=== PATIENT | male | born 1985 | race African-American/Black ===

== ENCOUNTER 2017-01-18 18:05 | Emergency (ER) | payer OTHER ==
[2017-01-18] MEDS ORDERED: RX INFO: IV CONTRAST WAS GIVEN 1 EACH MISC MISCELLANE PRN (18:32)
[2017-01-18 18:58] LABS: Basophils # (A) 0.1 k/uL (0-0.2); Basophils % (A) 1 %; CHCM 33.4; Eosinophils # (A) 0.4 k/uL (0-0.7); Eosinophils % (A) 4 %; HCT 45.1 % (39.0-53.0); HDW 2.87; HGB 14.6 gm/dL (13.0-17.5); Luc % (Auto) 2; Lymphocytes # (A) 2.5 k/uL (1.0-4.8); Lymphocytes % (A) 22 %; MCH 26.4 pg (25.0-35.0); MCHC 32.4 g/dL (31.0-37.0); MCV 81.5 fL (80.0-100.0); Monocytes # (A) 0.5 k/uL (0-1.0); Monocytes % (A) 5 %; Neutrophils # (A) 7.5 k/uL (1.3-7.7); Neutrophils % (A) 67 %; RBC 5.53 m/uL (4.30-5.90); RDW 15.3 % (11.5-15.5); WBC 11.3 k/uL (3.8-10.6); WBC (Perox) 10.36
[2017-01-18 19:05] LABS: ALT 52 U/L (21-72); AST 36 U/L (17-59); Alkaline Phosphatase 111 U/L (38-126); Anion Gap 13 mmol/L; Blood Urea Nitrogen 19 mg/dL (9-20); Calcium 9.7 mg/dL (8.4-10.2); Carbon Dioxide 24 mmol/L (22-30); Chloride 104 mmol/L (98-107); Glucose 112 mg/dL (74-99); Non-African American GFR(MDRD) >60 (>60 ml/min/1.73 sqM); Potassium 3.7 mmol/L (3.5-5.1); Sodium 141 mmol/L (137-145); Total Bilirubin 0.5 mg/dL (0.2-1.3); Total Protein 7.6 g/dL (6.3-8.2)
--- NOTE | 2017-01-18 19:19 | ED ---
SOB HPI - General Chief Complaint: Shortness of Breath Stated Complaint: STEVE, LEG SWELLING HEART RACING Source: patient Mode of arrival: ambulatory Limitations: no limitations - History of Present Illness Initial Comments: Patient is a 31-year-old male who presents for evaluation for bilateral lower extremity swelling and exertional shortness of breath with chest tightness that started today. Past medical history as below. Patient states that he has a history of a fast heart rate in the 100s to 110s. However, he stated that he was having some chest tightness today. He also noticed that his lower extremities were both swollen and felt tight. He also states that he was more short of breath than usual. Denies any coughing. No long-distance travel. No history of DVTs or pulmonary embolisms. No history of clotting disorders in the family. States that at times he just can't catch his breath and feels like his heart is racing more than usual. He currently denies fever, chills, headache, changes in vision, URI symptoms, cough, nausea, vomiting, diarrhea, pain or burning with urination. - Related Data Home Medications Medication Instructions Recorded Confirmed ALPRAZolam [Xanax] 2 mg PO TID 02/04/16 01/18/17 Hydrocodone/Acetaminophen [[place] 1 tab PO Q6HR PRN 02/04/16 01/18/17 7.5-325] amLODIPine [Norvasc] 10 mg PO DAILY 02/04/16 01/18/17 Losartan/Hydrochlorothiazide 1 tab PO DAILY 01/18/17 01/18/17 [Losartan-Hctz 100-25 mg Tab] Allergies Allergy/AdvReac Type Severity Reaction Status Date / Time No Known Allergies Allergy Verified 01/18/17 18:31 Review of Systems ROS Statement: Those systems with pertinent positive or pertinent negative responses have been documented in the HPI. ROS Other: All systems not noted in ROS Statement are negative. Past Medical History Past Medical History: Hypertension History of Any Multi-Drug Resistant Organisms: None Reported Past Surgical History: No Surgical Hx Reported Past Psychological History: Anxiety Smoking Status: Never smoker Past Alcohol Use History: None Reported Past Drug Use History: None Reported General Exam Limitations: no limitations General appearance: alert, in no apparent distress, other (Nontoxic appearing) Head exam: Present: atraumatic, normocephalic, normal inspection Eye exam: Present: normal appearance, PERRL, EOMI. Absent: scleral icterus, conjunctival injection, periorbital swelling ENT exam: Present: normal exam, mucous membranes moist Neck exam: Present: normal inspection. Absent: tenderness, meningismus, lymphadenopathy Respiratory exam: Present: normal lung sounds bilaterally, other (Clear bilaterally without wheezes rales or rhonchi). Absent: respiratory distress, wheezes, rales, rhonchi, stridor Cardiovascular Exam: Present: regular rate, normal rhythm, normal heart sounds, other (Normal S1 and S2. No murmurs.). Absent: systolic murmur, diastolic murmur, rubs, gallop, clicks GI/Abdominal exam: Present: soft, normal bowel sounds, other (Abdomen is soft and nontender.). Absent: distended, tenderness, guarding, rebound, rigid Extremities exam: Present: normal inspection, full ROM, normal capillary refill , pedal edema, other (Nonpitting edema to the lower chimneys bilaterally. No tenderness with palpation of the back of his calf bilaterally.). Absent: tenderness, joint swelling, calf tenderness Back exam: Present: normal inspection Neurological exam: Present: alert, oriented X3, CN II-XII intact Psychiatric exam: Present: normal affect, normal mood Skin exam: Present: warm, dry, intact, normal color. Absent: rash Course Vital Signs 01/18/17 01/18/17 01/18/17 18:07 18:44 19:57 Temperature 98.7 F Pulse Rate 112 H 101 H 84 Respiratory 20 20 16 Rate Blood Pressure 142/81 161/86 162/70 O2 Sat by Pulse 97 95 99 Oximetry 01/18/17 21:29 Temperature 98.4 F Pulse Rate 88 Respiratory 18 Rate Blood Pressure 154/70 O2 Sat by Pulse 99 Oximetry Medical Decision Making - Medical Decision Making Patient is a 31-year-old male presents for evaluation for bilateral lower extremity swelling and exertional dyspnea was some chest tightness. We'll order a venous duplex of the lower chimneys bilaterally, CTA of the chest to rule out pulmonary embolism, ASIC labs with a troponin and BNP. 1835: Sinus tachycardia at 103. First-degree AV block. OR interval 218. QRS 106. QTc 440. Questionable S1 Q3 T3. Otherwise no ST changes. 1919: CBC and CMP within normal limits. Awaiting troponin and imaging. 2120: Venous duplex negative. CTA of his chest did not reveal a pulmonary embolism. Had a discussion with the patient at bedside with his mother. Believe his symptoms at this time related to dehydration. Encouraged elevating legs at night. Plenty of fluids. His heart rate is on the low 100s which again is at his baseline. Shortness of breath is resolved. Has a primary care physician in which she can follow-up with. Comfortable with discharge home. Discussed specific signs and symptoms on when to return to the emergency department for further evaluation. Voiced understanding and will follow-up. Also discussed that the patient needs to repeat his blood pressure is slightly elevated today. - Lab Data Result diagrams: 01/18/17 18:41 01/18/17 18:41 Lab Results 01/18/17 01/18/17 01/18/17 Range/Units 18:41 18:41 18:41 WBC 11.3 H (3.8-10.6) k/uL RBC 5.53 (4.30-5.90) m/uL Hgb 14.6 (13.0-17.5) gm/dL Hct 45.1 (39.0-53.0) % MCV 81.5 (80.0-100.0) fL MCH 26.4 (25.0-35.0) pg MCHC 32.4 (31.0-37.0) g/dL RDW 15.3 (11.5-15.5) % Plt Count 339 (150-450) k/uL Neutrophils % 67 % Lymphocytes % 22 % Monocytes % 5 % Eosinophils % 4 % Basophils % 1 % Neutrophils # 7.5 (1.3-7.7) k/uL Lymphocytes # 2.5 (1.0-4.8) k/uL Monocytes # 0.5 (0-1.0) k/uL Eosinophils # 0.4 (0-0.7) k/uL Basophils # 0.1 (0-0.2) k/uL Sodium 141 (137-145) mmol/L Potassium 3.7 (3.5-5.1) mmol/L Chloride 104 (98-107) mmol/L Carbon Dioxide 24 (22-30) mmol/L Anion Gap 13 mmol/L BUN 19 (9-20) mg/dL Creatinine 1.00 (0.66-1.25) mg/dL Est GFR (MDRD) Af Amer >60 (>60 ml/min/1.73 sqM) Est GFR (MDRD) Non-Af >60 (>60 ml/min/1.73 sqM) Glucose 112 H (74-99) mg/dL Calcium 9.7 (8.4-10.2) mg/dL Total Bilirubin 0.5 (0.2-1.3) mg/dL AST 36 (17-59) U/L ALT 52 (21-72) U/L Alkaline Phosphatase 111 (38-126) U/L Troponin I (0.000-0.034) ng/mL NT-Pro-B Natriuret Pep <11 pg/mL Total Protein 7.6 (6.3-8.2) g/dL Albumin 4.3 (3.5-5.0) g/dL 01/18/17 Range/Units 18:41 WBC (3.8-10.6) k/uL RBC (4.30-5.90) m/uL Hgb (13.0-17.5) gm/dL Hct (39.0-53.0) % MCV (80.0-100.0) fL MCH (25.0-35.0) pg MCHC (31.0-37.0) g/dL RDW (11.5-15.5) % Plt Count (150-450) k/uL Neutrophils % % Lymphocytes % % Monocytes % % Eosinophils % % Basophils % % Neutrophils # (1.3-7.7) k/uL Lymphocytes # (1.0-4.8) k/uL Monocytes # (0-1.0) k/uL Eosinophils # (0-0.7) k/uL Basophils # (0-0.2) k/uL Sodium (137-145) mmol/L Potassium (3.5-5.1) mmol/L Chloride (98-107) mmol/L Carbon Dioxide (22-30) mmol/L Anion Gap mmol/L BUN (9-20) mg/dL Creatinine (0.66-1.25) mg/dL Est GFR (MDRD) Af Amer (>60 ml/min/1.73 sqM) Est GFR (MDRD) Non-Af (>60 ml/min/1.73 sqM) Glucose (74-99) mg/dL Calcium (8.4-10.2) mg/dL Total Bilirubin (0.2-1.3) mg/dL AST (17-59) U/L ALT (21-72) U/L Alkaline Phosphatase (38-126) U/L Troponin I <0.012 (0.000-0.034) ng/mL NT-Pro-B Natriuret Pep pg/mL Total Protein (6.3-8.2) g/dL Albumin (3.5-5.0) g/dL Disposition Clinical Impression: Leg swelling, Shortness of breath, Hypertension Disposition: HOME SELF-CARE Condition: Good Instructions: Leg Edema (ED) Referrals: Rafiq Mendoza MD [Primary Care Provider] - 1-2 days
--- NOTE | 2017-01-18 20:09 | CT ---
EXAMINATION TYPE: CT angio chest DATE OF EXAM: 01/18/2017 COMPARISON: NONE HISTORY: CHEST PAIN/BILATERAL LEG SWELLING. CT DLP: 946.8 mGycm CONTRAST: CT chest with contrast and 3D reconstruction with MIP imaging is performed with IV Contrast, patient injected with 80 mL of Omnipaque 350. Contrast-enhanced CT of the chest was performed through the course of the pulmonary arteries with emily g and mediastinal window settings submitted. 3D reconstruction with MIP imaging was also performed. PULMONARY ARTERIES: The pulmonary arteries and their major tributaries are patent. I do not see anthony dence for sizable filling defect to suggest pulmonary embolic process. LUNGS: The lungs are clear and free of infiltrate. No evidence for atelectasis. No pulmonary nodule or mass is detected. No pleural effusion. MEDIASTINUM: Thoracic aorta is of normal caliber . The heart is not enlarged. No evidence for media stinal mass. No mediastinal lymph nodes greater than 1cm. HILAR STRUCTURES: No evidence for mass. No hilar lymph nodes greater than 1 cm. UPPER ABDOMEN: No significant abnormality is seen. IMPRESSION: 1. No evidence for Pulmonary embolism at this time.
--- NOTE | 2017-01-18 21:13 | US ---
EXAMINATION TYPE: US venous doppler duplex LE DATE OF EXAM: 01/18/2017 9:06 PM COMPARISON: NONE CLINICAL HISTORY: Pain. BILATERAL EDEMA SIDE PERFORMED: Bilateral TECHNIQUE: The lower extremity deep venous system is examined utilizing real time linear array sonog ana with graded compression, doppler sonography and color-flow sonography. VESSELS IMAGED: External Iliac Vein (EIV) Common Femoral Vein Deep Femoral Vein Greater Saphenous Vein * Femoral Vein Popliteal Vein Small Saphenous Vein * Proximal Calf Veins (* superficial vessels) Grayscale, color doppler, spectral doppler imaging performed of the deep veins of the lower extremiti es. There is normal flow, compressibility, vascular waveforms. Right Leg: Negative for DVT Left Leg: Negative for DVT IMPRESSION: No evidence for DVT bilateral legs
[2017-01-18 21:30] VITALS: BP 154/70; PULSE 88; RESP 18; TEMP 98.4
== END 2017-01-18 21:29 | disposition home or self-care (01) ==
LOC: EC 18:05
DX: R06.02 Shortness of breath (principal); M79.89 Other specified soft tissue disorders; I10 Essential (primary) hypertension; F41.9 Anxiety disorder, unspecified; Z79.899 Other long term (current) drug therapy
CPT/HCPCS: 36415; 93005; 83880; 80053; 84484; 85025; 93970; 71275; 99285; Q9967

== ENCOUNTER 2017-04-13 15:03 | Emergency (ER) | payer OTHER ==
[2017-04-13] MEDS ORDERED: IPRATROPIUM-ALBUTEROL 3 ML NEB INHALATION STA (16:01)
--- NOTE | 2017-04-13 16:01 | ED ---
General Adult HPI - General Chief complaint: Shortness of Breath Stated complaint: SOB-sent by Time Seen by Provider: 04/13/17 15:54 Source: patient Mode of arrival: wheelchair Limitations: no limitations - History of Present Illness Initial comments: Rachael is a morbidly obese 31-year-old -Portuguese male who presents to the emergency department from his PCP office for evaluation of shortness of breath. 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 Patient reports in the past couple of weeks he has noticed worsening shortness of breath. Patient reports he feels short of breath with any exertion, and that he wakes the night gasping for air. Patient reports he feels the best when he was sitting in a reclined position relaxing. Patient was seen by his primary care physician, had chest x-rays done and was sent to the emergency department for cardiac evaluation. Patient denies any episodes of chest pain or palpitations. He does report a strong family history of cardiac disease as well as a personal history of poorly controlled hypertension. Patient does report to weight gain, however he denies any lower extremity edema. Patient reports that as a child he was never diagnosed with asthma but did occasionally use an inhaler. He has not used in a number of years. Feel like he is wheezing. - Related Data Home Medications Medication Instructions Recorded Confirmed ALPRAZolam [Xanax] 2 mg PO TID 02/04/16 04/13/17 Hydrocodone/Acetaminophen [[place] 1 tab PO Q6HR PRN 02/04/16 04/13/17 7.5-325] amLODIPine [Norvasc] 10 mg PO DAILY 02/04/16 04/13/17 Losartan/Hydrochlorothiazide 1 tab PO DAILY 01/18/17 04/13/17 [Losartan-Hctz 100-25 mg Tab] diphenhydrAMINE HCL [Benadryl] 25 mg PO HS PRN 04/13/17 04/13/17 Allergies Allergy/AdvReac Type Severity Reaction Status Date / Time erythromycin base Allergy Unknown Verified 04/13/17 16:06 Review of Systems ROS Statement: Those systems with pertinent positive or pertinent negative responses have been documented in the HPI. ROS Other: All systems not noted in ROS Statement are negative. Constitutional: Denies: fever, chills ENT: Denies: throat pain Respiratory: Reports: dyspnea, other (orthopnea, paroxysmal nocturnal dyspnea). Denies: cough Cardiovascular: Reports: dyspnea on exertion, orthopnea, paroxysmal nocturnal dyspnea. Denies: chest pain, palpitations, edema, syncope Endocrine: Reports: fatigue Gastrointestinal: Denies: abdominal pain, nausea, vomiting Genitourinary: Denies: urgency, dysuria Musculoskeletal: Denies: back pain Skin: Denies: rash, lesions Neurological: Denies: headache, weakness Psychiatric: Denies: anxiety, depression Hematological/Lymphatic: Denies: easy bleeding, easy bruising Past Medical History Past Medical History: Hypertension History of Any Multi-Drug Resistant Organisms: None Reported Past Surgical History: No Surgical Hx Reported Past Psychological History: Anxiety Smoking Status: Never smoker Past Alcohol Use History: None Reported Past Drug Use History: None Reported General Exam Limitations: no limitations General appearance: alert, in no apparent distress Head exam: Present: atraumatic Eye exam: Present: normal appearance, PERRL ENT exam: Present: normal exam, normal oropharynx Neck exam: Present: other (skin changes consistent with diabetes) Respiratory exam: Present: wheezes Cardiovascular Exam: Present: regular rate GI/Abdominal exam: Present: soft. Absent: distended Rectal exam: Present: deferred Extremities exam: Present: normal capillary refill. Absent: pedal edema, calf tenderness Neurological exam: Present: alert, oriented X3 Psychiatric exam: Present: normal affect, normal mood Skin exam: Present: warm, dry Course Vital Signs 04/13/17 04/13/17 04/13/17 15:07 16:18 16:27 Temperature 99.1 F Pulse Rate 100 101 H 101 H Respiratory 18 Rate Blood Pressure 143/81 O2 Sat by Pulse 96 Oximetry 04/13/17 18:48 Temperature 98.1 F Pulse Rate 88 Respiratory 17 Rate Blood Pressure 160/89 O2 Sat by Pulse 97 Oximetry Medical Decision Making - Medical Decision Making Patient was seen and evaluated, history obtained from patient, medical record Patient with progressively worsening SOB x2 weeks, is exposed to multiple chemicals at work Patient body habitus and history of waking from sleep gasping for air are concerning for EZEQUIEL or obesity hypoventilation syndrome Labs ordered to evaluate for possible PE vs coronary syndrome resulting in heart failure Patient chest x-ray was reviewed, no acute findings Labs were reviewed, d-dimer, troponin, BNP were all negative I offered the patient observation for reevaluation of his shortness of breath, patient states that he doesn't feel he needs to be in the hospital this time and much prefer discharge home. Patient does have a good relationship with his primary care physician and will follow closely. I do have a high concern that the patient has obstructive sleep apnea as well as obesity hypoventilation syndrome I discussed this with the patient who states that he has been referred to sleep studies in the past however he has not followed up. I advised the patient that he needs to follow up with his primary care physician, referral to cardiology as well as pursue sleep study. I advised the patient that he would likely benefit from weight loss, patient is aware of this. All questions pertaining to care were answered to the best of my ability the patient was discharged home in stable condition with instructions to return for any worsening of his condition or development of new or concerning symptoms. - Lab Data Result diagrams: 04/13/17 16:28 04/13/17 16:28 Lab Results 04/13/17 04/13/17 04/13/17 Range/Units 16:28 16:28 16:28 WBC 13.0 H (3.8-10.6) k/uL RBC 6.04 H (4.30-5.90) m/uL Hgb 15.5 (13.0-17.5) gm/dL Hct 49.5 (39.0-53.0) % MCV 81.9 (80.0-100.0) fL MCH 25.6 (25.0-35.0) pg MCHC 31.2 (31.0-37.0) g/dL RDW 16.5 H (11.5-15.5) % Plt Count 374 (150-450) k/uL Neutrophils % 68 % Lymphocytes % 21 % Monocytes % 4 % Eosinophils % 4 % Basophils % 1 % Neutrophils # 8.8 H (1.3-7.7) k/uL Lymphocytes # 2.8 (1.0-4.8) k/uL Monocytes # 0.6 (0-1.0) k/uL Eosinophils # 0.5 (0-0.7) k/uL Basophils # 0.1 (0-0.2) k/uL Anisocytosis Slight PT (9.0-12.0) sec INR (<1.2) APTT (22.0-30.0) sec Sodium 140 (137-145) mmol/L Potassium 5.4 H (3.5-5.1) mmol/L Chloride 107 (98-107) mmol/L Carbon Dioxide 23 (22-30) mmol/L Anion Gap 10 mmol/L BUN 17 (9-20) mg/dL Creatinine 0.79 (0.66-1.25) mg/dL Est GFR (MDRD) Af Amer >60 (>60 ml/min/1.73 sqM) Est GFR (MDRD) Non-Af >60 (>60 ml/min/1.73 sqM) Glucose 144 H (74-99) mg/dL Calcium 9.7 (8.4-10.2) mg/dL Total Bilirubin 0.6 (0.2-1.3) mg/dL AST 41 (17-59) U/L ALT 42 (21-72) U/L Alkaline Phosphatase 81 (38-126) U/L Troponin I (0.000-0.034) ng/mL NT-Pro-B Natriuret Pep 32 pg/mL Total Protein 8.2 (6.3-8.2) g/dL Albumin 4.3 (3.5-5.0) g/dL Urine Color Urine Appearance (Clear) Urine pH (5.0-8.0) Ur Specific [place] (1.001-1.035) Urine Protein (Negative) Urine Glucose (UA) (Negative) Urine Ketones (Negative) Urine Blood (Negative) Urine Nitrite (Negative) Urine Bilirubin (Negative) Urine Urobilinogen (<2.0) mg/dL Ur Leukocyte Esterase (Negative) 04/13/17 04/13/17 04/13/17 Range/Units 16:28 16:28 16:33 WBC (3.8-10.6) k/uL RBC (4.30-5.90) m/uL Hgb (13.0-17.5) gm/dL Hct (39.0-53.0) % MCV (80.0-100.0) fL MCH (25.0-35.0) pg MCHC (31.0-37.0) g/dL RDW (11.5-15.5) % Plt Count (150-450) k/uL Neutrophils % % Lymphocytes % % Monocytes % % Eosinophils % % Basophils % % Neutrophils # (1.3-7.7) k/uL Lymphocytes # (1.0-4.8) k/uL Monocytes # (0-1.0) k/uL Eosinophils # (0-0.7) k/uL Basophils # (0-0.2) k/uL Anisocytosis PT 10.9 (9.0-12.0) sec INR 1.1 (<1.2) APTT 20.9 L (22.0-30.0) sec Sodium (137-145) mmol/L Potassium (3.5-5.1) mmol/L Chloride (98-107) mmol/L Carbon Dioxide (22-30) mmol/L Anion Gap mmol/L BUN (9-20) mg/dL Creatinine (0.66-1.25) mg/dL Est GFR (MDRD) Af Amer (>60 ml/min/1.73 sqM) Est GFR (MDRD) Non-Af (>60 ml/min/1.73 sqM) Glucose (74-99) mg/dL Calcium (8.4-10.2) mg/dL Total Bilirubin (0.2-1.3) mg/dL AST (17-59) U/L ALT (21-72) U/L Alkaline Phosphatase (38-126) U/L Troponin I <0.012 (0.000-0.034) ng/mL NT-Pro-B Natriuret Pep pg/mL Total Protein (6.3-8.2) g/dL Albumin (3.5-5.0) g/dL Urine Color Yellow Urine Appearance Clear (Clear) Urine pH 5.5 (5.0-8.0) Ur Specific [place] 1.019 (1.001-1.035) Urine Protein Negative (Negative) Urine Glucose (UA) Negative (Negative) Urine Ketones Negative (Negative) Urine Blood Negative (Negative) Urine Nitrite Negative (Negative) Urine Bilirubin Negative (Negative) Urine Urobilinogen <2.0 (<2.0) mg/dL Ur Leukocyte Esterase Negative (Negative) Disposition Clinical Impression: Shortness of breath, Obesity hypoventilation syndrome, EZEQUIEL (obstructive sleep apnea) Disposition: HOME SELF-CARE Condition: Good Instructions: Snoring (ED), Dyspnea (ED) Referrals: Rafiq Mendoza MD [Primary Care Provider] - 1-2 days
[2017-04-13 16:41] LABS: Appearance,Urine Clear (Clear); Bilirubin,Urine Negative (Negative); Glucose,Urine (UA) Negative (Negative); Ketones,Urine Negative (Negative); Leukocyte Esterase,Urine Negative (Negative); Nitrite,Urine Negative (Negative); PH, Urine 5.5 (5.0-8.0); Protein,Urine Negative (Negative); Specific Gravity,Urine 1.019 (1.001-1.035); UA Billing (MACRO vs. MICRO) CHEM; Urobilinogen,Urine <2.0 mg/dL (<2.0)
[2017-04-13 16:51] LABS: Anisocytosis Slight; Basophils # (A) 0.1 k/uL (0-0.2); Basophils % (A) 1 %; CH 26.2; CHCM 32.2; Eosinophils # (A) 0.5 k/uL (0-0.7); Eosinophils % (A) 4 %; HCT 49.5 % (39.0-53.0); HDW 2.82; HGB 15.5 gm/dL (13.0-17.5); Luc # (Auto) 0.14; Luc % (Auto) 1; Lymphocytes # (A) 2.8 k/uL (1.0-4.8); Lymphocytes % (A) 21 %; MCH 25.6 pg (25.0-35.0); MCHC 31.2 g/dL (31.0-37.0); MCV 81.9 fL (80.0-100.0); Mean Platelet Volume 8.3; Monocytes # (A) 0.6 k/uL (0-1.0); Monocytes % (A) 4 %; Neutrophils # (A) 8.8 k/uL (1.3-7.7); Neutrophils % (A) 68 %; RBC 6.04 m/uL (4.30-5.90); RDW 16.5 % (11.5-15.5); WBC (Perox) 12.67
[2017-04-13 16:55] LABS: ALT 42 U/L (21-72); AST 41 U/L (17-59); Alkaline Phosphatase 81 U/L (38-126); Anion Gap 10 mmol/L; Blood Urea Nitrogen 17 mg/dL (9-20); Calcium 9.7 mg/dL (8.4-10.2); Carbon Dioxide 23 mmol/L (22-30); Chloride 107 mmol/L (98-107); Glucose 144 mg/dL (74-99); Non-African American GFR(MDRD) >60 (>60 ml/min/1.73 sqM); Sodium 140 mmol/L (137-145); Total Bilirubin 0.6 mg/dL (0.2-1.3); Total Protein 8.2 g/dL (6.3-8.2)
[2017-04-13 16:57] LABS: Partial Thromboplastin Time 20.9 sec (22.0-30.0); Prothrombin Time 10.9 sec (9.0-12.0)
[2017-04-13 16:58] LABS: INR 1.1 (<1.2)
[2017-04-13 17:00] LABS: Potassium 5.4 mmol/L (3.5-5.1)
[2017-04-13 18:50] VITALS: BP 160/89; PULSE 88; RESP 17; TEMP 98.1
== END 2017-04-13 18:47 | disposition home or self-care (01) ==
LOC: EC 15:03
DX: E66.2 Morbid (severe) obesity with alveolar hypoventilation (principal); R06.02 Shortness of breath; R06.2 Wheezing; I10 Essential (primary) hypertension; F41.9 Anxiety disorder, unspecified; Z79.899 Other long term (current) drug therapy; Z88.1 Allergy status to other antibiotic agents; Z68.43 Body mass index [BMI] 50.0-59.9, adult; Z82.49 Family history of ischemic heart disease and other diseases of the circulatory system
CPT/HCPCS: 36415; 71020; 80053; 81003; 83880; 84484; 85025; 85610; 85730; 93005; 94640; 99285

== ENCOUNTER → 2017-04-13 | Outpatient (CLI) | payer OTHER ==
--- NOTE | 2017-04-13 13:01 | XR ---
EXAMINATION TYPE: XR chest 2V DATE OF EXAM: 04/13/2017 COMPARISON: 02/07/2012 TECHNIQUE: PA and lateral views submitted. HISTORY: Shortness of breath FINDINGS: The lungs are clear and there is no pneumothorax, pleural effusion, or focal pneumonia. Biapical pl eural thickening noted. IMPRESSION: 1. No acute process.
== END | disposition home or self-care (01) ==
LOC: RADXRMAIN 12:36
PROVIDERS: ATTEND Physician Assistant
DX: R06.00 Dyspnea, unspecified (principal)
CPT/HCPCS: 71020

== ENCOUNTER 2017-04-16 08:34 | Emergency (ER) | payer OTHER ==
--- NOTE | 2017-04-16 09:26 | ED ---
General Adult HPI - General Chief complaint: Recheck/Abnormal Lab/Rx Stated complaint: STEVE, CHEST PAIN Time Seen by Provider: 04/16/17 09:00 Source: patient, RN notes reviewed, old records reviewed Mode of arrival: wheelchair Limitations: no limitations - History of Present Illness Initial comments: Patient is a 31-year-old male who presents emergency room today with a chief complaint of shortness breath over the last few weeks. Patient does admit that he was sent in by the family doctor a few days ago. States he had EKG which showed a bundle branch block here. He states that he's been feeling short of breath with exertion over the last week. States still having same symptoms. Not feeling any better. Patient denies any symptoms. States at times chest pain. Currently not having chest pain at this time. Denies any other complaints or symptoms. Patient denies any recent fever, chills, back pain, abdominal pain, nausea or vomiting, numbness or tingling, dysuria or hematuria, constipation or diarrhea, headaches or visual changes, or any other complaints. - Related Data Home Medications Medication Instructions Recorded Confirmed ALPRAZolam [Xanax] 2 mg PO TID 02/04/16 04/16/17 Hydrocodone/Acetaminophen [[place] 1 tab PO Q6HR PRN 02/04/16 04/16/17 7.5-325] amLODIPine [Norvasc] 10 mg PO DAILY 02/04/16 04/16/17 Losartan/Hydrochlorothiazide 1 tab PO DAILY 01/18/17 04/16/17 [Losartan-Hctz 100-25 mg Tab] diphenhydrAMINE HCL [Benadryl] 25 mg PO HS PRN 04/13/17 04/16/17 Amoxicillin 500 mg PO TID 04/16/17 04/16/17 Previous Rx's Medication Instructions Recorded Albuterol Inhaler [Ventolin Hfa 1 - 2 puff INHALATION Q4-6H PRN #1 04/16/17 Inhaler] inhaler Allergies Allergy/AdvReac Type Severity Reaction Status Date / Time erythromycin base Allergy Unknown Verified 04/16/17 09:12 Review of Systems ROS Statement: Those systems with pertinent positive or pertinent negative responses have been documented in the HPI. ROS Other: All systems not noted in ROS Statement are negative. Past Medical History Past Medical History: Hypertension History of Any Multi-Drug Resistant Organisms: None Reported Past Surgical History: No Surgical Hx Reported Past Psychological History: Anxiety Smoking Status: Never smoker Past Alcohol Use History: None Reported Past Drug Use History: None Reported General Exam - General Exam Comments Initial Comments: General: The patient is awake and alert, in no distress, and does not appear acutely ill. Eye: Pupils are equal, round and reactive to light, extra-ocular movements are intact. No nystagmus. There is normal conjunctiva bilaterally. No signs of icterus. Ears, nose, mouth and throat: There are moist mucous membranes and no oral lesions. Neck: The neck is supple, there is no tenderness or JVD. Cardiovascular: There is a regular rate and rhythm. No murmur, rub or gallop is appreciated. Respiratory: Lungs are clear to auscultation, respirations are non-labored, breath sounds are equal. No wheezes, stridor, rales, or rhonchi. Gastrointestinal: Soft, non-distended, non-tender abdomen without masses or organomegaly noted. There is no rebound or guarding present. No CVA tenderness. Bowel sounds are unremarkable. Musculoskeletal: Normal ROM, no tenderness. Strength 5/5. Sensation intact. Pulses equal bilaterally 2+. Neurological: A&O x 3. CN II-XII intact, There are no obvious motor or sensory deficits. Coordination appears grossly intact. Speech is normal. Skin: Skin is warm and dry and no rashes or lesions are noted. Psychiatric: Cooperative, appropriate mood & affect, normal judgment. Limitations: no limitations Course Vital Signs 04/16/17 04/16/17 08:44 11:08 Temperature 96.4 F L Pulse Rate 108 H 104 H Respiratory 20 16 Rate Blood Pressure 141/83 143/70 O2 Sat by Pulse 100 96 Oximetry EKG Findings - EKG Comments: EKG Findings:: EKG performed at 0939: A 12-lead EKG was performed and interpreted by me as showing the following: Rate is 98, and rhythm is normal sinus. There are normal QRS complexes and normal R-wave progression. ST segments have no elevation or depression, and OH segments appear normal. Medical Decision Making - Medical Decision Making Patient's labs been reviewed are negative for any acute abnormalities. Negative cardiac enzymes. Patient's recent visits here in the emergency room just 3 days ago was reviewed and had similar findings. Was discussed with patient about following up the sleep study with possible obstructive sleep apnea. Patient states she still try to follow-up. He states she's tried follow -up with shift superintendent caustic cresylate as well. At this time due to patient's symptoms. We discussed about the possibility of doing a CT of his chest. [place] that the symptoms were getting worse. He states that this time he is feeling relatively comfortable does not want CAT scan performed. Patient did have a negative d- dimer just days ago. Patient's pulse ox still here in the emergency room. Patient states HIS family doctor at this time. Has declined any CT or further evaluation. Patient will be discharged home advised follow-up. Advised return if any symptoms increase or worsen. - Lab Data Result diagrams: 04/16/17 09:58 04/16/17 09:58 Lab Results 04/16/17 04/16/17 04/16/17 Range/Units 09:58 09:58 09:58 WBC 10.7 H (3.8-10.6) k/uL RBC 5.83 (4.30-5.90) m/uL Hgb 15.4 (13.0-17.5) gm/dL Hct 47.6 (39.0-53.0) % MCV 81.6 (80.0-100.0) fL MCH 26.4 (25.0-35.0) pg MCHC 32.4 (31.0-37.0) g/dL RDW 15.9 H (11.5-15.5) % Plt Count 358 (150-450) k/uL Neutrophils % 71 % Lymphocytes % 19 % Monocytes % 4 % Eosinophils % 4 % Basophils % 1 % Neutrophils # 7.6 (1.3-7.7) k/uL Lymphocytes # 2.0 (1.0-4.8) k/uL Monocytes # 0.4 (0-1.0) k/uL Eosinophils # 0.4 (0-0.7) k/uL Basophils # 0.1 (0-0.2) k/uL PT (9.0-12.0) sec INR (<1.2) APTT (22.0-30.0) sec Sodium 140 (137-145) mmol/L Potassium 4.2 (3.5-5.1) mmol/L Chloride 106 (98-107) mmol/L Carbon Dioxide 22 (22-30) mmol/L Anion Gap 12 mmol/L BUN 20 (9-20) mg/dL Creatinine 0.87 (0.66-1.25) mg/dL Est GFR (MDRD) Af Amer >60 (>60 ml/min/1.73 sqM) Est GFR (MDRD) Non-Af >60 (>60 ml/min/1.73 sqM) Glucose 142 H (74-99) mg/dL Calcium 10.1 (8.4-10.2) mg/dL Magnesium 1.8 (1.6-2.3) mg/dL Total Bilirubin 0.4 (0.2-1.3) mg/dL AST 25 (17-59) U/L ALT 47 (21-72) U/L Alkaline Phosphatase 90 (38-126) U/L Total Creatine Kinase 189 H (55-170) U/L CK-MB (CK-2) 2.2 (0.0-2.4) ng/mL CK-MB (CK-2) Rel Index 1.2 Troponin I <0.012 (0.000-0.034) ng/mL NT-Pro-B Natriuret Pep pg/mL Total Protein 7.6 (6.3-8.2) g/dL Albumin 4.0 (3.5-5.0) g/dL 04/16/17 04/16/17 Range/Units 09:58 09:58 WBC (3.8-10.6) k/uL RBC (4.30-5.90) m/uL Hgb (13.0-17.5) gm/dL Hct (39.0-53.0) % MCV (80.0-100.0) fL MCH (25.0-35.0) pg MCHC (31.0-37.0) g/dL RDW (11.5-15.5) % Plt Count (150-450) k/uL Neutrophils % % Lymphocytes % % Monocytes % % Eosinophils % % Basophils % % Neutrophils # (1.3-7.7) k/uL Lymphocytes # (1.0-4.8) k/uL Monocytes # (0-1.0) k/uL Eosinophils # (0-0.7) k/uL Basophils # (0-0.2) k/uL PT 10.5 (9.0-12.0) sec INR 1.0 (<1.2) APTT 25.6 (22.0-30.0) sec Sodium (137-145) mmol/L Potassium (3.5-5.1) mmol/L Chloride (98-107) mmol/L Carbon Dioxide (22-30) mmol/L Anion Gap mmol/L BUN (9-20) mg/dL Creatinine (0.66-1.25) mg/dL Est GFR (MDRD) Af Amer (>60 ml/min/1.73 sqM) Est GFR (MDRD) Non-Af (>60 ml/min/1.73 sqM) Glucose (74-99) mg/dL Calcium (8.4-10.2) mg/dL Magnesium (1.6-2.3) mg/dL Total Bilirubin (0.2-1.3) mg/dL AST (17-59) U/L ALT (21-72) U/L Alkaline Phosphatase (38-126) U/L Total Creatine Kinase (55-170) U/L CK-MB (CK-2) (0.0-2.4) ng/mL CK-MB (CK-2) Rel Index Troponin I (0.000-0.034) ng/mL NT-Pro-B Natriuret Pep <11 pg/mL Total Protein (6.3-8.2) g/dL Albumin (3.5-5.0) g/dL Disposition Clinical Impression: Shortness of breath, EZEQUIEL (obstructive sleep apnea) Disposition: HOME SELF-CARE Condition: Good Instructions: Dyspnea (ED) Additional Instructions: Please follow-up the shift superintendent caustic cresylate/family doctor in the next 1-2 days. Please return to emergency room if any symptoms increase worsen or for new concerns. Prescriptions: Albuterol Inhaler [Ventolin Hfa Inhaler] 1 - 2 puff INHALATION Q4-6H PRN #1 inhaler PRN Reason: Cough Referrals: Rafiq Mendoza MD [Primary Care Provider] - 1-2 days Time of Disposition: 11:30
[2017-04-16 10:20] LABS: Basophils # (A) 0.1 k/uL (0-0.2); Basophils % (A) 1 %; CH 26.2; CHCM 32.3; Eosinophils # (A) 0.4 k/uL (0-0.7); Eosinophils % (A) 4 %; HCT 47.6 % (39.0-53.0); HDW 2.79; HGB 15.4 gm/dL (13.0-17.5); Luc % (Auto) 1; Lymphocytes % (A) 19 %; MCH 26.4 pg (25.0-35.0); MCHC 32.4 g/dL (31.0-37.0); MCV 81.6 fL (80.0-100.0); Mean Platelet Volume 8.1; Monocytes # (A) 0.4 k/uL (0-1.0); Monocytes % (A) 4 %; Neutrophils # (A) 7.6 k/uL (1.3-7.7); Neutrophils % (A) 71 %; RBC 5.83 m/uL (4.30-5.90); RDW 15.9 % (11.5-15.5); WBC 10.7 k/uL (3.8-10.6); WBC (Perox) 10.63
[2017-04-16 10:28] LABS: Partial Thromboplastin Time 25.6 sec (22.0-30.0); Prothrombin Time 10.5 sec (9.0-12.0)
[2017-04-16 10:39] LABS: ALT 47 U/L (21-72); AST 25 U/L (17-59); Alkaline Phosphatase 90 U/L (38-126); Anion Gap 12 mmol/L; Blood Urea Nitrogen 20 mg/dL (9-20); Calcium 10.1 mg/dL (8.4-10.2); Carbon Dioxide 22 mmol/L (22-30); Chloride 106 mmol/L (98-107); Glucose 142 mg/dL (74-99); Magnesium 1.8 mg/dL (1.6-2.3); Non-African American GFR(MDRD) >60 (>60 ml/min/1.73 sqM); Potassium 4.2 mmol/L (3.5-5.1); Sodium 140 mmol/L (137-145); Total Bilirubin 0.4 mg/dL (0.2-1.3); Total Protein 7.6 g/dL (6.3-8.2)
[2017-04-16 10:45] LABS: Creatine Kinase 189 U/L (55-170)
[2017-04-16 10:59] LABS: Creatine Kinase MB 2.2 ng/mL (0.0-2.4); Troponin I <0.012 ng/mL (0.000-0.034)
--- NOTE | 2017-04-16 11:08 | XR ---
EXAMINATION TYPE: XR chest 2V DATE OF EXAM: 04/16/2017 COMPARISON: 04/13/2017 HISTORY: 31-year-old male with chest pain, difficulty breathing TECHNIQUE: PA and lateral views FINDINGS: Heart is normal size. Aorta and pulmonary vasculature within normal limits. No consolidation or pleur al effusion. IMPRESSION: No acute cardiopulmonary process.
[2017-04-16 11:43] VITALS: BP 139/81; PULSE 101; RESP 20; TEMP 97.9
== END 2017-04-16 11:43 | disposition home or self-care (01) ==
LOC: EC 08:34
DX: G47.33 Obstructive sleep apnea (adult) (pediatric) (principal); R06.02 Shortness of breath; I10 Essential (primary) hypertension; F41.9 Anxiety disorder, unspecified; Z88.1 Allergy status to other antibiotic agents; Z79.899 Other long term (current) drug therapy
CPT/HCPCS: 36415; 71020; 80053; 82550; 82553; 83735; 83880; 84484; 85025; 85610; 85730; 93005; 99285

== ENCOUNTER → 2017-04-17 | Outpatient (CLI) | payer OTHER ==
[~2017-04-17] MED LIST: REGADENOSON 0.4 MG/5 ML SYRINGE IV ONE
--- NOTE | 2017-04-17 10:00 | CT ---
EXAMINATION TYPE: CT angio chest DATE OF EXAM: 04/17/2017 COMPARISON: CT [employer]otech chest dated 01/18/2017 HISTORY: Chest pain, SOB CT DLP: 873.40 mGycm. Automated Exposure Control for Dose Reduction was Utilized. CONTRAST: CTA scan of the thorax is performed with IV Contrast, patient injected with 100 ml mL of Omnipaque 35 0, pulmonary embolism protocol. MIP Images are created on CT scanner and reviewed. FINDINGS: LUNGS: The lungs are grossly clear, there is no concerning parenchymal mass or nodule identified. 3 mm pulmonary nodule is seen in a subpleural location on series 6 image 88 within the left lower lobe , retrospectively unchanged from the prior. There is no pleural effusion or pneumothorax seen. The t racheobronchial tree is patent. MEDIASTINUM: There is suboptimal enhancement of the pulmonary artery and its branches, limiting evalu ation for emboli within the segmental and subsegmental branches. No central pulmonary embolus is iden tified. No pulmonary arterial enlargement with the main pulmonary artery measuring 2.9 cm. Ascending aorta is also not enlarged. There are no greater than 1 cm hilar or mediastinal lymph nodes. No ca rdiomegaly or pericardial effusion is seen. Small amount of residual triangular thymic tissue is seen within the superior mediastinum retrosternally. OTHER: Minimal multilevel degenerative changes of thoracic spine are noted. IMPRESSION: 1. Somewhat suboptimal examination given post patient body habitus. No central pulmonary embolus. 2. Retrospectively stable 3 mm left basilar pulmonary nodule, most certainly benign. Per the most rec ent Fleischner Society consensus criteria optional CT in one year could be performed to determine sta bility. 3. No focal consolidation, pleural effusion or pneumothorax within the lungs.
--- NOTE | 2017-04-17 11:49 | ECHOF ---
Referral Reason:I10 HTN,R06.02 sob,R07.9 chest pain MEASUREMENTS -------- HEIGHT: 182.9 cm WEIGHT: 183.3 kg BP: RVIDd: 3.0 cm (< 3.3) IVSd: 1.5 cm (0.6 - 1.1) LVIDd: 4.2 cm (3.9 - 5.3) LVPWd: 1.4 cm (0.6 - 1.1) IVSs: 1.8 cm LVIDs: 3.0 cm LVPWs: 1.4 cm LA Diam: 3.9 cm (2.7 - 3.8) LAESV Index (A-L): 18.69 ml/m Ao Diam: 3.5 cm (2.0 - 3.7) AV Cusp: 2.2 cm (1.5 - 2.6) LA Diam: 3.4 cm (2.7 - 3.8) EPSS: 0.1 cm MV E Boom: 0.71 m/s MV A Boom: 0.97 m/s MV E/A Ratio: 0.74 RAP: 5.00 mmHg RVSP: 15.86 mmHg MV EF SLOPE: 110.95 mm/s (70 - 150) MV EXCURSION: 2.02 cm (> 18.000) FINDINGS -------- Sinus rhythm. Morbid Obesity This was a techncally difficult study with suboptimal views, , Definity utilized for enhancement of images. The left ventricular size is normal. There is moderate concentric left ventricular hypertrophy. O verall left ventricular systolic function is normal with, an EF between 55 - 60 %. The right ventricle is normal in size. Normal LA size by volume 22+/-6 ml/m2. The right atrial size is normal. 1.5MG OF DEFINITY UTLIZED: 2 OR MORE WALL SEGMENTS NOT VISUALIZED. The aortic valve is trileaflet, and appears structurally normal. No aortic stenosis or regurgitation. No mitral regurgitation. Mild tricuspid regurgitation present. There is no evidence of pulmonary hypertension. The right v entricular systolic pressure, as measured by Doppler, is 15.86mmHg. The pulmonic valve was not well visualized. The aortic root size is normal. There is no pericardial effusion. CONCLUSIONS -------- 1. Morbid Obesity 2. This was a techncally difficult study with suboptimal views, , Definity utilized for enhancement o f images. 3. The left ventricular size is normal. 4. There is moderate concentric left ventricular hypertrophy. 5. Overall left ventricular systolic function is normal with, an EF between 55 - 60 %. 6. The right ventricle is normal in size. 7. Normal LA size by volume 22+/-6 ml/m2. 8. 1.5MG OF DEFINITY UTLIZED: 2 OR MORE WALL SEGMENTS NOT VISUALIZED. 9. No mitral regurgitation. 10. Mild tricuspid regurgitation present. 11. There is no evidence of pulmonary hypertension. 12. The right ventricular systolic pressure, as measured by Doppler, is 15.86mmHg. 13. The pulmonic valve was not well visualized. 14. The aortic root size is normal. 15. There is no pericardial effusion. FARM OPERATOR: Thuy Baptiste RDCS
--- NOTE | 2017-04-17 12:16 | NM ---
EXAMINATION TYPE: NM stress lexiscan cardiolite DATE OF EXAM: 04/17/2017 COMPARISON: NONE HISTORY: 31-year-old male hypertension, chest pain, shortness of breath TECHNIQUE: After the intravenous administration of 12.0 mCi Tc 99m Sestamibi - Cardiolite resting SP ECT images acquired 45 minutes post injection. The patient received 0.4mg Lexiscan, 28.6 mCi Tc 99m Sestamibi - Stress images obtained [address] injection FINDINGS: The technologist indicates that the patient weighs 400 pounds. Review of stress and rest SPECT images demonstrates extensive perfusion abnormalities throughout the heart, greater on the rest images. This is in keeping with extensive attenuation artifacts. The degre e of artifact makes this a very limited exam. Additionally, gated images seem to show relatively norm al contractility. However, a diminished LVEF of 44% was consistently calculated by the software. TID is calculated at 0.86, within normal limits. IMPRESSION: Very limited, probably nondiagnostic exam due to extensive attenuation artifacts. Even the estimated LVEF (44%) may be inaccurate as visually, the cardiac contractility appears to be relatively normal. On gated stress images, all oakes appear to augment and thicken appropriately on the stress images. F josether clinical correlation will be required.
--- NOTE | 2017-04-18 11:35 | EST ---
EXERCISE STRESS DATE OF SERVICE: 04/17/2017 AGE: 31 SEX: Male HT: 6'0" WT: 404 pounds PROTOCOL: Lexiscan Cardiolite STAGE: DURATION OF EXERCISE: HEART RATE REST: 98 BLOOD PRESSURE REST: 120/78 MAXIMUM HEART RATE ACHIEVED: 112 MAXIMUM BLOOD PRESSURE: 173/80 85% MPHR: 100% MPHR: METS: INDICATIONS: Chest pain, hypertension. CLINICAL INFORMATION: Patient was given Lexiscan injection over a period of 15 seconds. Peak heart rate of 112 was achieved. Maximum blood pressure of 173/80 mmHg was noted. The resting EKG shows normal sinus rhythm with normal NH interval and QRS duration and normal ST-T waves. No ST-segment depression suggestive of ischemia is noted. The results of the nuclear study will follow. JAILYN / EUSEBIA: [id number] /
== END | disposition home or self-care (01) ==
LOC: RADNMMAIN 08:47
PROVIDERS: ATTEND Family Medicine
DX: R91.1 Solitary pulmonary nodule (principal); R07.9 Chest pain, unspecified; R06.02 Shortness of breath; I10 Essential (primary) hypertension
CPT/HCPCS: 93017; 71275; 78452; C8929; A9500; Q9967; Q9957; J2785; 93306

== ENCOUNTER → 2017-08-28 | Outpatient (CLI) | payer OTHER ==
--- NOTE | 2017-08-29 10:15 | XR ---
EXAMINATION TYPE: XR knee complete LT DATE OF EXAM: 08/28/2017 COMPARISON: NONE HISTORY: Internal derangement of the left knee, fall, feels like dislocated TECHNIQUE: Three-view left knee FINDINGS: No acute fractures are evident. Patella appears to align normally within the patellofemoral joint space. Joint spaces are preserved. No joint effusions are evident. Follow-up exams can be performed 7-10 days from acute trauma for continued pain. If evaluation of sof t tissues would be of benefit, MRI could be performed. IMPRESSION: 1. No acute osseous abnormality left knee
== END | disposition home or self-care (01) ==
LOC: RAD 18:26
PROVIDERS: ATTEND Family Medicine
DX: M23.92 Unspecified internal derangement of left knee (principal)

== ENCOUNTER → 2017-09-17 | Outpatient (CLI) | payer OTHER ==
--- NOTE | 2017-09-17 23:20 | MR ---
EXAMINATION TYPE: MR knee LT wo con DATE OF EXAM: 09/17/2017 COMPARISON: NONE HISTORY: Lt knee pain x 2 mos TECHNIQUE: Multiplanar, multisequence imaging of the left knee is performed without IV contrast. FINDINGS: The anterior and posterior cruciate ligaments appear intact. The collateral ligaments appear intact. There is a mild knee joint effusion. The medial and lateral menisci appear intact. There is no eviden ce of meniscal tear. I see no bony destructive process. There is no evidence of a fracture. There is mild subcutaneous edema anterior to the knee. IMPRESSION: Subcutaneous edema is seen anteriorly. Knee joint effusion. No fracture. No evidence of meniscal or l igamentous tear.
== END | disposition home or self-care (01) ==
LOC: RADMRIMAIN 17:43
PROVIDERS: ATTEND Family Medicine
DX: M25.462 Effusion, left knee (principal)

== ENCOUNTER 2018-06-29 03:21 | Emergency (ER) | payer OTHER ==
[2018-06-29] MEDS: SODIUM CHLORIDE 0.9% 500 ML 500 ML IV STA (03:51)
[2018-06-29 03:52] LABS: Basophils # (A) 0.1 k/uL (0-0.2); Basophils % (A) 1 %; Eosinophils # (A) 0.4 k/uL (0-0.7); Eosinophils % (A) 2 %; HCT 47.6 % (39.0-53.0); HGB 15.6 gm/dL (13.0-17.5); Lymphocytes # (A) 3.1 k/uL (1.0-4.8); Lymphocytes % (A) 21 %; MCHC 32.7 g/dL (31.0-37.0); MCV 79.4 fL (80.0-100.0); Mean Platelet Volume 7.4; Monocytes # (A) 0.6 k/uL (0-1.0); Monocytes % (A) 4 %; Neutrophils # (A) 10.2 k/uL (1.3-7.7); Neutrophils % (A) 70 %; Platelet Count 404 k/uL (150-450); RDW 14.5 % (11.5-15.5); WBC 14.6 k/uL (3.8-10.6)
[2018-06-29] MEDS: ASPIRIN 81 MG PO STA (03:52)
[2018-06-29] MEDS: LORazepam 2 MG/ML INJ IV STA (03:53)
[2018-06-29 04:03] LABS: ALT 36 U/L (21-72); AST 25 U/L (17-59); Albumin 4.4 g/dL (3.5-5.0); Alkaline Phosphatase 101 U/L (38-126); Amylase 55 U/L (30-110); Anion Gap 12 mmol/L; Blood Urea Nitrogen 20 mg/dL (9-20); Calcium 9.7 mg/dL (8.4-10.2); Carbon Dioxide 24 mmol/L (22-30); Chloride 105 mmol/L (98-107); Glucose 120 mg/dL (74-99); Lipase 109 U/L (23-300); Magnesium 1.9 mg/dL (1.6-2.3); Potassium 4.2 mmol/L (3.5-5.1); Sodium 141 mmol/L (137-145); Total Bilirubin 0.7 mg/dL (0.2-1.3); Total Protein 8.1 g/dL (6.3-8.2)
[2018-06-29 04:09] LABS: Creatine Kinase 141 U/L (55-170)
--- NOTE | 2018-06-29 04:15 | XR ---
EXAMINATION TYPE: XR chest 2V DATE OF EXAM: 06/29/2018 COMPARISON: 04/16/2017 HISTORY: Chest pain TECHNIQUE: Frontal and lateral views of the chest are obtained. FINDINGS: Heart and mediastinum are normal. Lungs are clear. Diaphragm is normal. There are chest le ads. Bony thorax appears normal. IMPRESSION: Normal chest. No change.
[2018-06-29 04:17] LABS: D-Dimer <0.17 mg/L FEU (<0.60); Partial Thromboplastin Time 25.5 sec (22.0-30.0); Prothrombin Time 10.5 sec (9.0-12.0)
[2018-06-29 04:22] LABS: Creatine Kinase MB 0.5 ng/mL (0.0-2.4); Troponin I <0.012 ng/mL (0.000-0.034)
[2018-06-29 06:12] LABS: Appearance,Urine Clear (Clear); Bilirubin,Urine Negative (Negative); Blood,Urine Negative (Negative); Color,Urine Yellow; Glucose,Urine (UA) Negative (Negative); Ketones,Urine Negative (Negative); Leukocyte Esterase,Urine Small (Negative); Mucus,Urine Moderate /hpf; Nitrite,Urine Negative (Negative); Protein,Urine 1+ (Negative); RBC,Urine 2 /hpf (0-5); Specific Gravity,Urine 1.031 (1.001-1.035); Squamous Epithelial Cell,Urine 3 /hpf (0-4); WBC,Urine 9 /hpf (0-5)
[2018-06-29] MEDS: SODIUM CHLORIDE 0.9% 1,000 ML IV ONE (06:20)
--- NOTE | 2018-06-29 08:17 | ED ---
Chest Pain HPI - General Chief Complaint: Chest Pain Stated Complaint: chest pain Time Seen by Provider: 06/29/18 03:32 Source: patient Mode of arrival: ambulatory Limitations: no limitations - History of Present Illness MD Complaint: chest pain -: hour(s) Onset: during rest Pain Location: substernal Pain Radiation: LUE Severity: moderate Quality: tightness Consistency: constant Improves With: nothing Worsens With: nothing Other Symptoms: cough Treatments Prior to Arrival: none - Related Data Home Medications Medication Instructions Recorded Confirmed amLODIPine [Norvasc] 10 mg PO DAILY 02/04/16 06/29/18 Losartan/Hydrochlorothiazide 1 tab PO DAILY 01/18/17 06/29/18 [Losartan-Hctz 100-25 mg Tab] Cyclobenzaprine [Flexeril] 10 mg PO DAILY 06/29/18 06/29/18 metFORMIN HCL [Glucophage] 500 mg PO BID 06/29/18 06/29/18 Previous Rx's Medication Instructions Recorded predniSONE 20 mg PO BID #8 tab 06/29/18 Allergies Allergy/AdvReac Type Severity Reaction Status Date / Time erythromycin base Allergy Unknown Verified 06/29/18 08:02 Review of Systems ROS Statement: Those systems with pertinent positive or pertinent negative responses have been documented in the HPI. ROS Other: All systems not noted in ROS Statement are negative. Constitutional: Denies: fever, chills Respiratory: Reports: cough. Denies: dyspnea, wheezes, hemoptysis Cardiovascular: Reports: chest pain. Denies: palpitations, dyspnea on exertion , orthopnea, edema, syncope Gastrointestinal: Denies: abdominal pain, nausea, vomiting Genitourinary: Denies: dysuria, hematuria Musculoskeletal: Denies: back pain Skin: Denies: rash Neurological: Denies: headache, weakness, numbness Psychiatric: Reports: anxiety EKG Findings - EKG Results: EKG: interpreted by ERMD, sinus rhythm, normal axis, normal QRS, normal ST/T EKG shows: tachycardia Past Medical History Past Medical History: Diabetes Mellitus, Hyperlipidemia, Hypertension Additional Past Medical History / Comment(s): bilateral carpal tunnel, increased BMI, chronic low back pain History of Any Multi-Drug Resistant Organisms: None Reported Past Surgical History: No Surgical Hx Reported Past Psychological History: Anxiety, Depression Smoking Status: Never smoker General Exam Limitations: no limitations General appearance: alert, in no apparent distress Head exam: Present: atraumatic, normocephalic Eye exam: Present: normal appearance. Absent: scleral icterus, conjunctival injection Neck exam: Present: normal inspection Respiratory exam: Present: normal lung sounds bilaterally. Absent: respiratory distress, wheezes, rales, rhonchi, stridor, accessory muscle use, decreased breath sounds, prolonged expiratory Cardiovascular Exam: Present: normal rhythm, tachycardia, normal heart sounds. Absent: systolic murmur, diastolic murmur, rubs, gallop GI/Abdominal exam: Present: soft. Absent: distended, tenderness, guarding, rebound, rigid Extremities exam: Present: normal inspection, normal capillary refill. Absent: pedal edema, calf tenderness Back exam: Present: normal inspection. Absent: CVA tenderness (R), CVA tenderness (L) Neurological exam: Present: alert Skin exam: Present: warm, dry, intact, normal color. Absent: rash Course Vital Signs 06/29/18 06/29/18 06/29/18 03:32 04:20 05:58 Temperature 98.4 F Pulse Rate 110 H 114 H 120 H Respiratory 18 16 16 Rate Blood Pressure 151/134 128/84 135/100 O2 Sat by Pulse 92 L 97 95 Oximetry 06/29/18 06/29/18 06:49 08:34 Temperature 98.9 F Pulse Rate 112 H 114 H Respiratory 16 18 Rate Blood Pressure 137/100 129/99 O2 Sat by Pulse 95 97 Oximetry Chest Pain MDM - [facility] Patient's 33-year-old man with chest pain. He did have a little bit of cough as well. The patient's initial ECG showing some sinus tachycardia. He did have subsequent ECG with no interval change other than the rate is starting to normalize. His workup negative, including d-dimer and troponin. The patient's symptoms had resolved. He is feeling well and would like to go home. I did discuss given his underlying risk factors would like to see him follow for stress test. Discussed that should any symptoms recur or any new symptoms develop he must return immediately to the emergency department. Disposition Clinical Impression: Bronchitis Disposition: HOME SELF-CARE Condition: Good Instructions (If sedation given, give patient instructions): Acute Bronchitis ( ED) Prescriptions: predniSONE 20 mg PO BID #8 tab Is patient prescribed a controlled substance at d/c from ED?: No Referrals: None,Stated [Primary Care Provider] - 1-2 days
[2018-06-29] MEDS: predniSONE 20 MG TAB PO STA (08:31)
[2018-06-29 08:36] VITALS: BP 129/99; PULSE 114; RESP 18; TEMP 98.9
== END 2018-06-29 08:36 | disposition home or self-care (01) ==
LOC: EC 03:21
DX: J40 Bronchitis, not specified as acute or chronic (principal); R00.0 Tachycardia, unspecified; E11.9 Type 2 diabetes mellitus without complications; I10 Essential (primary) hypertension; Z79.84 Long term (current) use of oral hypoglycemic drugs; Z79.899 Other long term (current) drug therapy; Z88.1 Allergy status to other antibiotic agents
CPT/HCPCS: 36415; 93005; 85379; 80053; 82150; 82550; 82553; 83690; 83735; 84484; 85025; 85610; 85730; 81001; 87502; 71046; 99285; 96374; 96361; J2060; J7512

== ENCOUNTER → 2018-09-03 | Outpatient (CLI) | payer OTHER ==
--- NOTE | 2018-09-03 22:17 | CONS ---
CONSULTATION This is a 33-year-old, male patient who is presenting with excessive hypersomnia and sleepiness. The who sleeps next time is very much concerned about sleep apnea as the patient has loud snoring. He quits breathing on multiple occasions throughout the night. The patient has an unusual home living situation. Currently he and his and his 1-year-old child have been living in the basement out of his grandparents house. They do not have a bed and they have been sleeping on a couch. The patient himself has a very irregular sleep schedule. He goes to bed at various times. Wakes up at various times. Takes naps during the day. As such, his sleep schedule is very much irregular. He cannot get himself comfortable on the couch. He tosses and turns and sometimes he sleeps on the couch. Other times sleeps on the floor. This has obviously affected his sleep quality in general. In addition, he snores and stops breathing. He wakes up choking and gasping for air and wakes up with dry mouth and he has difficulty with memory, concentration and tiredness and sleepiness during the day. For that reason, he is coming in for further advice. PAST MEDICAL HISTORY: 1. Hypertension. 2. Diabetes mellitus. 3. Anxiety. 4. History of sinus tachycardia. 5. Degenerative arthritis. 6. Obesity. PAST SURGICAL HISTORY: Not known. DRUG ALLERGIES: Not known. OUTPATIENT MEDICATION LIST: Includes Naprosyn 500 mg p.o. twice a day, amlodipine 10 mg p.o. daily, Metformin 500 mg p.o. twice a day, losartan 100/25, 1 tablet a day, Xanax 2 mg 3 times a day. Metoprolol 25 mg twice a day and benazepril 10 mg p.o. twice a day. SOCIAL HISTORY: The patient is a nonsmoker. No history of alcohol. No history of IV drugs. FAMILY HISTORY: Aunt has diabetes mellitus. Grandfather of complications of lung cancer. Grandmother had diabetes mellitus. Mother is fine and father's history is not known. REVIEW OF SYSTEMS: Fourteen-point review of system was done. The patient prefers to sleep on his side. He snores loudly. Quits breathing. No restlessness in lower extremities. No grinding of the teeth. He has had previous history of anxiety and palpitations tachycardia. No heartburn at nighttime no chest pain. No angina. No sleep paralysis. No hallucinations. No reported history of cataplexy. He has got significant amount of weight. Over the past 10 years, the patient has gained at least 220 pounds and currently is up to 400 pounds. He wakes up constantly in the middle of the night. He takes naps during the day if he has the chance to do so. He does not fall asleep while driving his car. No history of depression. No history of claustrophobia. PHYSICAL EXAMINATION: BP is 136/81, pulse 106, respirations 16, temperature 98.3. Saturation 96% on room air. Height is 5 feet 11 inches, weight is 423. BMI is 58.9. Neck size is 19 inches. General appearance: Obese, calm, comfortable in no acute distress. Head is atraumatic, normocephalic. Neck is short, supple. Mallampati class 3. There is no goiter or neck masses. LUNGS: Clear to auscultation. HEART: Sounds regular rate and rhythm. Normal S1, S2. No S3, S4. No murmurs. ABDOMEN: Soft, nontender. Obese. Organs cannot be completely palpated. Extremities: Trace edema. There is no cyanosis or clubbing. NEUROLOGIC: Alert and oriented x3. No focal neurological deficits. PSYCHIATRIC: Positive for anxiety. No depression. Skin is negative for any wounds or ulceration. IMPRESSION: 1. Obstructive sleep apnea with high clinical suspicion, currently under investigation. 2. Poor sleep hygiene measures. 3. Obesity with a BMI 58.9. 4. Loud snoring. 5. Witnessed apneas. 6. Chronic anxiety. 7. History of sinus tachycardia. 8. Diabetes. 9. Hypertension. 10.Degenerative arthritis. PLAN: 1. Encourage weight loss. 2. Recommend regulating sleep schedule. 3. I would like to invest in a bed that would improve the sleep quality in general. 4. Sleep in a sidewise body position. 5. Continue antihypertensive medication. 6. Continue Xanax for anxiety. 7. Proceed with a screening polysomnogram and treat any significant obstructive sleep apnea if identified. MMODL / IJN: [id number] /
== END | disposition home or self-care (01) ==
LOC: SLEEP 14:04
PROVIDERS: ATTEND Internal Medicine Critical Care Medicine
DX: R06.83 Snoring (principal); E66.9 Obesity, unspecified; F41.9 Anxiety disorder, unspecified; E11.9 Type 2 diabetes mellitus without complications; I10 Essential (primary) hypertension; M19.90 Unspecified osteoarthritis, unspecified site; R00.0 Tachycardia, unspecified; Z79.84 Long term (current) use of oral hypoglycemic drugs; Z79.899 Other long term (current) drug therapy; Z72.821 Inadequate sleep hygiene; Z68.43 Body mass index [BMI] 50.0-59.9, adult
CPT/HCPCS: 99211

== ENCOUNTER → 2018-10-14 | Outpatient (CLI) | payer OTHER ==
[2018-10-14 19:13] LABS: T4, Free (Free Thyroxine) 1.3 ng/dL (0.80-1.80)
== END | disposition home or self-care (01) ==
LOC: LABWHC1 12:26
PROVIDERS: ATTEND Internal Medicine Interventional Cardiology
DX: E03.9 Hypothyroidism, unspecified (principal)
CPT/HCPCS: 36415; 84439; 84443; 84481

== ENCOUNTER → 2019-05-14 | Outpatient (CLI) | payer OTHER ==
--- NOTE | 2019-05-14 14:21 | XR ---
EXAMINATION TYPE: XR chest 2V DATE OF EXAM: 05/14/2019 COMPARISON: Chest x-ray June 29, 2018 HISTORY: Cough congestion and shortness of breath. TECHNIQUE: Frontal and lateral views of the chest are obtained. FINDINGS: There is no focal air space opacity, pleural effusion, or pneumothorax seen. The cardiac silhouette size remains enlarged. The osseous structures are intact. IMPRESSION: Cardiomegaly without acute pulmonary process. No significant change from prior.
[2019-05-14 14:24] LABS: Basophils # (A) 0.1 k/uL (0-0.2); Basophils % (A) 1 %; Eosinophils # (A) 0.4 k/uL (0-0.7); Eosinophils % (A) 4 %; HCT 48.7 % (39.0-53.0); HGB 15.4 gm/dL (13.0-17.5); Hypochromasia Slight; Lymphocytes % (A) 17 %; MCHC 31.6 g/dL (31.0-37.0); MCV 79.1 fL (80.0-100.0); Mean Platelet Volume 8.7; Monocytes # (A) 0.6 k/uL (0-1.0); Monocytes % (A) 5 %; Neutrophils # (A) 8.8 k/uL (1.3-7.7); Neutrophils % (A) 73 %; Platelet Count 388 k/uL (150-450); RBC 6.15 m/uL (4.30-5.90); RDW 15.9 % (11.5-15.5); WBC 12.2 k/uL (3.8-10.6)
[2019-05-14 19:14] LABS: African American GFR (CKD) 100.3 (60.0-200.0); Albumin 4.5 g/dL (3.80-4.90); Albumin/Globulin Ratio 1.88 (1.60-3.17); Anion Gap 11.2 mmol/L (4.00-12.00); BUN/Creat Ratio 17.27 Ratio (12.00-20.00); Calcium 9.5 mg/dL (8.7-10.3); Carbon Dioxide 22.8 mmol/L (21.6-31.8); Chol/HDL Ratio 6.9; Globulin 2.4 g/dL (1.6-3.3); LDL Cholesterol,Calculated 157.8 mg/dL (0.0-131.0); Non-African American GFR(CKD) 86.5 (60.0-200.0); Potassium 4.1 mmol/L (3.5-5.5); Total Bilirubin 0.5 mg/dL (0.3-1.2); Total Protein 6.9 g/dL (6.2-8.2); VLDL Calculation 25.2 mg/dL (5.00-40.00)
[2019-05-14 20:30] LABS: Hemoglobin A1C 7.4 % (4.0-6.0)
== END | disposition home or self-care (01) ==
LOC: LABWHC1 13:47
PROVIDERS: ATTEND Family Medicine
DX: I51.7 Cardiomegaly (principal); E11.9 Type 2 diabetes mellitus without complications
CPT/HCPCS: 36415; 71046; 80053; 80061; 82043; 82570; 83036; 85025

== ENCOUNTER → 2019-05-22 | Outpatient (CLI) | payer OTHER | END | disposition home or self-care (01) | LOC: LABWHC1 16:13 | PROVIDERS: ATTEND Nurse Practitioner Adult Health | DX: R06.02 Shortness of breath (principal); R60.1 Generalized edema | CPT/HCPCS: 36415; 83880 ==

== ENCOUNTER 2019-08-06 | Observation (INO) | payer OTHER | END 2019-08-06 15:44 | disposition left against medical advice (07) | PROVIDERS: ADMIT Family Medicine | CPT/HCPCS: 99285; 36415; 93005; 85379; 83880; 80053; 83735; 84484; 85025; 85610; 85730; 71046; G0378 ==

== ENCOUNTER 2019-08-17 12:08 | Emergency (ER) | payer OTHER ==
[2019-08-17 12:14] VITALS: BP 135/91; PULSE 117; RESP 18; TEMP 98.3
--- NOTE | 2019-08-17 12:54 | ED ---
General Adult HPI - General Chief complaint: Shortness of Breath Stated complaint: cough, SOB Time Seen by Provider: 08/17/19 12:23 Source: patient, RN notes reviewed, old records reviewed Mode of arrival: ambulatory - History of Present Illness Initial comments: 34-year-old male presents for evaluation of cough and dyspnea. Patient was seen by his primary care physician on telemedicine screening and prescribed an antibiotic yesterday. He has history of asthma. His symptoms have worsened over the past several days. He was evaluated in the emergency department approximately 11 days ago with similar symptoms. He denies 7 onset of his symptoms. Denies chest pain. He had had some chest pain 11 days ago but has not had this since that time. No fever. No URI symptoms. Cough is nonproductive. He believes this may be related to sleep apnea he does currently wear CPAP machine. - Related Data Home Medications Medication Instructions Recorded Confirmed amLODIPine [Norvasc] 10 mg PO DAILY 02/04/16 08/06/19 Cyclobenzaprine [Flexeril] 10 mg PO BID 06/29/18 08/06/19 metFORMIN HCL [Glucophage] 500 mg PO BID 06/29/18 08/06/19 ALPRAZolam [Xanax] 2 mg PO TID PRN 08/06/19 08/06/19 ARIPiprazole [Abilify] 10 mg PO HS 08/06/19 08/06/19 Albuterol Inhaler [Ventolin Hfa 1 - 2 puff INHALATION RT-Q6H PRN 08/06/19 08/06/19 Inhaler] Atorvastatin [Lipitor] 40 mg PO HS 08/06/19 08/06/19 Furosemide [Lasix] 20 mg PO DAILY 08/06/19 08/06/19 Losartan Potassium 100 mg PO DAILY 08/06/19 08/06/19 Metoprolol Tartrate [Lopressor] 25 mg PO BID 08/06/19 08/06/19 Testosterone Cypionate 300 mg IM Q14D 08/06/19 08/06/19 [Depo-Testosterone] traZODone HCL [Desyrel] 100 mg PO HS 08/06/19 08/06/19 Previous Rx's Medication Instructions Recorded Albuterol Inhaler [Ventolin Hfa 1 - 2 puff INHALATION Q4HR PRN #1 08/17/19 Inhaler] inhaler predniSONE 50 mg PO DAILY #5 tab 08/17/19 Allergies Allergy/AdvReac Type Severity Reaction Status Date / Time erythromycin base Allergy Unknown Verified 08/17/19 12:14 Review of Systems ROS Statement: Those systems with pertinent positive or pertinent negative responses have been documented in the HPI. ROS Other: All systems not noted in ROS Statement are negative. Past Medical History Past Medical History: Asthma, Diabetes Mellitus, Hyperlipidemia, Hypertension, Osteoarthritis (OA), Pneumonia Additional Past Medical History / Comment(s): NIDDM type II, EZEQUIEL with Cpap use- pt has difficulty tolerating, L carpal tunnel syndrome, chronic low back pain, athrtitis bilateral hands, asthma as a child, bronchitis, LBBB, hiatal hernia at , antral polyp, hemorrhoids. History of Any Multi-Drug Resistant Organisms: None Reported Past Surgical History: No Surgical Hx Reported Additional Past Surgical History / Comment(s): EGD, colonoscopy Past Anesthesia/Blood Transfusion Reactions: No Reported Reaction Past Psychological History: Anxiety, Depression Smoking Status: Former smoker - Past Family History Father History Unknown: Yes Additional Family Medical History / Comment(s): Pt has never met his father. Mother Additional Family Medical History / Comment(s): Mother is a 2 ppd smoker. Pt does not know her medical hx. General Exam General appearance: alert, in no apparent distress, obese Head exam: Present: atraumatic, normocephalic Eye exam: Present: normal appearance, PERRL ENT exam: Present: normal exam, normal oropharynx Neck exam: Present: normal inspection. Absent: tenderness, meningismus Respiratory exam: Present: decreased breath sounds. Absent: respiratory distress Cardiovascular Exam: Present: regular rate, normal rhythm, other (Distant heart sounds) GI/Abdominal exam: Present: soft. Absent: distended, tenderness Extremities exam: Present: pedal edema (Bilateral trace edema) Neurological exam: Present: alert, oriented X3, CN II-XII intact. Absent: motor sensory deficit Psychiatric exam: Present: normal affect, normal mood Skin exam: Present: warm, dry, intact. Absent: cyanosis, diaphoretic Course Vital Signs 08/17/19 12:11 Temperature 98.3 F Pulse Rate 117 H Respiratory 18 Rate Blood Pressure 135/91 O2 Sat by Pulse 98 Oximetry Medical Decision Making - Medical Decision Making 34-year-old male presents for evaluation of cough and dyspnea. I had seen this patient proximally 11 days ago, admitted for further evaluation of dyspnea. At this time laboratory tests were performed patient had a negative d-dimer negative troponin. Chest x-ray which was showing cardiomegaly with no acute findings. Symptoms have persisted. Did discuss the possibility of workup today including EKG, chest x-ray, laboratory testings, d-dimer, troponin, and admission for echo as previously planned. The patient wishes to try medication for his cough and dyspnea. I did discuss the risks multiple pathologies in this patient with comorbidities, he wishes to be treated with oral medication and outpatient follow-up. I discussed weight loss at length with this patient. I gave strict return parameters. He does not want admission or further evaluation at this time. Disposition Clinical Impression: Dyspnea, Bronchitis Disposition: HOME SELF-CARE Condition: Fair Instructions (If sedation given, give patient instructions): Acute Bronchitis (ED) Prescriptions: predniSONE 50 mg PO DAILY #5 tab Albuterol Inhaler [Ventolin Hfa Inhaler] 1 - 2 puff INHALATION Q4HR PRN #1 inhaler PRN Reason: Shortness Of Breath Is patient prescribed a controlled substance at d/c from ED?: No Referrals: Rafiq Mendoza MD [Primary Care Provider] - 1-2 days Eugene Keene MD [STAFF PHYSICIAN] - 1-2 days Time of Disposition: 12:53
== END 2019-08-17 13:05 | disposition home or self-care (01) ==
LOC: EC 12:08
DX: J40 Bronchitis, not specified as acute or chronic (principal); E66.9 Obesity, unspecified; R00.9 Unspecified abnormalities of heart beat; R60.0 Localized edema; I11.9 Hypertensive heart disease without heart failure; E11.9 Type 2 diabetes mellitus without complications; E78.5 Hyperlipidemia, unspecified; G47.33 Obstructive sleep apnea (adult) (pediatric); F32.9 Major depressive disorder, single episode, unspecified; F41.9 Anxiety disorder, unspecified; Z87.891 Personal history of nicotine dependence; Z88.1 Allergy status to other antibiotic agents; Z79.84 Long term (current) use of oral hypoglycemic drugs; Z79.890 Hormone replacement therapy; Z79.899 Other long term (current) drug therapy; Z68.44 Body mass index [BMI] 60.0-69.9, adult; Z99.89 Dependence on other enabling machines and devices
CPT/HCPCS: 99285

== ENCOUNTER 2019-09-13 17:07 | Emergency (ER) | payer OTHER ==
[2019-09-13 17:14] VITALS: TEMP 98.8
[2019-09-13] MEDS ORDERED: DEXAMETHASONE 4 MG TAB PO STA (17:29)
--- NOTE | 2019-09-13 17:34 | ED ---
ENT HPI - General Source: patient Mode of arrival: wheelchair Limitations: no limitations <Philly Raymond - Last Filed: 09/13/19 19:54> <MeghnaSheela Saúl - Last Filed: 09/15/19 23:49> - General Chief complaint: ENT Stated complaint: trouble swallowing Time Seen by Provider: 09/13/19 17:15 - History of Present Illness Initial comments: 34yo male presenting for inflammation of the uvula, he states that his uvula has been swollen for the past 1.5 months. Patient states that sometimes he feels like he chokes on the uvula. Patient denies any significant increase acutely denies fevers or other associated symptoms. Patient states that he did at one time note white lesions on the uvula that have gone away. Patient is a DMII non insulin dependent. Denies history of thrust. Patient denies noting any plaques on the oral cavity/tongue. Patient was concerned when the symptoms persisted and presented to the ER today for further evaluation as he cannot get in with Dr. Mendoza his PCP due to Covid 19. On arrival patient is laughing and joking with significant other--there is no signs of respiratory distress. He appears nontoxic and swell. (Philly Raymond) - Related Data Home Medications Medication Instructions Recorded Confirmed amLODIPine [Norvasc] 10 mg PO DAILY 02/04/16 08/06/19 Cyclobenzaprine [Flexeril] 10 mg PO BID 06/29/18 08/06/19 metFORMIN HCL [Glucophage] 500 mg PO BID 06/29/18 08/06/19 ALPRAZolam [Xanax] 2 mg PO TID PRN 08/06/19 08/06/19 ARIPiprazole [Abilify] 10 mg PO HS 08/06/19 08/06/19 Albuterol Inhaler (Bulk) [Ventolin 1 - 2 puff INHALATION RT-Q6H PRN 08/06/19 08/06/19 Hfa Inhaler] Atorvastatin [Lipitor] 40 mg PO HS 08/06/19 08/06/19 Furosemide [Lasix] 20 mg PO DAILY 08/06/19 08/06/19 Losartan Potassium 100 mg PO DAILY 08/06/19 08/06/19 Metoprolol Tartrate [Lopressor] 25 mg PO BID 08/06/19 08/06/19 Testosterone Cypionate 300 mg IM Q14D 08/06/19 08/06/19 [Depo-Testosterone] traZODone HCL [Desyrel] 100 mg PO HS 08/06/19 08/06/19 Previous Rx's Medication Instructions Recorded Albuterol Inhaler (Bulk) [Ventolin 1 - 2 puff INHALATION Q4HR PRN #1 08/17/19 Hfa Inhaler (Bulk)] inhaler predniSONE 50 mg PO DAILY #5 tab 08/17/19 Allergies Allergy/AdvReac Type Severity Reaction Status Date / Time erythromycin base Allergy Unknown Verified 09/13/19 17:14 Review of Systems ROS Other: All systems not noted in ROS Statement are negative. <Philly Raymond - Last Filed: 09/13/19 19:54> ROS Other: All systems not noted in ROS Statement are negative. <Sheela Coffman - Last Filed: 09/15/19 23:49> ROS Statement: Those systems with pertinent positive or pertinent negative responses have been documented in the HPI. Past Medical History Past Medical History: Asthma, Diabetes Mellitus, Hyperlipidemia, Hypertension, Osteoarthritis (OA), Pneumonia Additional Past Medical History / Comment(s): NIDDM type II, EZEQUIEL with Cpap use- pt has difficulty tolerating, L carpal tunnel syndrome, chronic low back pain, athrtitis bilateral hands, asthma as a child, bronchitis, LBBB, hiatal hernia at , antral polyp, hemorrhoids, obesity History of Any Multi-Drug Resistant Organisms: None Reported Past Surgical History: No Surgical Hx Reported Additional Past Surgical History / Comment(s): EGD, colonoscopy Past Anesthesia/Blood Transfusion Reactions: No Reported Reaction Past Psychological History: Anxiety, Depression Smoking Status: Former smoker Past Alcohol Use History: None Reported Past Drug Use History: None Reported - Past Family History Father History Unknown: Yes Additional Family Medical History / Comment(s): Pt has never met his father. Mother Additional Family Medical History / Comment(s): Mother is a 2 ppd smoker. Pt does not know her medical hx. <Philly Raymond - Last Filed: 09/13/19 19:54> General Exam Limitations: no limitations <Philly Raymond - Last Filed: 09/13/19 19:54> - General Exam Comments Initial Comments: General: The patient is awake and alert, in no distress, and does not appear acutely ill. Eye: +3 mm pupils are equal, round and reactive to light, extra-ocular movements are intact. No nystagmus. There is normal conjunctiva bilaterally. No signs of icterus. Ears, nose, mouth and throat: There are moist mucous membranes and no oral lesions. Uvula midline with mild erythema and swelling. There is no evidence of peritonsillar abscess no exudates or plaques noted in the oropharynx or on the uvula. No evidence of airway extraction of tripoding no drooling patient tolerated secretions without difficulty no stridor. Neck: The neck is supple, there is no tenderness or JVD. Cardiovascular: There is a regular rate and rhythm. No murmur, rub or gallop is appreciated. Respiratory: Lungs are clear to auscultation, respirations are non-labored, breath sounds are equal. No wheezes, stridor, rales, or rhonchi. Musculoskeletal: Normal ROM, no tenderness. Strength 5/5. Sensation intact. Pulses equal bilaterally 2+. Neurological: A&O x 3. CN II-XII intact, There are no obvious motor or sensory deficits. Coordination appears grossly intact. Speech is normal. Skin: Skin is warm and dry and no rashes or lesions are noted. Psychiatric: Cooperative, appropriate mood & affect, normal judgment. (Philly Raymond) Course Vital Signs 09/13/19 09/13/19 17:12 18:26 Temperature 98.8 F Pulse Rate 118 H 98 Respiratory 20 16 Rate Blood Pressure 146/79 148/73 O2 Sat by Pulse 95 97 Oximetry Medical Decision Making <Philly Raymond - Last Filed: 09/13/19 19:54> <Sheela Coffman - Last Filed: 09/15/19 23:49> - Medical Decision Making 34-year-old male presenting for swelling of his uvula for over one month. Patient states that he notices the swelling mostly at night when lying flat fall using his CPAP. Patient denies any acute changes. Patient is very mild swelling of the uvula with some redness noted on physical examination. Mild uvulitis. No evidence of thrush tonsillar exudates heterophile and this rapid strep testing negative. Patient does not appear toxic nor and respiratory distress. Patient will be discharged with primary and ENT follow-up I did recommend patient return if symptoms are worsening to the emergency department and contact PCP tomorrow to schedule appointment for glucose as well as uvulitis. Patient given 1 dose decadron in the ER. Discharged appearing well agreeable to this care plan as well as discharge. (Philly Raymond) I was available for consultation in the emergency department. The history and physical exam were done by the midlevel provider. I was consulted for this patients care. I reviewed the case with the midlevel provider and based on their presentation of the patient, I agree with the assessment, medical decision making and plan of care as documented. Chart was dictated using [employer] dictation software. Attempts were made to correct any dictation errors however some typographical errors may persist. Patient was seen during a national state of emergency due to the Covid-19 pandemic. (Sheela Coffman) - Lab Data Lab Results 09/13/19 09/13/19 09/13/19 Range/Units 17:35 17:35 17:45 POC Glucose (mg/dL) 315 H (75-99) mg/dL POC Glu Junior Brand Manager ID Cindy Prieto Heterophile Antibody Negative (Negative) Group A Strep Rapid Negative (Negative) Disposition Is patient prescribed a controlled substance at d/c from ED?: No Time of Disposition: 18:03 <Philly Raymond - Last Filed: 09/13/19 19:54> <Sheela Coffman - Last Filed: 09/15/19 23:49> Clinical Impression: Uvulitis, Pharyngitis, Pain on swallowing Disposition: HOME SELF-CARE Condition: Good Instructions (If sedation given, give patient instructions): Uvulitis (ED) Additional Instructions: Please use medication as discussed. Please follow-up with family doctor in the next 2 days, f/u with ENT in the next week. Please return to emergency room if the symptoms increase or worsen or for any other concerns. Referrals: Rafiq Mendoza MD [Primary Care Provider] - 1-2 days Fidencio Gibbs DO [Doctor of Osteopathic Medicine] - 1-2 days
[2019-09-13 17:46] LABS: Glucose,Whole Blood 315 mg/dL (75-99)
[2019-09-13] MEDS ORDERED: INSULIN REGULAR 100 UNIT/ML VIAL SQ ONE (18:10)
[2019-09-13 18:27] VITALS: BP 148/73; PULSE 98; RESP 16
== END 2019-09-13 18:27 | disposition home or self-care (01) ==
LOC: EC 17:07
DX: K12.2 Cellulitis and abscess of mouth (principal); J02.9 Acute pharyngitis, unspecified; J45.909 Unspecified asthma, uncomplicated; E11.9 Type 2 diabetes mellitus without complications; E78.5 Hyperlipidemia, unspecified; I10 Essential (primary) hypertension; F41.9 Anxiety disorder, unspecified; F32.9 Major depressive disorder, single episode, unspecified; G47.33 Obstructive sleep apnea (adult) (pediatric); Z99.89 Dependence on other enabling machines and devices; E66.9 Obesity, unspecified; Z68.44 Body mass index [BMI] 60.0-69.9, adult; Z87.891 Personal history of nicotine dependence; Z79.84 Long term (current) use of oral hypoglycemic drugs; Z79.890 Hormone replacement therapy; Z79.899 Other long term (current) drug therapy; Z88.1 Allergy status to other antibiotic agents
CPT/HCPCS: 36415; 86308; 87081; 87430; 99284; J8540

== ENCOUNTER 2019-11-21 19:38 | Emergency (ER) | payer OTHER ==
--- NOTE | 2019-11-21 20:02 | ED ---
General Adult HPI - General Chief complaint: Shortness of Breath Stated complaint: STEVE WALSH Time Seen by Provider: 11/21/19 19:52 Source: patient Mode of arrival: ambulatory Limitations: no limitations - History of Present Illness Initial comments: Dictation was produced using [employer] dictation software. please excuse any grammatical, word or spelling errors. This patient was cared for during a federal and state declared state of emergency secondary to Covid 19 Chief Complaint: 34-year-old male past medical history of sleep apnea, diabetes, dyslipidemia hypertension presents with dyspnea History of Present Illness: 34-year-old male used morbidly obese. Over the last several days she's been having worsening shortness of breath. Patient has a history of sleep apnea. He states that he's been using his CPAP as prescribed. 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 He states that his PCP has been increasing his Lasix to remove some of the water from his legs. Patient denies any known history of heart failure. Denies any pain complaints at this time. Denies any calf tenderness popliteal tenderness or proximal medial thigh tenderness. Patient denies any history of pulmonary embolus. No recent travel. Patient has had no known exposure to anyone with coronavirus or cold 19-type symptoms The ROS documented in this emergency department record has been reviewed and confirmed by me. Those systems with pertinent positive or negative responses have been documented in the HPI. All other systems are other negative and/or noncontributory. PHYSICAL EXAM: General Impression: Alert and oriented x3, tachypneic, obese HEENT: Normocephalic atraumatic, extra-ocular movements intact, pupils equal and reactive to light bilaterally, mucous membranes moist. Cardiovascular: Heart regular rate and rhythm Chest: Able to complete full sentences, no retractions, no tachypnea Abdomen: abdomen soft, non-tender, non-distended, no organomegaly Musculoskeletal: Pulses present and equal in all extremities, no peripheral e raad Motor: no focal deficits noted Neurological: CN II-XII grossly intact, no focal motor or sensory deficits noted Skin: Intact with no visualized rashes Psych: Anxious ED course: 34-year-old male presents with worsening dyspnea signs upon arrival shows heart rate of 116, respiratory of 40 cumbersome vital signs within acceptable limits. Drug use performed. It appears that patient had a sleep study performed in September of last year. According to environmental epidemiologist no patient has a history of sinus tachycardia, anxiety. He had an echocardiogram performed 04/17/2017 showing no obvious findings however was a suboptimal study. Chest x-ray obtained shows no acute processes except for some slight increased markings. 2 on exam. Laboratory evaluation obtained. Mild leukocytosis of 13.9. Patient has baseline elevated leukocytosis. There is also. Be some macrocytosis. Coag panel unremarkable. D-dimer is negative. Venous blood gas. Patient did have a mild lactic acidosis. It's unclear of this lab significance however patient does appear well. Patient appeared slightly anxious upon ar rival. Upon reevaluation isn't appears anxious. Feels well. Patient observed in the emergency department for couple hours. He is reevaluated after a short ER observation and feels want to go home. Patient advised to follow-up with his environmental epidemiologist and to use his sleep apnea devices as prescribed. Patient agreeable with disposition. Pending coronavirus testing. EKG interpretation: Ventricular rate 170, sinus tachycardia,. 194, QRS 106, QTC 426. No MO prolongation, no QTC prolongation, no ST or T-wave changes noted. EKG compared to 08/06/2019 showing no changes. Overall, this EKG is unremarkable - Related Data Home Medications Medication Instructions Recorded Confirmed amLODIPine [Norvasc] 10 mg PO DAILY 02/04/16 08/06/19 Cyclobenzaprine [Flexeril] 10 mg PO BID 06/29/18 08/06/19 metFORMIN HCL [Glucophage] 500 mg PO BID 06/29/18 08/06/19 ALPRAZolam [Xanax] 2 mg PO TID PRN 08/06/19 08/06/19 ARIPiprazole [Abilify] 10 mg PO HS 08/06/19 08/06/19 Albuterol Inhaler (Mhu) [Ventolin 1 - 2 puff INHALATION RT-Q6H PRN 08/06/19 08/06/19 Hfa Inhaler] Atorvastatin [Lipitor] 40 mg PO HS 08/06/19 08/06/19 Furosemide [Lasix] 20 mg PO DAILY 08/06/19 08/06/19 Losartan Potassium 100 mg PO DAILY 08/06/19 08/06/19 Metoprolol Tartrate [Lopressor] 25 mg PO BID 08/06/19 08/06/19 Testosterone Cypionate 300 mg IM Q14D 08/06/19 08/06/19 [Depo-Testosterone] traZODone HCL [Desyrel] 100 mg PO HS 08/06/19 08/06/19 Previous Rx's Medication Instructions Recorded Albuterol Inhaler (Mhu) [Ventolin 1 - 2 puff INHALATION Q4HR PRN #1 08/17/19 Hfa Inhaler (Mhu)] inhaler predniSONE 50 mg PO DAILY #5 tab 08/17/19 Allergies Allergy/AdvReac Type Severity Reaction Status Date / Time erythromycin base Allergy Unknown Verified 11/21/19 19:48 Review of Systems ROS Statement: Those systems with pertinent positive or pertinent negative responses have been documented in the HPI. ROS Other: All systems not noted in ROS Statement are negative. Past Medical History Past Medical History: Asthma, Diabetes Mellitus, Hyperlipidemia, Hypertension, O steoarthritis (OA), Pneumonia Additional Past Medical History / Comment(s): NIDDM type II, EZEQUIEL with Cpap use- pt has difficulty tolerating, L carpal tunnel syndrome, chronic low back pain, athrtitis bilateral hands, asthma as a child, bronchitis, LBBB, hiatal hernia at , antral polyp, hemorrhoids, obesity History of Any Multi-Drug Resistant Organisms: None Reported Past Surgical History: No Surgical Hx Reported Additional Past Surgical History / Comment(s): EGD, colonoscopy Past Anesthesia/Blood Transfusion Reactions: No Reported Reaction Past Psychological History: Anxiety, Depression Smoking Status: Former smoker Past Alcohol Use History: None Reported Past Drug Use History: None Reported - Past Family History Father History Unknown: Yes Additional Family Medical History / Comment(s): Pt has never met his father. Mother Additional Family Medical History / Comment(s): Mother is a 2 ppd smoker. Pt does not know her medical hx. General Exam Limitations: no limitations Course Vital Signs 11/21/19 19:44 Temperature 98.9 F Pulse Rate 116 H Respiratory 40 H Rate Blood Pressure 119/81 O2 Sat by Pulse 96 Oximetry Medical Decision Making - Lab Data Result diagrams: 11/21/19 20:39 11/21/19 20:39 Lab Results 11/21/19 11/21/19 11/21/19 Range/Units 20:39 20:39 20:39 WBC 13.9 H (3.8-10.6) k/uL RBC 6.36 H (4.30-5.90) m/uL Hgb 14.5 (13.0-17.5) gm/dL Hct 47.5 (39.0-53.0) % MCV 74.6 L (80.0-100.0) fL MCH 22.7 L (25.0-35.0) pg MCHC 30.5 L (31.0-37.0) g/dL RDW 16.8 H (11.5-15.5) % Plt Count 344 (150-450) k/uL Neutrophils % 73 % Lymphocytes % 17 % Monocytes % 3 % Eosinophils % 3 % Basophils % 1 % Neutrophils # 10.1 H (1.3-7.7) k/uL Lymphocytes # 2.4 (1.0-4.8) k/uL Monocytes # 0.4 (0-1.0) k/uL Eosinophils # 0.4 (0-0.7) k/uL Basophils # 0.2 (0-0.2) k/uL Hypochromasia Moderate Anisocytosis Slight Microcytosis Slight PT 9.9 (9.0-12.0) sec INR 0.9 (<1.2) APTT 22.1 (22.0-30.0) sec D-Dimer <0.17 (<0.60) mg/L FEU VBG pH (7.31-7.41) VBG pCO2 (37-51) mmHg VBG HCO3 (24-28) mmol/L Sodium 140 (137-145) mmol/L Potassium 4.2 (3.5-5.1) mmol/L Chloride 104 (98-107) mmol/L Carbon Dioxide 24 (22-30) mmol/L Anion Gap 12 mmol/L BUN 11 (9-20) mg/dL Creatinine 0.87 (0.66-1.25) mg/dL Est GFR (CKD-EPI)AfAm >90 (>60 ml/min/1.73 sqM) Est GFR (CKD-EPI)NonAf >90 (>60 ml/min/1.73 sqM) Glucose 328 H (74-99) mg/dL Plasma Lactic Acid Estevan (0.7-2.0) mmol/L Calcium 9.4 (8.4-10.2) mg/dL Magnesium 1.8 (1.6-2.3) mg/dL Total Bilirubin 0.6 (0.2-1.3) mg/dL AST 33 (17-59) U/L ALT 39 (4-49) U/L Alkaline Phosphatase 159 H (38-126) U/L Troponin I (0.000-0.034) ng/mL NT-Pro-B Natriuret Pep pg/mL Total Protein 7.3 (6.3-8.2) g/dL Albumin 3.9 (3.5-5.0) g/dL 11/21/19 11/21/19 11/21/19 Range/Units 20:39 20:39 20:39 WBC (3.8-10.6) k/uL RBC (4.30-5.90) m/uL Hgb (13.0-17.5) gm/dL Hct (39.0-53.0) % MCV (80.0-100.0) fL MCH (25.0-35.0) pg MCHC (31.0-37.0) g/dL RDW (11.5-15.5) % Plt Count (150-450) k/uL Neutrophils % % Lymphocytes % % Monocytes % % Eosinophils % % Basophils % % Neutrophils # (1.3-7.7) k/uL Lymphocytes # (1.0-4.8) k/uL Monocytes # (0-1.0) k/uL Eosinophils # (0-0.7) k/uL Basophils # (0-0.2) k/uL Hypochromasia Anisocytosis Microcytosis PT (9.0-12.0) sec INR (<1.2) APTT (22.0-30.0) sec D-Dimer (<0.60) mg/L FEU VBG pH (7.31-7.41) VBG pCO2 (37-51) mmHg VBG HCO3 (24-28) mmol/L Sodium (137-145) mmol/L Potassium (3.5-5.1) mmol/L Chloride (98-107) mmol/L Carbon Dioxide (22-30) mmol/L Anion Gap mmol/L BUN (9-20) mg/dL Creatinine (0.66-1.25) mg/dL Est GFR (CKD-EPI)AfAm (>60 ml/min/1.73 sqM) Est GFR (CKD-EPI)NonAf (>60 ml/min/1.73 sqM) Glucose (74-99) mg/dL Plasma Lactic Acid Estevan 2.4 H* (0.7-2.0) mmol/L Calcium (8.4-10.2) mg/dL Magnesium (1.6-2.3) mg/dL Total Bilirubin (0.2-1.3) mg/dL AST (17-59) U/L ALT (4-49) U/L Alkaline Phosphatase (38-126) U/L Troponin I <0.012 (0.000-0.034) ng/mL NT-Pro-B Natriuret Pep 23 pg/mL Total Protein (6.3-8.2) g/dL Albumin (3.5-5.0) g/dL 11/21/19 Range/Units 20:39 WBC (3.8-10.6) k/uL RBC (4.30-5.90) m/uL Hgb (13.0-17.5) gm/dL Hct (39.0-53.0) % MCV (80.0-100.0) fL MCH (25.0-35.0) pg MCHC (31.0-37.0) g/dL RDW (11.5-15.5) % Plt Count (150-450) k/uL Neutrophils % % Lymphocytes % % Monocytes % % Eosinophils % % Basophils % % Neutrophils # (1.3-7.7) k/uL Lymphocytes # (1.0-4.8) k/uL Monocytes # (0-1.0) k/uL Eosinophils # (0-0.7) k/uL Basophils # (0-0.2) k/uL Hypochromasia Anisocytosis Microcytosis PT (9.0-12.0) sec INR (<1.2) APTT (22.0-30.0) sec D-Dimer (<0.60) mg/L FEU VBG pH 7.42 H (7.31-7.41) VBG pCO2 42 (37-51) mmHg VBG HCO3 26 (24-28) mmol/L Sodium (137-145) mmol/L Potassium (3.5-5.1) mmol/L Chloride (98-107) mmol/L Carbon Dioxide (22-30) mmol/L Anion Gap mmol/L BUN (9-20) mg/dL Creatinine (0.66-1.25) mg/dL Est GFR (CKD-EPI)AfAm (>60 ml/min/1.73 sqM) Est GFR (CKD-EPI)NonAf (>60 ml/min/1.73 sqM) Glucose (74-99) mg/dL Plasma Lactic Acid Estevan (0.7-2.0) mmol/L Calcium (8.4-10.2) mg/dL Magnesium (1.6-2.3) mg/dL Total Bilirubin (0.2-1.3) mg/dL AST (17-59) U/L ALT (4-49) U/L Alkaline Phosphatase (38-126) U/L Troponin I (0.000-0.034) ng/mL NT-Pro-B Natriuret Pep pg/mL Total Protein (6.3-8.2) g/dL Albumin (3.5-5.0) g/dL Disposition Clinical Impression: Dyspnea Disposition: HOME SELF-CARE Condition: Good Instructions (If sedation given, give patient instructions): Sleep Apnea (DC) Is patient prescribed a controlled substance at d/c from ED?: No Referrals: Rafiq Mendoza MD [Primary Care Provider] - 1-2 days Time of Disposition: 23:09
--- NOTE | 2019-11-21 20:24 | XR ---
EXAMINATION TYPE: XR chest 1V portable DATE OF EXAM: 11/21/2019 COMPARISON: 08/06/2019 HISTORY: Short of breath TECHNIQUE: FINDINGS: Heart and mediastinum are normal. There is no heart failure. There is slight coarsening of interstitial markings. There is no pleural effusion. There are no hilar masses. IMPRESSION: Slight increased markings compared to old exam. Normal heart.
[2019-11-21 21:02] LABS: Anisocytosis Slight; Basophils # (A) 0.2 k/uL (0-0.2); Basophils % (A) 1 %; Eosinophils # (A) 0.4 k/uL (0-0.7); Eosinophils % (A) 3 %; HCT 47.5 % (39.0-53.0); HGB 14.5 gm/dL (13.0-17.5); Hypochromasia Moderate; Lymphocytes # (A) 2.4 k/uL (1.0-4.8); Lymphocytes % (A) 17 %; MCH 22.7 pg (25.0-35.0); MCHC 30.5 g/dL (31.0-37.0); MCV 74.6 fL (80.0-100.0); Mean Platelet Volume 8.8; Microcytosis Slight; Monocytes # (A) 0.4 k/uL (0-1.0); Monocytes % (A) 3 %; Neutrophils # (A) 10.1 k/uL (1.3-7.7); Neutrophils % (A) 73 %; Platelet Count 344 k/uL (150-450); RBC 6.36 m/uL (4.30-5.90); RDW 16.8 % (11.5-15.5); WBC 13.9 k/uL (3.8-10.6)
[2019-11-21 21:12] LABS: ALT 39 U/L (4-49); AST 33 U/L (17-59); African American GFR (CKD) >90 (>60 ml/min/1.73 sqM); Albumin 3.9 g/dL (3.5-5.0); Alkaline Phosphatase 159 U/L (38-126); Anion Gap 12 mmol/L; Blood Urea Nitrogen 11 mg/dL (9-20); Calcium 9.4 mg/dL (8.4-10.2); Carbon Dioxide 24 mmol/L (22-30); Chloride 104 mmol/L (98-107); Glucose 328 mg/dL (74-99); Magnesium 1.8 mg/dL (1.6-2.3); Non-African American GFR(CKD) >90 (>60 ml/min/1.73 sqM); Potassium 4.2 mmol/L (3.5-5.1); Sodium 140 mmol/L (137-145); Total Bilirubin 0.6 mg/dL (0.2-1.3); Total Protein 7.3 g/dL (6.3-8.2)
[2019-11-21 21:23] LABS: D-Dimer <0.17 mg/L FEU (<0.60); INR 0.9 (<1.2); Partial Thromboplastin Time 22.1 sec (22.0-30.0); Prothrombin Time 9.9 sec (9.0-12.0)
[2019-11-21 21:32] LABS: VBG PH 7.42 (7.31-7.41)
[2019-11-21 23:37] VITALS: BP 158/98; PULSE 103; RESP 30; TEMP 99.2
== END 2019-11-21 23:16 | disposition home or self-care (01) ==
LOC: EC 19:38
DX: R06.02 Shortness of breath (principal); R00.0 Tachycardia, unspecified; D72.829 Elevated white blood cell count, unspecified; E87.2 Acidosis; E66.01 Morbid (severe) obesity due to excess calories; J45.909 Unspecified asthma, uncomplicated; E11.9 Type 2 diabetes mellitus without complications; E78.5 Hyperlipidemia, unspecified; I10 Essential (primary) hypertension; F41.9 Anxiety disorder, unspecified; F32.9 Major depressive disorder, single episode, unspecified; G47.33 Obstructive sleep apnea (adult) (pediatric); Z79.51 Long term (current) use of inhaled steroids; Z79.84 Long term (current) use of oral hypoglycemic drugs; Z79.899 Other long term (current) drug therapy; Z88.1 Allergy status to other antibiotic agents; Z99.89 Dependence on other enabling machines and devices; Z87.891 Personal history of nicotine dependence; Z68.44 Body mass index [BMI] 60.0-69.9, adult; Z20.828 Contact with and (suspected) exposure to other viral communicable diseases
CPT/HCPCS: 36415; 93005; 85379; 83880; 80053; 82803; 83605; 83735; 84484; 85025; 85610; 85730; 71045; 99285; U0003

== ENCOUNTER → 2020-04-28 | Outpatient (CLI) | payer OTHER ==
[2020-04-28 18:44] LABS: Hemoglobin A1C 10.6 % (4.0-6.0)
[2020-04-28 18:52] LABS: African American GFR (CKD) 111.7 (60.0-200.0); Albumin 4.2 g/dL (3.80-4.90); Albumin/Globulin Ratio 1.91 (1.60-3.17); Anion Gap 9.2 mmol/L (4.00-12.00); Carbon Dioxide 22.8 mmol/L (21.6-31.8); Chol/HDL Ratio 5.46; Globulin 2.2 g/dL (1.6-3.3); LDL Cholesterol,Calculated 77.8 mg/dL (0.0-131.0); Non-African American GFR(CKD) 96.4 (60.0-200.0); Potassium 4.2 mmol/L (3.5-5.5); Total Bilirubin 0.5 mg/dL (0.3-1.2); Total Protein 6.4 g/dL (6.2-8.2); VLDL Calculation 29.2 mg/dL (5.00-40.00)
== END | disposition home or self-care (01) ==
LOC: LABWHC1 11:24
PROVIDERS: ATTEND Nurse Practitioner Adult Health
DX: E78.2 Mixed hyperlipidemia (principal); E11.9 Type 2 diabetes mellitus without complications; I10 Essential (primary) hypertension
CPT/HCPCS: 36415; 80053; 80061; 83036

== ENCOUNTER 2020-05-31 13:49 | Inpatient (IN) | payer OTHER ==
[2020-05-31 15:32] LABS: ALT 31 U/L (4-49); AST 25 U/L (17-59); African American GFR (CKD) >90 (>60 ml/min/1.73 sqM); Albumin 4.2 g/dL (3.5-5.0); Alkaline Phosphatase 144 U/L (38-126); Anion Gap 12 mmol/L; Blood Urea Nitrogen 14 mg/dL (9-20); Calcium 9.6 mg/dL (8.4-10.2); Carbon Dioxide 23 mmol/L (22-30); Chloride 107 mmol/L (98-107); Glucose 150 mg/dL (74-99); Non-African American GFR(CKD) >90 (>60 ml/min/1.73 sqM); Potassium 4.6 mmol/L (3.5-5.1); Sodium 142 mmol/L (137-145); Total Bilirubin 0.7 mg/dL (0.2-1.3); Total Protein 7.6 g/dL (6.3-8.2)
[2020-05-31 15:37] LABS: Anisocytosis Slight; Basophils # (A) 0.1 k/uL (0-0.2); Basophils % (A) 1 %; Eosinophils # (A) 0.4 k/uL (0-0.7); Eosinophils % (A) 3 %; HCT 54.3 % (39.0-53.0); HGB 16.5 gm/dL (13.0-17.5); Hypochromasia Moderate; Lymphocytes # (A) 2.6 k/uL (1.0-4.8); Lymphocytes % (A) 18 %; MCH 22.3 pg (25.0-35.0); MCHC 30.4 g/dL (31.0-37.0); MCV 73.4 fL (80.0-100.0); Mean Platelet Volume 8.9; Microcytosis Moderate; Monocytes # (A) 0.6 k/uL (0-1.0); Monocytes % (A) 5 %; Neutrophils % (A) 72 %; Platelet Count 342 k/uL (150-450); RDW 17.7 % (11.5-15.5); WBC 13.9 k/uL (3.8-10.6)
--- NOTE | 2020-05-31 15:58 | ED ---
SOB HPI - General Chief Complaint: Shortness of Breath Stated Complaint: SOB Time Seen by Provider: 05/31/20 15:54 Source: patient Mode of arrival: ambulatory Limitations: no limitations - History of Present Illness Initial Comments: 35-year-old, morbidly obese with history of asthma presenting to the emergency department with chief complaint of shortness of breath, cough and congestion. Patient states he was sent to the ED from his primary care physician. Patient reports she has been having and number to call for the last few days. He states uses nebulized albuterol treatments at home. States he has also developed dyspnea on exertion with occasional chest pain without any radiation. He does report chills but no fevers. Denies any abdominal or back pain. He does report feeling slightly wheezy. Patient not a current smoker. - Related Data Home Medications Medication Instructions Recorded Confirmed amLODIPine [Norvasc] 10 mg PO DAILY 02/04/16 05/31/20 Cyclobenzaprine [Flexeril] 10 mg PO BID 06/29/18 05/31/20 ARIPiprazole [Abilify] 10 mg PO HS 08/06/19 05/31/20 Atorvastatin [Lipitor] 40 mg PO HS 08/06/19 05/31/20 Furosemide [Lasix] 20 mg PO DAILY PRN 08/06/19 05/31/20 Losartan Potassium 100 mg PO DAILY 08/06/19 05/31/20 Testosterone Cypionate 300 mg IM Q14D 08/06/19 05/31/20 [Depo-Testosterone] ALPRAZolam [Xanax] 1 mg PO BID PRN 05/31/20 05/31/20 ALPRAZolam [Xanax] 1 mg PO HS 05/31/20 05/31/20 Albuterol Sulfate [Proair Hfa] 1 - 2 puff INHALATION RT-Q4H PRN 05/31/20 Cefdinir 300 mg PO Q12H 05/31/20 05/31/20 Cholecalciferol [Vitamin D3 (25 2,000 unit PO DAILY 05/31/20 05/31/20 Mcg = 1000 Iu)] Metoprolol Tartrate [Lopressor] 50 mg PO BID 05/31/20 05/31/20 diphenhydrAMINE [Benadryl] 100 mg PO HS 05/31/20 05/31/20 metFORMIN HCL [Glucophage] 1,000 mg PO BID 05/31/20 05/31/20 traZODone HCL 150 mg PO HS 05/31/20 05/31/20 Allergies Allergy/AdvReac Type Severity Reaction Status Date / Time erythromycin base Allergy Unknown Verified 05/31/20 19:42 Review of Systems ROS Statement: Those systems with pertinent positive or pertinent negative responses have been documented in the HPI. ROS Other: All systems not noted in ROS Statement are negative. Past Medical History Past Medical History: Asthma, Diabetes Mellitus, Hyperlipidemia, Hypertension, Osteoarthritis (OA), Pneumonia Additional Past Medical History / Comment(s): NIDDM type II, EZEQUIEL with Cpap use- pt has difficulty tolerating, L carpal tunnel syndrome, chronic low back pain, athrtitis bilateral hands, asthma as a child, bronchitis, LBBB, hiatal hernia at , antral polyp, hemorrhoids, obesity History of Any Multi-Drug Resistant Organisms: None Reported Past Surgical History: No Surgical Hx Reported Additional Past Surgical History / Comment(s): EGD, colonoscopy Past Anesthesia/Blood Transfusion Reactions: No Reported Reaction Past Psychological History: Anxiety, Depression Smoking Status: Never smoker Past Alcohol Use History: None Reported Past Drug Use History: None Reported - Past Family History Father History Unknown: Yes Additional Family Medical History / Comment(s): Pt has never met his father. Mother Additional Family Medical History / Comment(s): Mother is a 2 ppd smoker. Pt does not know her medical hx. General Exam Limitations: no limitations General appearance: alert, in no apparent distress, obese Head exam: Present: atraumatic, normocephalic, normal inspection Eye exam: Present: normal appearance, PERRL, EOMI Pupils: Present: normal accommodation ENT exam: Present: normal exam, normal oropharynx, mucous membranes moist, TM's normal bilaterally, normal external ear exam Neck exam: Present: normal inspection, full ROM. Absent: tenderness Respiratory exam: Present: respiratory distress (tachypneic). Absent: wheezes, rales, rhonchi, stridor Cardiovascular Exam: Present: regular rate, normal rhythm, normal heart sounds GI/Abdominal exam: Present: soft. Absent: distended, tenderness, guarding Extremities exam: Present: normal inspection, full ROM, normal capillary refill. Absent: calf tenderness (No calf Tenderness bilaterally.), other Back exam: Present: normal inspection, full ROM. Absent: tenderness, CVA tenderness (R), CVA tenderness (L) Neurological exam: Present: alert, oriented X3, normal gait Psychiatric exam: Present: normal affect, normal mood Skin exam: Present: warm, dry, intact, normal color Course Vital Signs 05/31/20 05/31/20 05/31/20 13:58 17:12 18:04 Temperature 98.6 F 98.2 F Pulse Rate 110 H 115 H 120 H Respiratory 18 50 H 45 H Rate Blood Pressure 119/79 175/113 131/77 O2 Sat by Pulse 95 96 95 Oximetry 05/31/20 05/31/20 05/31/20 18:39 18:50 19:49 Temperature Pulse Rate 114 H 113 H 114 H Respiratory 47 H 45 H 35 H Rate Blood Pressure 141/120 150/101 151/100 O2 Sat by Pulse 97 99 98 Oximetry Procedures - [facility] Protocol (Time Out) Nurse: Bertha Prescott Medical Decision Making - Medical Decision Making 35-year-old male with history of asthma and is morbidly obese presenting to emergency Department with a chief complaint of shortness of breath. On initial evaluation, patient had an oxygen saturation of 95 and did not appear to be in any respiratory distress. No signs of wheezing on auscultation. Throughout the hospital stay, patient did become tachypneic and tachycardic. Patient was started on BiPAP. 125 mg of Solu-Medrol given. DuoNeb treatment given. CBC did reveal leukocytosis of 14 K. Initial troponin is negative. Chest x-ray reveals some cardiomegaly with no acute processes. CMP unremarkable. Coags within normal limits. Initial lactic acid was 2.2. Reflux was 1.6. Influenza coronavirus negative. CT angiogram of the chest reveals no signs of pulmonary embolism but there is bilateral posterior infiltrates with atelectasis. There is a concern for coronavirus. Rocephin. Patient also given some anxiolytics as the patient was getting anxious on the BiPAP. Dr. Wheatley personally evaluated the patient. Dr. Collazo also evaluated the patient and he will be admitted for further medical management. Admitting physician is Dr. Wheatley Pulmonology consulted - Lab Data Result diagrams: 05/31/20 15:07 05/31/20 15:07 Lab Results 0105/31/20 05/31/20 Range/Units 15:07 15:07 15:07 WBC 13.9 H (3.8-10.6) k/uL RBC 7.40 H (4.30-5.90) m/uL Hgb 16.5 (13.0-17.5) gm/dL Hct 54.3 H (39.0-53.0) % MCV 73.4 L (80.0-100.0) fL MCH 22.3 L (25.0-35.0) pg MCHC 30.4 L (31.0-37.0) g/dL RDW 17.7 H (11.5-15.5) % Plt Count 342 (150-450) k/uL MPV 8.9 Neutrophils % 72 % Lymphocytes % 18 % Monocytes % 5 % Eosinophils % 3 % Basophils % 1 % Neutrophils # 10.0 H (1.3-7.7) k/uL Lymphocytes # 2.6 (1.0-4.8) k/uL Monocytes # 0.6 (0-1.0) k/uL Eosinophils # 0.4 (0-0.7) k/uL Basophils # 0.1 (0-0.2) k/uL Hypochromasia Moderate Anisocytosis Slight Microcytosis Moderate PT (9.0-12.0) sec INR (<1.2) APTT (22.0-30.0) sec D-Dimer (<0.60) mg/L FEU Sodium 142 (137-145) mmol/L Potassium 4.6 (3.5-5.1) mmol/L Chloride 107 (98-107) mmol/L Carbon Dioxide 23 (22-30) mmol/L Anion Gap 12 mmol/L BUN 14 (9-20) mg/dL Creatinine 0.90 (0.66-1.25) mg/dL Est GFR (CKD-EPI)AfAm >90 (>60 ml/min/1.73 sqM) Est GFR (CKD-EPI)NonAf >90 (>60 ml/min/1.73 sqM) Glucose 150 H (74-99) mg/dL POC Glucose (mg/dL) (75-99) mg/dL POC Glu [employer] ID Lactic Ac Sepsis Rflx Plasma Lactic Acid Estevan 2.2 H* (0.7-2.0) mmol/L Calcium 9.6 (8.4-10.2) mg/dL Magnesium (1.6-2.3) mg/dL Total Bilirubin 0.7 (0.2-1.3) mg/dL AST 25 (17-59) U/L ALT 31 (4-49) U/L Alkaline Phosphatase 144 H (38-126) U/L Lactate Dehydrogenase (313-618) U/L Troponin I (0.000-0.034) ng/mL C-Reactive Protein (<10.0) mg/L Total Protein 7.6 (6.3-8.2) g/dL Albumin 4.2 (3.5-5.0) g/dL Coronavirus (PCR) (Not Detectd) Influenza Type A RNA (Not Detectd) Influenza Type B (PCR) (Not Detectd) 05/31/20 05/31/20 05/31/20 Range/Units 15:12 15:40 17:13 WBC (3.8-10.6) k/uL RBC (4.30-5.90) m/uL Hgb (13.0-17.5) gm/dL Hct (39.0-53.0) % MCV (80.0-100.0) fL MCH (25.0-35.0) pg MCHC (31.0-37.0) g/dL RDW (11.5-15.5) % Plt Count (150-450) k/uL MPV Neutrophils % % Lymphocytes % % Monocytes % % Eosinophils % % Basophils % % Neutrophils # (1.3-7.7) k/uL Lymphocytes # (1.0-4.8) k/uL Monocytes # (0-1.0) k/uL Eosinophils # (0-0.7) k/uL Basophils # (0-0.2) k/uL Hypochromasia Anisocytosis Microcytosis PT (9.0-12.0) sec INR (<1.2) APTT (22.0-30.0) sec D-Dimer (<0.60) mg/L FEU Sodium (137-145) mmol/L Potassium (3.5-5.1) mmol/L Chloride (98-107) mmol/L Carbon Dioxide (22-30) mmol/L Anion Gap mmol/L BUN (9-20) mg/dL Creatinine (0.66-1.25) mg/dL Est GFR (CKD-EPI)AfAm (>60 ml/min/1.73 sqM) Est GFR (CKD-EPI)NonAf (>60 ml/min/1.73 sqM) Glucose (74-99) mg/dL POC Glucose (mg/dL) (75-99) mg/dL POC Glu [employer] ID Lactic Ac Sepsis Rflx Y Plasma Lactic Acid [place]evan (0.7-2.0) mmol/L Calcium (8.4-10.2) mg/dL Magnesium (1.6-2.3) mg/dL Total Bilirubin (0.2-1.3) mg/dL AST (17-59) U/L ALT (4-49) U/L Alkaline Phosphatase (38-126) U/L Lactate Dehydrogenase (313-618) U/L Troponin I 0.015 (0.000-0.034) ng/mL C-Reactive Protein (<10.0) mg/L Total Protein (6.3-8.2) g/dL Albumin (3.5-5.0) g/dL Coronavirus (PCR) Not Detected (Not Detectd) Influenza Type A RNA (Not Detectd) Influenza Type B (PCR) (Not Detectd) 05/31/20 05/31/20 05/31/20 Range/Units 18:00 18:11 19:24 WBC (3.8-10.6) k/uL RBC (4.30-5.90) m/uL Hgb (13.0-17.5) gm/dL Hct (39.0-53.0) % MCV (80.0-100.0) fL MCH (25.0-35.0) pg MCHC (31.0-37.0) g/dL RDW (11.5-15.5) % Plt Count (150-450) k/uL MPV Neutrophils % % Lymphocytes % % Monocytes % % Eosinophils % % Basophils % % Neutrophils # (1.3-7.7) k/uL Lymphocytes # (1.0-4.8) k/uL Monocytes # (0-1.0) k/uL Eosinophils # (0-0.7) k/uL Basophils # (0-0.2) k/uL Hypochromasia Anisocytosis Microcytosis PT 10.5 (9.0-12.0) sec INR 1.0 (<1.2) APTT 24.3 (22.0-30.0) sec D-Dimer <0.17 (<0.60) mg/L FEU Sodium (137-145) mmol/L Potassium (3.5-5.1) mmol/L Chloride (98-107) mmol/L Carbon Dioxide (22-30) mmol/L Anion Gap mmol/L BUN (9-20) mg/dL Creatinine (0.66-1.25) mg/dL Est GFR (CKD-EPI)AfAm (>60 ml/min/1.73 sqM) Est GFR (CKD-EPI)NonAf (>60 ml/min/1.73 sqM) Glucose (74-99) mg/dL POC Glucose (mg/dL) (75-99) mg/dL POC Glu [employer] ID Lactic Ac Sepsis Rflx Plasma Lactic Acid [place]ev[place] 1.9 (0.7-2.0) mmol/L Calcium (8.4-10.2) mg/dL Magnesium (1.6-2.3) mg/dL Total Bilirubin (0.2-1.3) mg/dL AST (17-59) U/L ALT (4-49) U/L Alkaline Phosphatase (38-126) U/L Lactate Dehydrogenase (313-618) U/L Troponin I (0.000-0.034) ng/mL C-Reactive Protein (<10.0) mg/L Total Protein (6.3-8.2) g/dL Albumin (3.5-5.0) g/dL Coronavirus (PCR) (Not Detectd) Influenza Type A RNA (Not Detectd) Influenza Type B (PCR) (Not Detectd) 05/31/20 05/31/20 05/31/20 Range/Units 19:24 19:33 19:38 WBC (3.8-10.6) k/uL RBC (4.30-5.90) m/uL Hgb (13.0-17.5) gm/dL Hct (39.0-53.0) % MCV (80.0-100.0) fL MCH (25.0-35.0) pg MCHC (31.0-37.0) g/dL RDW (11.5-15.5) % Plt Count (150-450) k/uL MPV Neutrophils % % Lymphocytes % % Monocytes % % Eosinophils % % Basophils % % Neutrophils # (1.3-7.7) k/uL Lymphocytes # (1.0-4.8) k/uL Monocytes # (0-1.0) k/uL Eosinophils # (0-0.7) k/uL Basophils # (0-0.2) k/uL Hypochromasia Anisocytosis Microcytosis PT (9.0-12.0) sec INR (<1.2) APTT (22.0-30.0) sec D-Dimer (<0.60) mg/L FEU Sodium (137-145) mmol/L Potassium (3.5-5.1) mmol/L Chloride (98-107) mmol/L Carbon Dioxide (22-30) mmol/L Anion Gap mmol/L BUN (9-20) mg/dL Creatinine (0.66-1.25) mg/dL Est GFR (CKD-EPI)AfAm (>60 ml/min/1.73 sqM) Est GFR (CKD-EPI)NonAf (>60 ml/min/1.73 sqM) Glucose (74-99) mg/dL POC Glucose (mg/dL) 134 H (75-99) mg/dL POC Glu [employer] ID Radha Matt Lactic Ac Sepsis Rflx Plasma Lactic Acid [place] (0.7-2.0) mmol/L Calcium (8.4-10.2) mg/dL Magnesium 2.0 (1.6-2.3) mg/dL Total Bilirubin (0.2-1.3) mg/dL AST (17-59) U/L ALT (4-49) U/L Alkaline Phosphatase (38-126) U/L Lactate Dehydrogenase 564 (313-618) U/L Troponin I (0.000-0.034) ng/mL C-Reactive Protein 12.3 H (<10.0) mg/L Total Protein (6.3-8.2) g/dL Albumin (3.5-5.0) g/dL Coronavirus (PCR) (Not Detectd) Influenza Type A RNA Not Detected (Not Detectd) Influenza Type B (PCR) Not Detected (Not Detectd) Disposition Clinical Impression: Shortness of breath, Pneumonia Disposition: HOME SELF-CARE Condition: Fair Is patient prescribed a controlled substance at d/c from ED?: No Referrals: Rafiq Mendoza MD [Primary Care Provider] - 1-2 days Time of Disposition: 20:12
--- NOTE | 2020-05-31 16:26 | XR ---
EXAMINATION TYPE: XR chest 2V DATE OF EXAM: 05/31/2020 COMPARISON: Chest x-ray November 21, 2019 HISTORY: Cough. TECHNIQUE: Frontal and lateral views of the chest are obtained. FINDINGS: There is no suspicious peripheral focal air space opacity, pleural effusion, or pneumothor ax seen. Low lung volumes redemonstrated. The cardiac silhouette size is stable and enlarged. The o sseous structures are intact. IMPRESSION: Low lung volumes and cardiomegaly without new suspicious acute pulmonary process.
[2020-05-31] MEDS ORDERED: IPRATROPIUM-ALBUTEROL 3 ML NEB INHALATION STA (16:28)
[2020-05-31] MEDS ORDERED: hydrALAZINE HCL 20 MG/ML 1 ML VIAL IVP STA (17:17)
[2020-05-31] MEDS ORDERED: ALBUTEROL HFA INHALER INHALATION STA (17:46)
[2020-05-31] MEDS ORDERED: methylPREDNISolone SOD SUCCI 125 MG/2 ML VIAL IV STA (18:50)
[2020-05-31 19:35] LABS: Glucose,Whole Blood 134 mg/dL (75-99)
[2020-05-31 19:47] LABS: Partial Thromboplastin Time 24.3 sec (22.0-30.0); Prothrombin Time 10.5 sec (9.0-12.0)
--- NOTE | 2020-05-31 19:52 | CT ---
EXAMINATION TYPE: CT chest angio for PE DATE OF EXAM: 05/31/2020 COMPARISON: 04/17/2017 HISTORY: Dyspnea on exertion. CT DLP: 1015 mGycm Automated exposure control for dose reduction was used. CONTRAST: Performed with IV Contrast, patient injected with 100 mL of Isovue 370. There are 3-D post processed images. There is some linear infiltrate and atelectasis in both lower lobes posteriorly. There is no pleural effusion. There is no pericardial effusion. Heart appears slightly enlarged. There is no mediastinal adenopathy. There are no hilar masses. I see no evidence of filling defect in the pulmonary arteries. Exam is limited by the patient's size. Upper abdominal soft tissues appear intact. The bony thorax i s intact. Thoracic vertebra appear intact. There is no compression fracture. IMPRESSION: No evidence of pulmonary embolism. Bilateral lower lobe infiltrate and atelectasis appears new compar ed to old exam. Cardiomegaly increased compared to old exam.
[2020-05-31 20:01] LABS: C Reactive Protein 12.3 mg/L (<10.0)
[2020-05-31] MEDS ORDERED: FUROSEMIDE 20 MG TAB PO PRN (20:04)
[2020-05-31] MEDS ORDERED: HYDROcodone/APAP 5-325MG 1 EACH TAB PO PRN (20:06)
[2020-05-31] MEDS ORDERED: LORazepam 2 MG/ML INJ IV STA (20:06)
[2020-05-31] MEDS ORDERED: cefTRIAXone IN SWFI 1,000 MG/10 ML SYRINGE IVP STA (20:08)
[2020-05-31] MEDS ORDERED: AZITHROMYCIN 500 MG in SODIUM CHLORIDE 0.9% 250 ML IVPB STA (20:08)
[2020-05-31] MEDS ORDERED: LORazepam 2 MG/ML INJ IV PRN (20:09)
[2020-05-31] MEDS ORDERED: ACETAMINOPHEN TAB 325 MG TAB PO PRN (20:09)
[2020-05-31] MEDS ORDERED: NALOXONE 0.4 MG/ML 1 ML VIAL IV PRN (20:09)
[2020-05-31] MEDS ORDERED: HYDROmorphone 0.5 MG/0.5 ML SYRINGE IVP PRN (20:09)
[2020-05-31] MEDS ORDERED: MORPHINE SULFATE 4 MG/ML SYRINGE IV PRN (20:09)
[2020-05-31 20:35] LABS: Glucose,Whole Blood 158 mg/dL (75-99)
[2020-05-31] MEDS: ATORVASTATIN 40 MG TAB PO SCH (21:06)
[2020-05-31] MEDS: metFORMIN 500 MG TAB PO SCH (21:06)
[2020-05-31] MEDS: CYCLOBENZAPRINE 10 MG TAB PO SCH (21:06)
[2020-05-31] MEDS: METOPROLOL TARTRATE 50 MG TAB PO SCH (21:07)
[2020-05-31] MEDS: diphenhydrAMINE 50 MG CAP PO SCH (21:07)
[2020-05-31] MEDS: PANTOPRAZOLE 40 MG/10 ML VIAL IVP SCH (21:08)
[2020-05-31] MEDS: INSULIN ASPART (NovoLOG) 100 UNIT/ML VIAL SQ SCH (21:08)
[2020-05-31] MEDS: SODIUM CHLORIDE 0.9% 1,000 ML IV SCH (21:29)
[2020-05-31] MEDS: ALPRAZolam 1 MG TAB PO SCH (21:31)
--- NOTE | 2020-05-31 22:19 | HP ---
HISTORY AND PHYSICAL I am covering for Dr. Mendoza. CHIEF COMPLAINT: Shortness of breath. HISTORY OF PRESENT ILLNESS: This 35-year-old gentleman with a past medical history of asthma, diabetes, hyperlipidemia, hypertension, history of DJD, history of pneumonia, being followed by Dr. Rafiq Mendoza in the outpatient setting, not feeling well over the past several days. Patient having increasing shortness of breath and cough. The patient came to [facility] and was admitted for further evaluation and treatment. The patient had increased work of breathing and the patient was started on BiPAP as well. The basic labs showed a normal LDH. C-reactive protein 12.3. The rapid Covid 19 was negative. WBC 13.9 and glucose is 134. The D-dimer was less than 0.17, but however, CT scan of the chest showed no evidence of pulmonary embolism, but possible bibasilar infiltrates, interstitial infiltrates also. There is no history of fever, rigors, chills at this time. The patient had apparently some contact with family members who had some Covid 19 disease. PAST MEDICAL HISTORY: History of asthma, diabetes, hypertension, hyperlipidemia, history of DJD, history of pneumonia and sleep apnea. MEDICATIONS: Home medications are: 1. Trazodone 150 mg q.h.s. 2. Glucophage 1000 mg b.i.d. 3. Benadryl. 4. Norvasc. 5. Lopressor. 6. Losartan. 7. Flexeril. 8. Vitamin D3. 9. Albuterol. 10.Testosterone. 11.Lasix. 12.Lipitor. 13.Abilify. 14.Xanax. ALLERGIES: ERYTHROMYCIN BASE. FAMILY HISTORY: Unknown. SOCIAL HISTORY: Previous history of smoking. No history of current smoking, alcohol intake. REVIEW OF SYSTEMS: ENT: No diminished vision. No diminished hearing. Cardiovascular system as mentioned earlier. RESPIRATORY: As mentioned earlier. GI no nausea or vomiting. no dysuria. NERVOUS SYSTEM: No numbness or weakness. ALLERGY/IMMUNOLOGY: As mentioned earlier. HEMATOLOGY/ONCOLOGY: No history of anemia. ENDOCRINE: History of diabetes. No hypothyroidism. CONSTITUTIONAL: As mentioned earlier. DERMATOLOGY: Negative. RHEUMATOLOGY: Negative. PSYCHIATRIC: As mentioned earlier. PHYSICAL EXAMINATION: Alert and oriented x3. Pulse is 114, regular. Blood pressure is 151/100. Respirations 34. Temperature normal, pulse ox 98% on BiPAP. HEENT: Conjunctivae normal. Oral mucosa moist. Neck is no jugular venous distention. No carotid bruit. No lymph node enlargement. Cardiovascular systems: S1, S2. Respirations: Breath sounds diminished in the bases. Bilateral scattered rhonchi and crackles. ABDOMEN: Soft, obese, nontender. LEGS are no edema. No swelling. Nervous system : Higher functions as mentioned earlier. Moves all 4 limbs. No focal motor or sensory deficits. Lymphatics: No lymph nodes palpable in the neck, axillae or groin. SKIN: No ulcer, no rash and no bleeding. Joints: No active deforming arthropathy. LABS: WBC 30, hemoglobin 16.2. Other labs are noted. Chest x-ray reviewed personally. CT scan reviewed personally. ASSESSMENT: 1. Acute bilateral interstitial pneumonia with possibly viral pneumonia with possible acute Covid 19 infection with acute hypoxic respiratory failure on BiPAP. 2. Possible sepsis. 3. Increased WBC. 4. Macrocytosis. 5. Increased CRP. 6. History of asthma. 7. Diabetes mellitus type 2. 8. Hypertension. 9. Hyperlipidemia. 10.History of degenerative joint disease. 11.History of pneumonia. 12.History of sleep apnea. 13.History of diabetes type 2. 14.History of carpal tunnel syndrome. 15.History of left bundle branch block. 16.History of hiatal hernia. 17.History of anxiety, depression. 18.Morbid obesity with body mass index 58.3. RECOMMENDATIONS AND DISCUSSION: This 35-year-old gentleman who presented with multiple complex medical issues, we will monitor the patient closely, continue the current medications, management and symptomatic treatment. I recommend initiate broad-spectrum IV antibiotics, bronchodilators. Continue the BiPAP. I would also recommend PCR send out Covid testing. Otherwise, I would also recommend pulmonary and infectious disease evaluation. Other inflammatory markers of Covid would also be pursued and I would also recommend serum mycoplasma antibodies and urine and antigens as well to rule out the possibility of pneumonia. Influenza swab also recommended. Overall prognosis guarded because of multiple complex medical issues. further recommendations to follow. A copy of dictation being forwarded to Dr. Mendoza, who is the primary physician JAILYN / EUSEBIA: [id number] / [facility]ALK[facility]arina
[2020-05-31] MEDS: LEVOFLOXACIN 500MG-D5W PMX 500 MG in DEXTROSE/WATER 1 100ML.BAG IVPB SCH (22:30)
[2020-05-31] MEDS: ARIPiprazole 10 MG TAB PO SCH (22:35)
[2020-05-31] MEDS: traZODone HCL 50 MG TAB PO SCH (22:36)
[2020-05-31 23:10] LABS: Glucose,Whole Blood 168 mg/dL (75-99)
[2020-06-01] MEDS: ALBUTEROL HFA INHALER INHALATION SCH ×4 (02:36→19:29)
[2020-06-01 04:18] LABS: Ferritin 14.8 ng/mL (22.0-322.0)
[2020-06-01 06:16] LABS: Anisocytosis Slight; Basophils # (A) 0.1 k/uL (0-0.2); Basophils % (A) 0 %; Eosinophils # (A) 0.1 k/uL (0-0.7); Eosinophils % (A) 1 %; HCT 53.5 % (39.0-53.0); HGB 16.7 gm/dL (13.0-17.5); Hypochromasia Moderate; Lymphocytes % (A) 7 %; MCH 23.3 pg (25.0-35.0); MCHC 31.2 g/dL (31.0-37.0); MCV 74.7 fL (80.0-100.0); Mean Platelet Volume 7.2; Microcytosis Moderate; Monocytes # (A) 0.3 k/uL (0-1.0); Monocytes % (A) 2 %; Neutrophils # (A) 12.8 k/uL (1.3-7.7); Neutrophils % (A) 90 %; Platelet Count 335 k/uL (150-450); WBC 14.2 k/uL (3.8-10.6)
[2020-06-01 06:25] LABS: ALT 32 U/L (4-49); AST 22 U/L (17-59); African American GFR (CKD) >90 (>60 ml/min/1.73 sqM); Albumin 4.5 g/dL (3.5-5.0); Albumin/Globulin Ratio 1.3; Alkaline Phosphatase 153 U/L (38-126); Anion Gap 12 mmol/L; Blood Urea Nitrogen 19 mg/dL (9-20); Calcium 9.9 mg/dL (8.4-10.2); Carbon Dioxide 21 mmol/L (22-30); Chloride 106 mmol/L (98-107); Globulin 3.5 g/dL; Glucose 242 mg/dL (74-99); Magnesium 1.9 mg/dL (1.6-2.3); Non-African American GFR(CKD) >90 (>60 ml/min/1.73 sqM); Potassium 4.9 mmol/L (3.5-5.1); Sodium 139 mmol/L (137-145); Total Bilirubin 1.1 mg/dL (0.2-1.3)
[2020-06-01 06:31] LABS: RBC 7.16 m/uL (4.30-5.90)
[2020-06-01 08:45] LABS: Glucose,Whole Blood 162 mg/dL (75-99)
[2020-06-01] MEDS: METOPROLOL TARTRATE 50 MG TAB PO SCH ×2 (08:51→22:37)
[2020-06-01] MEDS: LOSARTAN 50 MG TAB PO SCH (08:51)
[2020-06-01] MEDS: metFORMIN 500 MG TAB PO SCH (08:51)
[2020-06-01] MEDS: CHOLECALCIFEROL 1,000 UNIT TAB PO SCH (08:52)
[2020-06-01] MEDS: PANTOPRAZOLE 40 MG/10 ML VIAL IVP SCH (08:52)
[2020-06-01] MEDS: CYCLOBENZAPRINE 10 MG TAB PO SCH ×2 (08:52→22:36)
[2020-06-01] MEDS: DEXAMETHASONE SOD PHOSPHATE 10 MG/ML 1 ML VIAL IV SCH (08:52)
[2020-06-01] MEDS: amLODIPine 10 MG TAB PO SCH (08:52)
[2020-06-01] MEDS: INSULIN ASPART (NovoLOG) 100 UNIT/ML VIAL SQ SCH ×4 (08:53→22:39)
[2020-06-01] MEDS ORDERED: PANTOPRAZOLE 40 MG/10 ML VIAL IV SCH (09:00)
[2020-06-01] MEDS: FOLIC ACID 1 MG TAB PO SCH (11:30)
[2020-06-01] MEDS: SODIUM CHLORIDE 0.9% 1,000 ML IV SCH ×2 (12:48→22:36)
--- NOTE | 2020-06-01 17:26 | P.CNPUL ---
History of Present Illness Consult date: 06/01/20 Requesting physician: Francesco Wheatley Reason for consult: dyspnea, hypoxemia, abnormal CXR/CT Chief complaint: Shortness of breath, chest congestion, cough History of present illness: 35-year-old -Italian male, with past medical history of sleep apnea with AHI of 20 on CPAP therapy however patient has difficult time tolerating the therapy, morbid obesity with BMI of 58.3 kg/m, hypertension, diabetes mellitus, chronic bronchial asthma, unspecified, chronic bronchitis, never smoker, anxie ty, depression, hyperlipidemia, osteoarthritis, previous episode of pneumonia, who presented to the emergency department on 05/31/2020 for evaluation of difficulty breathing, worsening cough and chest congestion. His onset of symptoms was one week ago on Sunday. Denies any chest pain, his cough is dry, he feels like he is not able to bring up any phlegm, does report some congestion in the chest, denied any fever or chills. Patient was sent in to the emergency department by his primary care physician. He has been using nebulized albuterol treatments at home with little improvement. Denies any abdominal pain, no back pain, no wheezing, no hemoptysis. Chest x-ray showed low lung volumes and cardiomegaly without any suspicious acute pulmonary process. His lab data showed a white blood cell, 13.9, hemoglobin of 16.5, electrolytes and renal profile were unremarkable, lactic acid was mildly elevated at 2.2, improved after IV hydration down to 1.9, d-dimer was negative at less than 0.17, COVID 19 PCR was negative, patient was started on azithromycin and Rocephin for possibility of community acquired pneumonia, Legionella urine antigen came back negative, CTA chest completed showing no evidence of pulmonary embolism, bilateral lower lobe infiltrate and atelectasis and cardiomegaly. Blood cultures show no growth, room air pulse ox is 80-94%, patient is seen on the regular medical floor, he is resting comfortably in bed, appears to be in no acute distress, low-grade fever today, with a temp of 99.3F, appears to be breathing comfortably, only occasional cough, no phlegm production, hemodynamically he is stable, he is hoping to be found improved enough to be sent home. His current diabetic coverage includes Levaquin, he is on oral Decadron, he is on inhaled bronchodilators, he states he is feeling a bit better since he came in. Review of Systems All systems: negative Constitutional: Denies chills, Denies fever Eyes: denies blurred vision, denies pain Ears, nose, mouth and throat: Denies headache, Denies sore throat Cardiovascular: Denies chest pain, Denies shortness of breath Respiratory: Reports congestion, Reports cough, Reports dyspnea Gastrointestinal: Denies abdominal pain, Denies diarrhea, Denies nausea, Denies vomiting Musculoskeletal: Denies myalgias Integumentary: Denies pruritus, Denies rash Neurological: Denies numbness, Denies weakness Psychiatric: Denies anxiety, Denies depression Endocrine: Denies fatigue, Denies weight change Past Medical History Past Medical History: Asthma, Diabetes Mellitus, Hyperlipidemia, Hypertension, Osteoarthritis (OA), Pneumonia Additional Past Medical History / Comment(s): NIDDM type II, EZEQUIEL with Cpap use- pt has difficulty tolerating, L carpal tunnel syndrome, chronic low back pain, athrtitis bilateral hands, asthma as a child, bronchitis, LBBB, hiatal hernia at , antral polyp, hemorrhoids, obesity History of Any Multi-Drug Resistant Organisms: None Reported Past Surgical History: No Surgical Hx Reported Additional Past Surgical History / Comment(s): EGD, colonoscopy 10 years ago Past Anesthesia/Blood Transfusion Reactions: No Reported Reaction Past Psychological History: Anxiety, Depression Additional Psychological History / Comment(s): Pt resides with his significant other and 4 children. Pt is independent. He drives. Smoking Status: Former smoker Past Alcohol Use History: None Reported Additional Past Alcohol Use History / Comment(s): Pt started smoking in 1998 and quit in 2008. Past Drug Use History: None Reported - Past Family History Father History Unknown: Yes Additional Family Medical History / Comment(s): Pt has never met his father. Mother Additional Family Medical History / Comment(s): Mother is a 2 ppd smoker. Pt does not know her medical hx. Medications and Allergies Home Medications Medication Instructions Recorded Confirmed Type amLODIPine [Norvasc] 10 mg PO DAILY 02/04/16 05/31/20 History Cyclobenzaprine [Flexeril] 10 mg PO BID 06/29/18 05/31/20 History ARIPiprazole [Abilify] 10 mg PO HS 08/06/19 05/31/20 History Atorvastatin [Lipitor] 40 mg PO HS 08/06/19 05/31/20 History Furosemide [Lasix] 20 mg PO DAILY PRN 08/06/19 05/31/20 History Losartan Potassium 100 mg PO DAILY 08/06/19 05/31/20 History Testosterone Cypionate 300 mg IM Q14D 08/06/19 05/31/20 History [Depo-Testosterone] ALPRAZolam [Xanax] 1 mg PO BID PRN 05/31/20 05/31/20 History ALPRAZolam [Xanax] 1 mg PO HS 05/31/20 05/31/20 History Albuterol Sulfate [Proair Hfa] 1 - 2 puff INHALATION RT-Q4H PRN 05/31/20 05/31/20 History Cefdinir 300 mg PO Q12H 05/31/20 05/31/20 History Cholecalciferol [Vitamin D3 (25 2,000 unit PO DAILY 05/31/20 05/31/20 History Mcg = 1000 Iu)] Metoprolol Tartrate [Lopressor] 50 mg PO BID 05/31/20 05/31/20 History diphenhydrAMINE [Benadryl] 100 mg PO HS 05/31/20 05/31/20 History metFORMIN HCL [Glucophage] 1,000 mg PO BID 05/31/20 05/31/20 History traZODone HCL 150 mg PO HS 05/31/20 05/31/20 History Allergies Allergy/AdvReac Type Severity Reaction Status Date / Time erythromycin base Allergy Unknown Verified 05/31/20 19:42 Physical Exam Vitals: Vital Signs Temp Pulse Pulse Resp BP BP Pulse Ox 06/01/20 14:15 98.4 F 110 H 30 H 152/101 88 L 06/01/20 13:25 99.3 F 102 H 25 H 140/99 94 L 06/01/20 11:39 102 H 18 137/100 94 L 06/01/20 07:00 99.3 F 100 28 H 179/97 100 06/01/20 06:16 102 H 18 157/92 96 06/01/20 03:50 98.2 F 112 H 18 158/96 97 06/01/20 02:40 113 H 28 H 97 06/01/20 02:10 97 05/31/20 22:40 98.5 F 05/31/20 22:00 93 50 H 153/109 100 05/31/20 19:49 114 H 35 H 151/100 98 05/31/20 18:50 113 H 45 H 150/101 99 05/31/20 18:39 114 H 47 H 141/120 97 05/31/20 18:04 120 H 45 H 131/77 95 GENERAL EXAM: Alert, very pleasant, 35-year-old -Italian male, morbidly obese, he is laying comfortably on the bed, on his abdomen, currently 88% on room air comfortable in no apparent distress. HEAD: Normocephalic/atraumatic. EYES: Normal reaction of pupils, equal size. Conjunctiva pink, sclera white. NOSE: Clear with pink turbinates. THROAT: No erythema or exudates. NECK: No masses, no JVD, no thyroid enlargement, no adenopathy. CHEST: No chest wall deformity. Symmetrical expansion. LUNGS: Equal air entry with no crackles, wheeze, rhonchi or dullness. CVS: Regular rate and rhythm, normal S1 and S2, no gallops, no murmurs, no rubs ABDOMEN: Soft, nontender. No hepatosplenomegaly, normal bowel sounds, no guarding or rigidity. EXTREMITIES: No clubbing, no edema, no cyanosis, 2+ pulses and upper and lower extremities. MUSCULOSKELETAL: Muscle strength and tone normal. SPINE: No scoliosis or deformity SKIN: No rashes CENTRAL NERVOUS SYSTEM: Alert and oriented -3. No focal deficits, tone is n ormal in all 4 extremities. PSYCHIATRIC: Alert and oriented -3. Appropriate affect. Intact judgment and insight. Results - Laboratory Findings CBC and BMP: 06/01/20 05:56 06/01/20 05:56 PT/INR, D-dimer PT 10.5 sec (9.0-12.0) 05/31/20 19:24 INR 1.0 (<1.2) 05/31/20 19:24 D-Dimer <0.17 mg/L FEU (<0.60) 05/31/20 18:00 Abnormal lab findings: Abnormal Labs 05/31/20 05/31/20 05/31/20 15:07 15:07 15:07 WBC 13.9 H RBC 7.40 H Hct 54.3 H MCV 73.4 L MCH 22.3 L MCHC 30.4 L RDW 17.7 H Neutrophils # 10.0 H Carbon Dioxide Glucose 150 H POC Glucose (mg/dL) Plasma Lactic Acid Estevan 2.2 H* Ferritin Alkaline Phosphatase 144 H C-Reactive Protein 05/31/20 05/31/20 05/31/20 19:24 19:33 20:34 WBC RBC Hct MCV MCH MCHC RDW Neutrophils # Carbon Dioxide Glucose POC Glucose (mg/dL) 134 H 158 H Plasma Lactic Acid Estevan Ferritin 14.8 L Alkaline Phosphatase C-Reactive Protein 12.3 H 05/31/20 06/01/20 06/01/20 23:08 05:56 05:56 WBC 14.2 H RBC 7.16 H Hct 53.5 H MCV 74.7 L MCH 23.3 L MCHC RDW 18.0 H Neutrophils # 12.8 H Carbon Dioxide 21 L Glucose 242 H POC Glucose (mg/dL) 168 H Plasma Lactic Acid Estevan Ferritin Alkaline Phosphatase 153 H C-Reactive Protein 06/01/20 08:44 WBC RBC Hct MCV MCH MCHC RDW Neutrophils # Carbon Dioxide Glucose POC Glucose (mg/dL) 162 H Plasma Lactic Acid Estevan Ferritin Alkaline Phosphatase C-Reactive Protein - Diagnostic Findings Chest x-ray: report reviewed, image reviewed CT scan - chest: report reviewed, image reviewed Assessment and Plan Plan: Assessment: #1. Acute hypoxic respiratory failure related to acute bibasilar community- acquired pneumonia, COVID 19 was ruled out via PCR, legionella urine antigen was negative, and there was no evidence of pulmonary embolism on CT chest, CAT scan did show bilateral lower lobe infiltrates and atelectasis. #2. History of obstructive sleep apnea, with AHI of 20, patient is on CPAP therapy although he has difficult time tolerating it #3. Morbid obesity with BMI of 50.3 kg/m #4. Hypertension #5. Hyperlipidemia #6. Diabetes mellitus type 2 #7. History of chronic bronchial asthma, unspecified #8. Previous episodes of pneumonia #9. Lifetime nonsmoker #10. Anxiety, depression #11. History of hiatal hernia Plan: Continue current antibiotic coverage, COVID 19 has been ruled out, we will order CPAP for bedtime, continue inhaled bronchodilators, continue oral steroids, continue vitamins, if remains stable and continues to improve may consider discharge home in the next 24 hours. Will need outpatient follow-up with Dr. Samano in 7-10 days I performed a history & physical examination of the patient and discussed their management with my nurse practitioner, Briseida Mendes. I reviewed the nurse practitioner's note and agree with the documented findings and plan of care. Lung sounds are positive for diminished breath sounds. The findings and the impression was discussed with the patient. I attest to the documentation by the nurse practitioner. Time with Patient: Greater than 30
[2020-06-01 17:36] LABS: Glucose,Whole Blood 180 mg/dL (75-99)
--- NOTE | 2020-06-01 19:38 | P.PN ---
Subjective Progress Note Date: 06/01/20 Principal diagnosis: Pneumonia This pleasant 35-year-old male who is known to the practice is sitting comfortably on the side of the bed, he states he has seen his vice president process dominic vance who he reports is going to transition him to oral antibiotics with a possible plan for discharge tomorrow. He states he has feeling marked improvement of his respirations at this time and states he's feeling much better than he had prior to entering the emergency department yesterday. Objective - Vital Signs Vital signs: Vital Signs Temp 98.5 F 06/01/20 17:35 Pulse 121 H 06/01/20 17:35 Resp 28 H 06/01/20 17:35 BP 152/83 06/01/20 17:35 Pulse Ox 94 L 06/01/20 17:35 Intake & Output 06/01/20 06/01/20 06/02/20 06:59 18:59 06:59 Weight 195.045 kg Other: # Voids 2 - Constitutional General appearance: Present: cooperative, mild distress, morbidly obese - EENT ENT: Present: hearing grossly normal Ears: bilateral: normal - Respiratory Respiratory: bilateral: CTA - Cardiovascular Rhythm: regular Heart sounds: normal: S1, S2 - Gastrointestinal General gastrointestinal: Present: normal bowel sounds, soft - Integumentary Integumentary: Present: normal - Psychiatric Psychiatric: Present: A&O x's 3, appropriate affect, intact judgment & insight - Labs CBC & Chem 7: 06/01/20 05:56 06/01/20 05:56 Labs: Abnormal Lab Results - Last 24 Hours (Table) 05/31/20 05/31/20 05/31/20 Range/Units 19:24 19:33 20:34 WBC (3.8-10.6) k/uL RBC (4.30-5.90) m/uL Hct (39.0-53.0) % MCV (80.0-100.0) fL MCH (25.0-35.0) pg RDW (11.5-15.5) % Neutrophils # (1.3-7.7) k/uL Carbon Dioxide (22-30) mmol/L Glucose (74-99) mg/dL POC Glucose (mg/dL) 134 H 158 H (75-99) mg/dL Ferritin 14.8 L (22.0-322.0) ng/mL Alkaline Phosphatase (38-126) U/L C-Reactive Protein 12.3 H (<10.0) mg/L 05/31/20 06/01/20 06/01/20 Range/Units 23:08 05:56 05:56 WBC 14.2 H (3.8-10.6) k/uL RBC 7.16 H (4.30-5.90) m/uL Hct 53.5 H (39.0-53.0) % MCV 74.7 L (80.0-100.0) fL MCH 23.3 L (25.0-35.0) pg RDW 18.0 H (11.5-15.5) % Neutrophils # 12.8 H (1.3-7.7) k/uL Carbon Dioxide 21 L (22-30) mmol/L Glucose 242 H (74-99) mg/dL POC Glucose (mg/dL) 168 H (75-99) mg/dL Ferritin (22.0-322.0) ng/mL Alkaline Phosphatase 153 H (38-126) U/L C-Reactive Protein (<10.0) mg/L 06/01/20 06/01/20 Range/Units 08:44 17:23 WBC (3.8-10.6) k/uL RBC (4.30-5.90) m/uL Hct (39.0-53.0) % MCV (80.0-100.0) fL MCH (25.0-35.0) pg RDW (11.5-15.5) % Neutrophils # (1.3-7.7) k/uL Carbon Dioxide (22-30) mmol/L Glucose (74-99) mg/dL POC Glucose (mg/dL) 162 H 180 H (75-99) mg/dL Ferritin (22.0-322.0) ng/mL Alkaline Phosphatase (38-126) U/L C-Reactive Protein (<10.0) mg/L Microbiology - Last 24 Hours (Table) 05/31/20 15:07 Blood Culture - Preliminary Blood No Growth after 24 hours - Imaging and Cardiology Chest x-ray: report reviewed CT scan - chest: report reviewed Assessment and Plan Assessment: Pneumonia Diabetes mellitus type 2 Hypertension Hyperlipidemia History of DJD History of sleep apnea History of asthma History of anxiety History of depression (1) Pneumonia Narrative/Plan: Continue pulmonology consultation for recommendations and treatment plan Current Visit: Yes Status: Acute Code(s): J18.9 - PNEUMONIA, UNSPECIFIED ORGANISM SNOMED Code(s): 728865645 Plan: Continue antibiotic therapy Continue pulmonology consultation for recommendations and treatment plan
[2020-06-01] MEDS ORDERED: VANCOMYCIN IV PER PHARMACY 1 EACH MISC MISCELLANE PRN (20:13)
[2020-06-01 20:54] LABS: Glucose,Whole Blood 196 mg/dL (75-99)
[2020-06-01] MEDS ORDERED: VANCOMYCIN 2,500 MG in SODIUM CHLORIDE 0.9% 500 ML 500 ML IVPB ONE (21:00)
[2020-06-01] MEDS: traZODone HCL 50 MG TAB PO SCH (22:36)
[2020-06-01] MEDS: ALPRAZolam 1 MG TAB PO SCH (22:37)
[2020-06-01] MEDS: ATORVASTATIN 40 MG TAB PO SCH (22:37)
[2020-06-01] MEDS: ARIPiprazole 10 MG TAB PO SCH (22:39)
--- NOTE | 2020-06-01 23:36 | CONS ---
CONSULTATION DATE OF SERVICE: 06/01/2020 REASON FOR STAY: Pneumonia/Covid. HISTORY OF PRESENT ILLNESS: The patient is a 35-year-old male with a past medical history significant for asthma, presenting to the ER, admitted to the hospital yesterday for evaluation of increasing shortness of breath, cough and congestion. The patient was sent to the hospital by his primary care physician. The patient's symptoms have been getting worse for the last 3-4 days. The patient denies having any headache or URI symptoms except some congestion in the sinuses. The patient denies having any chest pain. Main symptom has been increasing shortness of breath. He also has a cough which is moderate in intensity not bringing up any sputum. The patient denies having any nausea, no vomiting, no abdominal pain, no diarrhea. . With these symptoms, the patient was evaluated by the ER physician. On arrival to the ER, the patient was afebrile. Subsequently did have a low-grade fever of 99.3. The patient did have a white count of 32.8, BUN 14.2 with no evidence of any lymphopenia. D-dimer was negative. Kidney function was normal. Procalcitonin 0.04. CRP is 12.3. Liver exams are normal. Patient did have a chest x-ray which shows low lung volumes and cardiomegaly without new suspicious acute pulmonary process. The patient did have a CT angiogram of the chest that was negative for PE, shows bilateral lobe infiltrate and atelectasis compared to old exam. The patient has been admitted to the hospital. The patient was started on dexamethasone, Levaquin and he received a dose of Rocephin. Subsequent blood culture currently positive with gram-positive cocci. Infectious disease was consulted for further management of antibiotic therapy. REVIEW OF SYSTEMS: Positive points have been mentioned in HPI. Rest of the systems are negative. PAST MEDICAL HISTORY: Asthma, diabetes mellitus, hypertension, hyperlipidemia, osteoarthritis, pneumonia, history of sleep apnea. PAST SURGICAL HISTORY: EGD, colonoscopy. SOCIAL HISTORY: Denies smoking, drinking or drug use. FAMILY HISTORY: No pertinent findings noticed. ALLERGIES: ALLERGIES TO ERYTHROMYCIN AND BEES. MEDICATIONS: Medications include the patient received a dose of Rocephin in the ER. Currently on Levaquin, Desyrel, IV fluids, Protonix, Narcan, morphine sulfate, and Lopressor, Cozaar, Ativan, Levaquin, NovoLog, Lasix, folic acid, Decadron, Lipitor, Abilify, Norvasc, Xanax. PHYSICAL EXAMINATION: Blood pressure 128/86, pulse of 73, temperature 98.3. He is 98% on room air. General description: The patient is a middle-aged male lying in bed in no distress. No tachypnea or accessory muscles of respiration use. HEENT: Examination shows no pallor or scleral icterus. Oral mucous membranes dry. Neck: Trachea central. No thyromegaly. Lungs: Unlabored breathing, decreased intensity of breath sounds. No wheeze. Heart S1, S2. Regular rate and rhythm. ABDOMEN: Soft, no tenderness. No guarding. No rigidity. EXTREMITIES: No edema of the feet. Skin examination: No rash or mass palpable. Neurologic: The patient is awake, alert, oriented times three. Mood and affect normal. LABS: Hemoglobin is 15.2, white count 14.2 with left shift. BUN of 19, creatinine 1.0. Electrolytes have been normal. Liver enzymes are normal. Kate PCR has been negative. Influenza was negative. DIAGNOSTIC IMPRESSION AND PLAN: Patient admitted to the hospital with increasing shortness of breath and cough in this patient who did have evidence of bilateral pneumonia on the basis of the CT now with evidence of gram-positive bacteremia with question of possible streptococcal pneumoniae with secondary bacteremia versus MRSA/MSSA pneumonia with secondary bacteremia, low grade fever more likely Streptococcus pneumonia as the patient has no risk factor for an MRSA infection. PLAN: 1. Blood cultures will be repeated to document clearance of his bacteremia. 2. Vancomycin pharmacy to dose target of 15 while watching his kidney function and vanco trough closely. 3. We will follow on clinical condition and culture to further adjust medication if needed. Thank you for this consultation. Will follow this patient along with you. MMODL / IJN: [id number] /
[2020-06-02] MEDS: ALBUTEROL HFA INHALER INHALATION SCH ×3 (01:29→19:08)
[2020-06-02] MEDS: diphenhydrAMINE 50 MG CAP PO SCH ×2 (02:23→20:00)
[2020-06-02] MEDS: LEVOFLOXACIN 500MG-D5W PMX 500 MG in DEXTROSE/WATER 1 100ML.BAG IVPB SCH ×2 (03:59→20:01)
[2020-06-02] MEDS: VANCOMYCIN 2,500 MG in SODIUM CHLORIDE 0.9% 500 ML 500 ML IVPB SCH ×2 (05:09→13:46)
[2020-06-02 06:29] LABS: ALT 25 U/L (4-49); AST 16 U/L (17-59); African American GFR (CKD) >90 (>60 ml/min/1.73 sqM); Albumin 3.9 g/dL (3.5-5.0); Albumin/Globulin Ratio 1.3; Alkaline Phosphatase 111 U/L (38-126); Anion Gap 8 mmol/L; Blood Urea Nitrogen 21 mg/dL (9-20); Calcium 9.2 mg/dL (8.4-10.2); Carbon Dioxide 25 mmol/L (22-30); Chloride 104 mmol/L (98-107); Globulin 3.1 g/dL; Glucose 243 mg/dL (74-99); Non-African American GFR(CKD) >90 (>60 ml/min/1.73 sqM); Potassium 4.8 mmol/L (3.5-5.1); Sodium 137 mmol/L (137-145); Total Bilirubin 0.8 mg/dL (0.2-1.3)
[2020-06-02 06:49] LABS: Anisocytosis Slight; Basophils # (A) 0.1 k/uL (0-0.2); Basophils % (A) 0 %; Eosinophils # (A) 0.1 k/uL (0-0.7); Eosinophils % (A) 0 %; HCT 50.9 % (39.0-53.0); HGB 15.5 gm/dL (13.0-17.5); Hypochromasia Marked; Lymphocytes # (A) 2.6 k/uL (1.0-4.8); Lymphocytes % (A) 15 %; MCH 22.8 pg (25.0-35.0); MCHC 30.5 g/dL (31.0-37.0); Mean Platelet Volume 7.6; Microcytosis Moderate; Monocytes # (A) 0.9 k/uL (0-1.0); Monocytes % (A) 5 %; Neutrophils # (A) 13.9 k/uL (1.3-7.7); Neutrophils % (A) 78 %; Platelet Count 320 k/uL (150-450); RBC 6.79 m/uL (4.30-5.90); WBC 17.8 k/uL (3.8-10.6)
[2020-06-02 07:34] LABS: Glucose,Whole Blood 143 mg/dL (75-99)
--- NOTE | 2020-06-02 07:34 | XR ---
EXAMINATION TYPE: XR chest 1V DATE OF EXAM: 06/02/2020 CLINICAL HISTORY: Difficulty breathing progress study. TECHNIQUE: Single AP portable upright view of the chest is obtained. COMPARISON: Chest x-ray and CTA chest from 2 days earlier. FINDINGS: Exam is suboptimal due to patient's large body habitus. Persistent low lung volumes and ca rdiomegaly. No new suspicious focal airspace opacity, pleural effusion, or pneumothorax seen bilatera lly. Basilar opacities favoring atelectatic change on CT less well seen on x-ray. Osseous structures are intact. IMPRESSION: Low lung volumes and cardiomegaly without new acute infiltrate seen.
[2020-06-02] MEDS: LOSARTAN 50 MG TAB PO SCH (08:06)
[2020-06-02] MEDS: METOPROLOL TARTRATE 50 MG TAB PO SCH ×2 (08:06→20:00)
[2020-06-02] MEDS: CYCLOBENZAPRINE 10 MG TAB PO SCH ×2 (08:06→20:00)
[2020-06-02] MEDS: PANTOPRAZOLE 40 MG TABLET PO SCH (08:07)
[2020-06-02] MEDS: amLODIPine 10 MG TAB PO SCH (08:07)
[2020-06-02] MEDS: DEXAMETHASONE SOD PHOSPHATE 10 MG/ML 1 ML VIAL IV SCH (08:07)
[2020-06-02] MEDS: INSULIN ASPART (NovoLOG) 100 UNIT/ML VIAL SQ SCH ×4 (08:07→20:46)
[2020-06-02] MEDS: CHOLECALCIFEROL 1,000 UNIT TAB PO SCH (08:11)
--- NOTE | 2020-06-02 08:47 | P.PN ---
Subjective Progress Note Date: 06/02/20 Principal diagnosis: Pneumonia This pleasant 35-year-old male who is known to the practice is laying comfortably on his side in the bed, he states he is feeling better and is inqu iring about discharge, his blood culture shows gram positive cocci and per Dr. Howard he has been started on vancomycin, today's chest xray reviewed, discussed with him the need to remain in the hospital for IV antibiotics, he verbalizes understanding. Objective - Vital Signs Vital signs: Vital Signs Temp 98.3 F 06/02/20 02:00 Pulse 107 H 06/02/20 02:00 Resp 28 H 06/02/20 02:00 BP 147/88 06/02/20 02:00 Pulse Ox 94 L 06/02/20 02:00 Intake & Output 06/01/20 06/02/20 06/02/20 18:59 06:59 18:59 Other: # Voids 2 - Constitutional General appearance: Present: cooperative, mild distress, morbidly obese - EENT ENT: Present: hearing grossly normal Ears: bilateral: normal - Respiratory Respiratory: bilateral: diminished - Cardiovascular Rhythm: regular - Gastrointestinal General gastrointestinal: Present: normal bowel sounds, soft - Psychiatric Psychiatric: Present: A&O x's 3, appropriate affect, intact judgment & insight - Labs CBC & Chem 7: 06/02/20 05:16 06/02/20 05:16 Labs: Abnormal Lab Results - Last 24 Hours (Table) 06/01/20 06/01/20 06/01/20 Range/Units 08:44 17:23 20:52 WBC (3.8-10.6) k/uL RBC (4.30-5.90) m/uL MCV (80.0-100.0) fL MCH (25.0-35.0) pg MCHC (31.0-37.0) g/dL RDW (11.5-15.5) % Neutrophils # (1.3-7.7) k/uL BUN (9-20) mg/dL Glucose (74-99) mg/dL POC Glucose (mg/dL) 162 H 180 H 196 H (75-99) mg/dL AST (17-59) U/L 06/02/20 06/02/20 06/02/20 Range/Units 05:16 05:16 07:31 WBC 17.8 H (3.8-10.6) k/uL RBC 6.79 H (4.30-5.90) m/uL MCV 75.0 L (80.0-100.0) fL MCH 22.8 L (25.0-35.0) pg MCHC 30.5 L (31.0-37.0) g/dL RDW 18.0 H (11.5-15.5) % Neutrophils # 13.9 H (1.3-7.7) k/uL BUN 21 H (9-20) mg/dL Glucose 243 H (74-99) mg/dL POC Glucose (mg/dL) 143 H (75-99) mg/dL AST 16 L (17-59) U/L Microbiology - Last 24 Hours (Table) 05/31/20 18:00 Blood Culture Gram Stain - Preliminary Blood 05/31/20 18:00 Blood Culture - Final Blood 05/31/20 15:07 Blood Culture - Preliminary Blood No Growth after 24 hours - Imaging and Cardiology Chest x-ray: report reviewed, image reviewed Assessment and Plan Assessment: Pneumonia Diabetes mellitus type 2 Hypertension Hyperlipidemia History of DJD History of sleep apnea History of asthma History of anxiety History of depression Morbid Obesity BMI 58.3 (1) Pneumonia Narrative/Plan: Continue pulmonology consultation for recommendations and treatment plan Continue infectious disease consultation for recommendations and treatment plan Current Visit: Yes Status: Acute Code(s): J18.9 - PNEUMONIA, UNSPECIFIED ORGANISM SNOMED Code(s): 507822216 Plan: Continue pulmonology consultation for recommendations and treatment plan Continue infectious disease consultation for recommendations and treatment plan
[2020-06-02 12:24] LABS: Glucose,Whole Blood 183 mg/dL (75-99)
--- NOTE | 2020-06-02 13:15 | P.PN ---
Subjective Progress Note Date: 06/02/20 Principal diagnosis: Shortness of breath 35-year-old -[place] male, with past medical history of sleep apnea with AHI of 20 on CPAP therapy however patient has difficult time tolerating the therapy, morbid obesity with BMI of 58.3 kg/m, hypertension, diabetes mellitus, chronic bronchial asthma, unspecified, chronic bronchitis, never smoker, anxiety, depression, hyperlipidemia, osteoarthritis, previous episode of pneumonia, who presented to the emergency department on 05/31/2020 for evaluation of difficulty breathing, worsening cough and chest congestion. His onset of symptoms was one week ago on Sunday. Denies any chest pain, his cough is dry, he feels like he is not able to bring up any phlegm, does report some congestion in the chest, denied any fever or chills. Patient was sent in to the emergency department by his primary care physician. He has been using nebulized albuterol treatments at home with little improvement. Denies any abdominal pain, no back pain, no wheezing, no hemoptysis. Chest x-ray showed low lung volumes and cardiomegaly without any suspicious acute pulmonary process. His lab data showed a white blood cell, 13.9, hemoglobin of 16.5, electrolytes and renal profile were unremarkable, lactic acid was mildly elevated at 2.2, improved after IV hydration down to 1.9, d-dimer was negative at less than 0.17, COVID 19 PCR was negative, patient was started on azithromycin and Rocephin for possibility of community acquired pneumonia, Legionella urine antigen came back negative, CTA chest completed showing no evidence of pulmonary embolism, bilateral lower lobe infiltrate and atelectasis and cardiomegaly. Blood cultures show no growth, room air pulse ox is 80-94%, patient is seen on the regular medical floor, he is resting comfortably in bed, appears to be in no acute distress, low-grade fever today, with a temp of 99.3F, appears to be breathing comfortably, only occasional cough, no phlegm production, hemodynamically he is stable, he is hoping to be found improved enough to be sent home. His current diabetic coverage includes Levaquin, he is on oral Decadron, he is on inhaled bronchodilators, he states he is feeling a bit better since he came in. On 10/31/2020 patient seen in follow-up on medical floor, he is currently sitting up in the recliner, he is looking and feeling a little better, however last night one of his blood cultures came back positive for gram-positive cocci in clusters, and gram-positive bacilli. Currently on room air, has pulse ox 94- 98%, he is afebrile, antibiotic coverage is with Levaquin and vancomycin was added last night, no worsening dyspnea, he does get short of breath with any exertion, his been afebrile overnight, his mentation is not altered. Chest x- ray showed low lung volumes and cardiomegaly without new acute infiltrates. Objective - Vital Signs Vital signs: Vital Signs Temp 98.3 F 06/02/20 02:00 Pulse 107 H 06/02/20 02:00 Resp 28 H 06/02/20 02:00 BP 147/88 06/02/20 02:00 Pulse Ox 94 L 06/02/20 02:00 Intake & Output 06/01/20 06/02/20 06/02/20 18:59 06:59 18:59 Other: # Voids 2 1 - Exam GENERAL EXAM: Alert, very pleasant, 35-year-old -[place] male, morbidly obese, he is sitting up in the recliner, currently 94% on room air comfortable in no apparent distress. HEAD: Normocephalic/atraumatic. EYES: Normal reaction of pupils, equal size. Conjunctiva pink, sclera white. NOSE: Clear with pink turbinates. THROAT: No erythema or exudates. NECK: No masses, no JVD, no thyroid enlargement, no adenopathy. CHEST: No chest wall deformity. Symmetrical expansion. LUNGS: Equal air entry with no crackles, wheeze, rhonchi or dullness. CVS: Regular rate and rhythm, normal S1 and S2, no gallops, no murmurs, no rubs ABDOMEN: Soft, nontender. No hepatosplenomegaly, normal bowel sounds, no guarding or rigidity. EXTREMITIES: No clubbing, no edema, no cyanosis, 2+ pulses and upper and lower extremities. MUSCULOSKELETAL: Muscle strength and tone normal. SPINE: No scoliosis or deformity SKIN: No rashes CENTRAL NERVOUS SYSTEM: Alert and oriented -3. No focal deficits, tone is normal in all 4 extremities. PSYCHIATRIC: Alert and oriented -3. Appropriate affect. Intact judgment and insight. - Labs CBC & Chem 7: 06/02/20 05:16 06/02/20 05:16 Labs: Abnormal Lab Results - Last 24 Hours (Table) 06/01/20 06/01/20 06/02/20 Range/Units 17:23 20:52 05:16 WBC 17.8 H (3.8-10.6) k/uL RBC 6.79 H (4.30-5.90) m/uL MCV 75.0 L (80.0-100.0) fL MCH 22.8 L (25.0-35.0) pg MCHC 30.5 L (31.0-37.0) g/dL RDW 18.0 H (11.5-15.5) % Neutrophils # 13.9 H (1.3-7.7) k/uL BUN (9-20) mg/dL Glucose (74-99) mg/dL POC Glucose (mg/dL) 180 H 196 H (75-99) mg/dL AST (17-59) U/L 06/02/20 06/02/20 06/02/20 Range/Units 05:16 07:31 12:00 WBC (3.8-10.6) k/uL RBC (4.30-5.90) m/uL MCV (80.0-100.0) fL MCH (25.0-35.0) pg MCHC (31.0-37.0) g/dL RDW (11.5-15.5) % Neutrophils # (1.3-7.7) k/uL BUN 21 H (9-20) mg/dL Glucose 243 H (74-99) mg/dL POC Glucose (mg/dL) 143 H 183 H (75-99) mg/dL AST 16 L (17-59) U/L Microbiology - Last 24 Hours (Table) 05/31/20 18:00 Blood Culture Gram Stain - Preliminary Blood 05/31/20 18:00 Blood Culture - Final Blood 05/31/20 15:07 Blood Culture - Preliminary Blood No Growth after 24 hours Assessment and Plan Plan: Assessment: #1. Acute hypoxic respiratory failure related to acute bibasilar community- acquired pneumonia, COVID 19 was ruled out via PCR, legionella urine antigen was negative, and there was no evidence of pulmonary embolism on CT chest, CAT scan did show bilateral lower lobe infiltrates and atelectasis. #2. Bacteremia, with preliminary blood cultures positive for gram-positive cocci in clusters and gram-negative bacilli, fungal cultures are pending, patient is covered with Levaquin and vancomycin, this is likely related to pneumonia, rule out MRSA pneumonia #2. History of obstructive sleep apnea, with AHI of 20, patient is on CPAP therapy although he has difficult time tolerating it #3. Morbid obesity with BMI of 50.3 kg/m #4. Hypertension #5. Hyperlipidemia #6. Diabetes mellitus type 2 #7. History of chronic bronchial asthma, unspecified #8. Previous episodes of pneumonia #9. Lifetime nonsmoker #10. Anxiety, depression #11. History of hiatal hernia Plan: Continue current antibiotic coverage patient is currently on Levaquin and vancomycin, will await final culture results, we will need follow-up blood cultures, continue with steroids, we will add prophylactic Lovenox. Continue to follow I performed a history & physical examination of the patient and discussed their management with my nurse practitioner, Briseida Mendes. I reviewed the nurse practitioner's note and agree with the documented findings and plan of care. Lung sounds are positive for diminished breath sounds. The findings and the impression was discussed with the patient. I attest to the documentation by the nurse practitioner. Time with Patient: Less than 30
[2020-06-02] MEDS: ENOXAPARIN 40 MG/0.4 ML SYRINGE SQ SCH (13:20)
[2020-06-02] MEDS: FOLIC ACID 1 MG TAB PO SCH (13:20)
[2020-06-02] MEDS: SODIUM CHLORIDE 0.9% 1,000 ML IV SCH (13:21)
[2020-06-02 17:22] LABS: Glucose,Whole Blood 251 mg/dL (75-99)
[2020-06-02] MEDS: ALPRAZolam 1 MG TAB PO SCH (20:00)
[2020-06-02] MEDS: ATORVASTATIN 40 MG TAB PO SCH (20:00)
[2020-06-02] MEDS: traZODone HCL 50 MG TAB PO SCH (20:00)
[2020-06-02] MEDS: ARIPiprazole 10 MG TAB PO SCH (20:00)
[2020-06-02 20:05] LABS: Glucose,Whole Blood 201 mg/dL (75-99)
--- NOTE | 2020-06-02 22:59 | PN ---
PROGRESS NOTE DATE OF SERVICE: 06/02/2020 REASON FOR FOLLOWUP: Pneumonia and bacteremia. INTERVAL HISTORY: The patient is currently afebrile. The patient seems to be feeling better compared to yesterday. He is breathing more comfortably. The patient denies having any chest pain. He did have some cough, though not bringing up any sputum. No nausea, no vomiting, no abdominal pain or diarrhea. PHYSICAL EXAMINATION: Blood pressure 147/88 with a pulse of 107, temperature 98.3. He is 94% on room air. General description is a middle-aged male up in the chair in no distress. RESPIRATORY SYSTEM: Unlabored breathing with decreased intensity of breath sounds. No wheeze. HEART: S1, S2. Regular rate and rhythm. ABDOMEN: Soft. No tenderness. LABS: Hemoglobin is 15.5 with a white count of 17.8. BUN of 21, creatinine 0.90. Blood culture with Gram-positive. DIAGNOSTIC IMPRESSION AND PLAN: Patient admitted to hospital with increasing shortness of breath which is multifactorial, with concern for possible pneumonia, bilateral basilar, now with evidence of positive blood culture, concern for possible pneumonia versus strep pneumo. Patient is covered with vancomycin and Levaquin; to continue while waiting for the culture to finalize. Blood culture has been repeated to document clearance of bacteremia. MMODL / IJN: [id number] /
[2020-06-03] MEDS: VANCOMYCIN 2,500 MG in SODIUM CHLORIDE 0.9% 500 ML 500 ML IVPB SCH ×2 (00:54→06:08)
[2020-06-03] MEDS: ALBUTEROL HFA INHALER INHALATION SCH ×5 (01:30→22:26)
[2020-06-03] MEDS: SODIUM CHLORIDE 0.9% 1,000 ML IV SCH ×2 (05:37→12:47)
[2020-06-03 07:13] LABS: Glucose,Whole Blood 140 mg/dL (75-99)
[2020-06-03] MEDS: CHOLECALCIFEROL 1,000 UNIT TAB PO SCH (08:39)
[2020-06-03] MEDS: INSULIN ASPART (NovoLOG) 100 UNIT/ML VIAL SQ SCH ×4 (08:39→21:25)
[2020-06-03] MEDS: METOPROLOL TARTRATE 50 MG TAB PO SCH ×2 (08:40→21:24)
[2020-06-03] MEDS: LOSARTAN 50 MG TAB PO SCH (08:40)
[2020-06-03] MEDS: FOLIC ACID 1 MG TAB PO SCH (08:40)
[2020-06-03] MEDS: PANTOPRAZOLE 40 MG TABLET PO SCH (08:40)
[2020-06-03] MEDS: amLODIPine 10 MG TAB PO SCH (08:40)
[2020-06-03] MEDS: DEXAMETHASONE SOD PHOSPHATE 10 MG/ML 1 ML VIAL IV SCH (08:40)
[2020-06-03] MEDS: CYCLOBENZAPRINE 10 MG TAB PO SCH ×2 (08:40→21:24)
[2020-06-03] MEDS: ENOXAPARIN 40 MG/0.4 ML SYRINGE SQ SCH (08:41)
[2020-06-03] MEDS: ALPRAZolam 1 MG TAB PO PRN (09:12)
--- NOTE | 2020-06-03 09:17 | P.PN ---
Subjective Progress Note Date: 06/03/20 Principal diagnosis: Pneumonia This pleasant 35-year-old male who is known to the practice is sitting up in the chair at the bedside with improved respiratory rate and effort, he states he is feeling better, his blood culture shows gram positive cocci and per Dr. Howard he has been started on vancomycin, discussed with him the need to remain in the hospital for IV antibiotics, will continue consultations and current medications as prescribed Objective - Vital Signs Vital signs: Vital Signs Temp 98.2 F 06/03/20 05:00 Pulse 98 06/03/20 05:00 Resp 20 06/03/20 05:00 BP 184/93 06/03/20 05:00 Pulse Ox 91 L 06/03/20 05:00 Intake & Output 06/02/20 06/03/20 06/03/20 18:59 06:59 18:59 Intake Total 1100 567 Balance 1100 567 Intake: Intake, IV Titration 567 Amount Levofloxacin 500Mg-D5w 100 Pmx 500 mg In Dextrose/ Water 1 100ml.bag @ 100 mls/hr IVPB Q24H [facility] Rx#: [id number] Sodium Chloride 0.9% 1, 300 000 ml @ 75 mls/hr IV . [id number] [facility] Rx#:[id number] Vancomycin 2,500 mg In 167 Sodium Chloride 0.9% 500 ml 500 ml @ 167 mls/hr IVPB Q8H [facility] Rx#: [id number] Oral 1100 Other: # Voids 3 - Constitutional General appearance: Present: mild distress, morbidly obese - Neck Neck: Present: normal ROM - Respiratory Respiratory: bilateral: diminished - Cardiovascular Rhythm: regular - Gastrointestinal General gastrointestinal: Present: normal bowel sounds - Neurologic Neurologic: Present: CNII-XII intact - Psychiatric Psychiatric: Present: A&O x's 3, appropriate affect, intact judgment & insight - Labs CBC & Chem 7: 06/02/20 05:16 06/02/20 05:16 Labs: Abnormal Lab Results - Last 24 Hours (Table) 06/02/20 06/02/20 06/02/20 Range/Units 12:00 17:01 20:03 POC Glucose (mg/dL) 183 H 251 H 201 H (75-99) mg/dL 06/03/20 Range/Units 07:12 POC Glucose (mg/dL) 140 H (75-99) mg/dL Microbiology - Last 24 Hours (Table) 06/01/20 20:44 Blood Culture - Preliminary Blood No Growth after 24 hours 05/31/20 15:07 Blood Culture - Preliminary Blood No Growth after 48 hours 05/31/20 18:00 Blood Culture Gram Stain - Preliminary Blood 05/31/20 18:00 Blood Culture - Final Blood Assessment and Plan Assessment: Pneumonia Diabetes mellitus type 2 Hypertension Hyperlipidemia History of DJD History of sleep apnea History of asthma History of anxiety History of depression Morbid Obesity BMI 58.3 (1) Pneumonia Current Visit: Yes Status: Acute Code(s): J18.9 - PNEUMONIA, UNSPECIFIED ORGANISM SNOMED Code(s): 380674231 Plan: Continue pulmonology consultation for recommendations and treatment plan Continue infectious disease consultation for recommendations and treatment plan Continue IV antibiotics
[2020-06-03 10:39] LABS: Glucose,Whole Blood 186 mg/dL (75-99)
[2020-06-03] MEDS ORDERED: hydrALAZINE HCL 20 MG/ML 1 ML VIAL IVP PRN (11:34)
[2020-06-03] MEDS ORDERED: VANCOMYCIN TROUGH DUE 1 EACH MISC MISCELLANE ONE (13:00)
--- NOTE | 2020-06-03 13:00 | P.PN ---
Subjective Progress Note Date: 06/03/20 Principal diagnosis: Shortness of breath 35-year-old -Citizen Of [place] male, with past medical history of sleep apnea with AHI of 20 on CPAP therapy however patient has difficult time tolerating the therapy, morbid obesity with BMI of 58.3 kg/m, hypertension, diabetes mellitus, chronic bronchial asthma, unspecified, chronic bronchitis, never smoker, anxiety, depression, hyperlipidemia, osteoarthritis, previous episode of pneumonia, who presented to the emergency department on 05/31/2020 for evaluation of difficulty breathing, worsening cough and chest congestion. His onset of symptoms was one week ago on Sunday. Denies any chest pain, his cough is dry, he feels like he is not able to bring up any phlegm, does report some congestion in the chest, denied any fever or chills. Patient was sent in to the emergency department by his primary care physician. He has been using nebulized albuterol treatments at home with little improvement. Denies any abdominal pain, no back pain, no wheezing, no hemoptysis. Chest x-ray showed low lung volumes and cardiomegaly without any suspicious acute pulmonary process. His lab data showed a white blood cell, 13.9, hemoglobin of 16.5, electrolytes and renal profile were unremarkable, lactic acid was mildly elevated at 2.2, improved after IV hydration down to 1.9, d-dimer was negative at less than 0.17, COVID 19 PCR was negative, patient was started on azithromycin and Rocephin for possibility of community acquired pneumonia, Legionella urine antigen came back negative, CTA chest completed showing no evidence of pulmonary embolism, bilateral lower lobe infiltrate and atelectasis and cardiomegaly. Blood cultures show no growth, room air pulse ox is 80-94%, patient is seen on the regular medical floor, he is resting comfortably in bed, appears to be in no acute distress, low-grade fever today, with a temp of 99.3F, appears to be breathing comfortably, only occasional cough, no phlegm production, hemodynamically he is stable, he is hoping to be found improved enough to be sent home. His current diabetic coverage includes Levaquin, he is on oral Decadron, he is on inhaled bronchodilators, he states he is feeling a bit better since he came in. On 10/31/2020 patient seen in follow-up on medical floor, he is currently sitting up in the recliner, he is looking and feeling a little better, however last night one of his blood cultures came back positive for gram-positive cocci in clusters, and gram-positive bacilli. Currently on room air, has pulse ox 94- 98%, he is afebrile, antibiotic coverage is with Levaquin and vancomycin was added last night, no worsening dyspnea, he does get short of breath with any exertion, his been afebrile overnight, his mentation is not altered. Chest x- ray showed low lung volumes and cardiomegaly without new acute infiltrates. On 06/03/2020 patient seen in follow-up on medical floor, he is sitting up in the chair, breathing comfortably, denies any acute events overnight, denies any worsening dyspnea, no significant cough or congestion, no completes chest pain, his positive blood culture came back finalize for coagulase-negative staph, and diphtheroid species likely related to contamination, follow blood culture has shown no growth at the 24-hour ronny, previous blood cultures have shown no growth. Patient remains on Levaquin and vancomycin, we'll stop the vancomycin. No fever or chills, room air pulse ox of 94%, his blood pressures have been labile, ranging from 150s to 180s systolic and 80s to 110 diastolic. Patient remains on dexamethasone 6 mg daily, prophylactic anticoagulation, Levaquin, and inhaled bronchodilators Objective - Vital Signs Vital signs: Vital Signs Temp 97.9 F 06/03/20 10:57 Pulse 95 06/03/20 10:57 Resp 18 06/03/20 10:57 BP 174/114 06/03/20 10:57 Pulse Ox 94 L 06/03/20 10:57 Intake & Output 06/02/20 06/03/20 06/03/20 18:59 06:59 18:59 Intake Total 1100 567 Balance 1100 567 Intake: Intake, IV Titration 567 Amount Levofloxacin 500Mg-D5w 100 Pmx 500 mg In Dextrose/ Water 1 100ml.bag @ 100 mls/hr IVPB Q24H [facility] Rx#: [id number] Sodium Chloride 0.9% 1, 300 000 ml @ 75 mls/hr IV . [id number] [facility] Rx#:[id number] Vancomycin 2,500 mg In 167 Sodium Chloride 0.9% 500 ml 500 ml @ 167 mls/hr IVPB Q8H [facility] Rx#: [id number] Oral 1100 Other: # Voids 3 - Exam GENERAL EXAM: Alert, very pleasant, 35-year-old -Citizen Of [place] male, morbidly obese, he is sitting up in the recliner, currently 94% on room air comfortable in no apparent distress. HEAD: Normocephalic/atraumatic. EYES: Normal reaction of pupils, equal size. Conjunctiva pink, sclera white. NOSE: Clear with pink turbinates. THROAT: No erythema or exudates. NECK: No masses, no JVD, no thyroid enlargement, no adenopathy. CHEST: No chest wall deformity. Symmetrical expansion. LUNGS: Equal air entry with no crackles, wheeze, rhonchi or dullness. CVS: Regular rate and rhythm, normal S1 and S2, no gallops, no murmurs, no rubs ABDOMEN: Soft, nontender. No hepatosplenomegaly, normal bowel sounds, no gu arding or rigidity. EXTREMITIES: No clubbing, no edema, no cyanosis, 2+ pulses and upper and lower e xtremities. MUSCULOSKELETAL: Muscle strength and tone normal. SPINE: No scoliosis or deformity SKIN: No rashes CENTRAL NERVOUS SYSTEM: Alert and oriented -3. No focal deficits, tone is normal in all 4 extremities. PSYCHIATRIC: Alert and oriented -3. Appropriate affect. Intact judgment and insight. - Labs CBC & Chem 7: 06/02/20 05:16 06/02/20 05:16 Labs: Abnormal Lab Results - Last 24 Hours (Table) 06/02/20 06/02/20 06/03/20 Range/Units 17:01 20:03 07:12 POC Glucose (mg/dL) 251 H 201 H 140 H (75-99) mg/dL 06/03/20 Range/Units 10:38 POC Glucose (mg/dL) 186 H (75-99) mg/dL Microbiology - Last 24 Hours (Table) 05/31/20 18:00 Blood Culture Gram Stain - Preliminary Blood Blood Culture - Preliminary Coagulase Negative Staph Diphtheroid species 06/01/20 20:44 Blood Culture - Preliminary Blood No Growth after 24 hours 05/31/20 15:07 Blood Culture - Preliminary Blood No Growth after 48 hours 05/31/20 18:00 Blood Culture - Final Blood Assessment and Plan Plan: Assessment: #1. Acute hypoxic respiratory failure related to acute bibasilar community- acquired pneumonia, COVID 19 was ruled out via PCR, legionella urine antigen was negative, and there was no evidence of pulmonary embolism on CT chest, CAT scan did show bilateral lower lobe infiltrates and atelectasis. #2. Bacteremia, with preliminary blood cultures positive for gram-positive cocci in clusters and gram-negative bacilli, blood culture was positive for quite was negative staph and diphtheroids species, likely skin contaminant, was empirically covered with vancomycin and Levaquin, vancomycin will be discon tinued #2. History of obstructive sleep apnea, with AHI of 20, patient is on CPAP therapy although he has difficult time tolerating it #3. Morbid obesity with BMI of 50.3 kg/m #4. Hypertension #5. Hyperlipidemia #6. Diabetes mellitus type 2 #7. History of chronic bronchial asthma, unspecified #8. Previous episodes of pneumonia #9. Lifetime nonsmoker #10. Anxiety, depression #11. History of hiatal hernia Plan: Continue Levaquin, stop the vancomycin, from pulmonary perspective patient is stable for discharge home, he will need 7 more days of oral Levaquin, he will need outpatient follow-up with Dr. Pugh in the office in 7-10 days. I performed a history & physical examination of the patient and discussed their management with my nurse practitioner, Briseida Mendes. I reviewed the nurse practitioner's note and agree with the documented findings and plan of care. Lung sounds are positive for diminished breath sounds. The findings and the impression was discussed with the patient. I attest to the documentation by the nurse practitioner. Time with Patient: Less than 30
[2020-06-03 13:49] LABS: Anisocytosis Slight; Basophils # (A) 0.1 k/uL (0-0.2); Basophils % (A) 1 %; Eosinophils # (A) 0.2 k/uL (0-0.7); Eosinophils % (A) 1 %; HCT 51.7 % (39.0-53.0); HGB 16.3 gm/dL (13.0-17.5); Hypochromasia Moderate; Lymphocytes # (A) 1.3 k/uL (1.0-4.8); Lymphocytes % (A) 7 %; MCH 23.5 pg (25.0-35.0); MCHC 31.6 g/dL (31.0-37.0); MCV 74.2 fL (80.0-100.0); Mean Platelet Volume 8.5; Microcytosis Moderate; Monocytes # (A) 0.4 k/uL (0-1.0); Monocytes % (A) 2 %; Neutrophils % (A) 89 %; Platelet Count 418 k/uL (150-450); RBC 6.97 m/uL (4.30-5.90); RDW 17.9 % (11.5-15.5)
[2020-06-03 14:06] LABS: ALT 28 U/L (4-49); AST 20 U/L (17-59); African American GFR (CKD) >90 (>60 ml/min/1.73 sqM); Albumin 4.2 g/dL (3.5-5.0); Albumin/Globulin Ratio 1.2; Alkaline Phosphatase 123 U/L (38-126); Anion Gap 11 mmol/L; Blood Urea Nitrogen 21 mg/dL (9-20); Calcium 9.7 mg/dL (8.4-10.2); Carbon Dioxide 23 mmol/L (22-30); Chloride 105 mmol/L (98-107); Globulin 3.4 g/dL; Glucose 261 mg/dL (74-99); Non-African American GFR(CKD) >90 (>60 ml/min/1.73 sqM); Sodium 139 mmol/L (137-145); Total Bilirubin 1.1 mg/dL (0.2-1.3); Total Protein 7.6 g/dL (6.3-8.2)
--- NOTE | 2020-06-03 15:15 | CDI ---
Documentation Clarification Form Date: 06/03/2020 02:59:31 PM From: Sahara CruzRajputLEWIS ibanez, CCDS Admit Date: 05/31/2020 08:04:00 PM Patient Name: Rachael Arango Visit Number: [id number] Discharge Date: ATTENTION: The Clinical Documentation Specialists (CDI) and [facility] Coding Staff appreciate your assistance in clarifying documentation. Please respond to the clarification below the line at the bottom and electronically sign. The CDI & [facility] Coding staff will review the response and follow-up if needed. Please note: Queries are made part of the Legal Health Record. If you have any questions, please contact the author of this message via ITS. Dr. Rafiq Mendoza: Possible Sepsis is documented in the 05/31 History & Physical with no further documentation. History/Risk Factors: Morbidly Obesity, BMI 58.3, OHS, EZEQUIEL, Childhood Asthma and Bronchitis, NIDM II, Hyperlipidemia, Hypertension, Osteoarthritis, Previous Pneumonia, Clinical Indicators: Presented to the ED on 05/31 with SOB, cough & congestion for several days, wheezy & occasional chest pain. ED Impression: SOB and Pneumonia. 05/31 VS: T 98.6, P 110^, R 18 - 50^ (SOB, labored), BP 119/73 - 175/113; PO 95 RA - 96 4Lnc - BiPAP <24 hrs. 05/31 LAB: WBC 13.9^, Neut 10.0^, Glucose 150^, Lactic Acid 2.2^^, Alk Phos 144^ 05/31 COVID Negative, Influenza Type A/B Negative, Legionella Urine: Negative 05/31 Blood Culture Neg x48 Hrs (Preliminary); Repeat (Preliminary): Coagulase Neg Staph, Diphtheroid species; Repeat Blood Cultures: negative @ 24 hours. Treatment: IV Apresoline, INH Ventolin, IV Solumedrol, IV Ativan, I Azithromycin, IV fluid 1,000 mls @ 75 mls/hr q13H, IV Rocephin, IV Levaquin. 06/01: I Decadron, IV Vancomycin (now dcd'd) 06/01 Pulmonary Consult: Acute Hypoxic Respiratory Failure related to acute bibasilar community acquired pneumonia, COVID ruled out. Blood culture possible contamination. 06/01 Infectious Disease Consult: Bilateral Pneumonia: Blood cultures repeated. In your professional opinion, please clarify if these findings signify one of the following conditions, whether the condition is POA, and cause, if known: Sepsis ruled in: Without Severe Sepsis Present on Admission o Yes Identify the (suspected) organism___GRAM POSITIVE COCCI__ (Last Revision: August 2017) MTDD
[2020-06-03 16:47] LABS: Glucose,Whole Blood 233 mg/dL (75-99)
[2020-06-03] MEDS: hydrALAZINE HCL 10 MG TAB PO SCH ×2 (19:39→21:25)
[2020-06-03 20:12] LABS: Glucose,Whole Blood 186 mg/dL (75-99)
[2020-06-03] MEDS ORDERED: LEVOFLOXACIN 500 MG TAB PO SCH (21:00)
[2020-06-03] MEDS: ATORVASTATIN 40 MG TAB PO SCH (21:24)
[2020-06-03] MEDS: traZODone HCL 50 MG TAB PO SCH (21:24)
[2020-06-03] MEDS: diphenhydrAMINE 50 MG CAP PO SCH (21:24)
[2020-06-03] MEDS: ALPRAZolam 1 MG TAB PO SCH (21:25)
[2020-06-03] MEDS: ARIPiprazole 10 MG TAB PO SCH (21:25)
--- NOTE | 2020-06-03 22:30 | PN ---
PROGRESS NOTE DATE OF SERVICE: 06/03/2020 REASON FOR FOLLOWUP: Pneumonia and bacteremia. INTERVAL HISTORY: Patient is currently afebrile. Patient is breathing more comfortably. The patient denies having any chest pain or shortness with minimal cough. No nausea. No vomiting. No abdominal pain. No diarrhea. PHYSICAL EXAMINATION: Blood pressure 150/84 with a pulse of 101, temperature 98.1. He is 96% on room air. General description is a middle-aged male lying in bed in no distress. Respiratory system: Unlabored breathing, decreased breath sounds. No wheeze. Heart S1, S2. Regular rate and rhythm. Abdomen soft, no tenderness. LABS: Hemoglobin 16.2, white count 18.0, BUN of 21, creatinine 1.01. Vanco trough is 20.8. Blood culture with coagulase negative staph and ( ) species. DIAGNOSTIC IMPRESSION AND PLAN: Patient admitted to hospital with shortness of breath and cough and has been diagnosed with pneumonia, possible community-acquired. Positive blood culture with coagulase negative staph and ( ), likely contamination. Vancomycin discontinued. Patient is on Levaquin. Plan to finish therapy with oral Levaquin and continue supportive care. MMODL / IJN: [id number] /
[2020-06-04 02:30] LABS: Mycoplasma IgG Antibody (EIA) 1.36 INDEX (<=0.90); Mycoplasma IgM Antibody 0.25 INDEX (<=0.90)
[2020-06-04 05:11] VITALS: BP 149/100; PULSE 108; RESP 24; TEMP 98
[2020-06-04 06:34] LABS: ALT 27 U/L (4-49); AST 24 U/L (17-59); African American GFR (CKD) >90 (>60 ml/min/1.73 sqM); Albumin 3.9 g/dL (3.5-5.0); Albumin/Globulin Ratio 1.1; Alkaline Phosphatase 97 U/L (38-126); Anion Gap 6 mmol/L; Blood Urea Nitrogen 19 mg/dL (9-20); Calcium 9.1 mg/dL (8.4-10.2); Carbon Dioxide 28 mmol/L (22-30); Chloride 103 mmol/L (98-107); Globulin 3.4 g/dL; Glucose 194 mg/dL (74-99); Non-African American GFR(CKD) >90 (>60 ml/min/1.73 sqM); Potassium 4.6 mmol/L (3.5-5.1); Sodium 137 mmol/L (137-145); Total Bilirubin 1.1 mg/dL (0.2-1.3); Total Protein 7.3 g/dL (6.3-8.2)
[2020-06-04 06:49] LABS: Anisocytosis Slight; Basophils # (A) 0.1 k/uL (0-0.2); Basophils % (A) 1 %; Eosinophils # (A) 0.2 k/uL (0-0.7); Eosinophils % (A) 1 %; HCT 52.1 % (39.0-53.0); HGB 16.1 gm/dL (13.0-17.5); Hypochromasia Moderate; Lymphocytes # (A) 2.9 k/uL (1.0-4.8); Lymphocytes % (A) 16 %; MCH 22.9 pg (25.0-35.0); MCHC 30.8 g/dL (31.0-37.0); MCV 74.1 fL (80.0-100.0); Mean Platelet Volume 8.5; Microcytosis Moderate; Monocytes # (A) 0.7 k/uL (0-1.0); Monocytes % (A) 4 %; Neutrophils # (A) 13.4 k/uL (1.3-7.7); Neutrophils % (A) 77 %; Platelet Count 419 k/uL (150-450); RDW 18.1 % (11.5-15.5); WBC 17.5 k/uL (3.8-10.6)
[2020-06-04 06:58] LABS: RBC 7.02 m/uL (4.30-5.90)
[2020-06-04 07:11] LABS: Glucose,Whole Blood 148 mg/dL (75-99)
[2020-06-04] MEDS: ALBUTEROL HFA INHALER INHALATION SCH ×2 (09:05→11:56)
[2020-06-04] MEDS: ENOXAPARIN 40 MG/0.4 ML SYRINGE SQ SCH (09:20)
[2020-06-04] MEDS: CHOLECALCIFEROL 1,000 UNIT TAB PO SCH (09:21)
[2020-06-04] MEDS: METOPROLOL TARTRATE 50 MG TAB PO SCH (09:21)
[2020-06-04] MEDS: amLODIPine 10 MG TAB PO SCH (09:21)
[2020-06-04] MEDS: PANTOPRAZOLE 40 MG TABLET PO SCH (09:21)
[2020-06-04] MEDS: CYCLOBENZAPRINE 10 MG TAB PO SCH (09:21)
[2020-06-04] MEDS: LOSARTAN 50 MG TAB PO SCH (09:22)
[2020-06-04] MEDS: FOLIC ACID 1 MG TAB PO SCH (09:22)
[2020-06-04] MEDS: ALPRAZolam 1 MG TAB PO PRN (09:23)
[2020-06-04] MEDS: DEXAMETHASONE SOD PHOSPHATE 10 MG/ML 1 ML VIAL IV SCH (09:24)
[2020-06-04] MEDS: INSULIN ASPART (NovoLOG) 100 UNIT/ML VIAL SQ SCH (09:24)
[2020-06-04] MEDS: hydrALAZINE HCL 10 MG TAB PO SCH ×2 (09:25→12:39)
[2020-06-04 10:58] LABS: Glucose,Whole Blood 166 mg/dL (75-99)
--- NOTE | 2020-06-04 15:24 | P.PN ---
Subjective Progress Note Date: 06/04/20 HISTORY OF PRESENT ILLNESS This is a 35-year-old male treated for pneumonia and bacteremia. Blood culture positive for coag-negative staph and likely contamination. Vancomycin has been discontinued and patient continued on Levaquin. Plan is for patient to continue course of oral Levaquin at discharge. We'll plan to order a repeat blood culture and patient will follow-up regarding results. Patient is afebrile, heart rate 108, blood pressure 149/100, pulse ox 95% on room air. WBC 17.5. Creatinine 0.88. PHYSICAL EXAMINATION Gen: This is a 35-year-old male patient, sitting in a chair. HEENT: Head is atraumatic, normocephalic. Pupils equal, round. Sclerae is anicteric. NECK: Supple. No JVD. No lymphadenopathy. LUNGS: Decreased breath sounds. No wheezes. No intercostal retractions. HEART: Regular rate and rhythm. No murmur. ABDOMEN: Soft. Bowel sounds are present. No masses. No tenderness. EXTREMITIES: No pedal edema. No calf tenderness. NEUROLOGICAL: Patient is awake, alert and oriented x3. ASSESSMENT Pneumonia Positive blood culture, most likely contamination PLAN Levaquin for 7 day course Follow-up with PCP for results of repeat blood culture. Patient is clear for discharge from infectious disease. The above dictated assessment and findings were discussed with Dr. Howard. The impression and plan of care have been directed as dictated. Marcy Frausto nurse practitioner acting as scribe for Dr. Howard. Objective - Vital Signs Vital signs: Vital Signs Temp 98.0 F 06/04/20 05:00 Pulse 108 H 06/04/20 05:00 Resp 24 06/04/20 05:00 BP 149/100 06/04/20 05:00 Pulse Ox 95 06/04/20 05:00 Intake & Output 06/03/20 06/04/20 06/04/20 18:59 06:59 18:59 Intake Total 1025 590 Balance 1025 590 Intake: Intake, IV Titration 1025 Amount Sodium Chloride 0.9% 1, 525 000 ml @ 75 mls/hr IV . [id number] JEFFREY Rx#:[id number] Vancomycin 2,500 mg In 500 Sodium Chloride 0.9% 500 ml 500 ml @ 167 mls/hr IVPB Q8H JEFFREY Rx#: [id number] Oral 590 Other: Voiding Method Toilet Toilet Toilet # Voids 2 - Labs CBC & Chem 7: 06/04/20 05:31 06/04/20 05:31 Labs: Abnormal Lab Results - Last 24 Hours (Table) 05/31/20 06/03/20 06/03/20 Range/Units 20:21 13:18 13:18 WBC 18.0 H (3.8-10.6) k/uL RBC 6.97 H (4.30-5.90) m/uL MCV 74.2 L (80.0-100.0) fL MCH 23.5 L (25.0-35.0) pg MCHC (31.0-37.0) g/dL RDW 17.9 H (11.5-15.5) % Neutrophils # 16.0 H (1.3-7.7) k/uL BUN 21 H (9-20) mg/dL Glucose 261 H (74-99) mg/dL POC Glucose (mg/dL) (75-99) mg/dL Mycoplasma pneumon IgG 1.36 H (<=0.90) INDEX 06/03/20 06/03/20 06/04/20 Range/Units 16:45 20:10 05:31 WBC 17.5 H (3.8-10.6) k/uL RBC 7.02 H (4.30-5.90) m/uL MCV 74.1 L (80.0-100.0) fL MCH 22.9 L (25.0-35.0) pg MCHC 30.8 L (31.0-37.0) g/dL RDW 18.1 H (11.5-15.5) % Neutrophils # 13.4 H (1.3-7.7) k/uL BUN (9-20) mg/dL Glucose (74-99) mg/dL POC Glucose (mg/dL) 233 H 186 H (75-99) mg/dL Mycoplasma pneumon IgG (<=0.90) INDEX 06/04/20 06/04/20 06/04/20 Range/Units 05:31 07:05 10:54 WBC (3.8-10.6) k/uL RBC (4.30-5.90) m/uL MCV (80.0-100.0) fL MCH (25.0-35.0) pg MCHC (31.0-37.0) g/dL RDW (11.5-15.5) % Neutrophils # (1.3-7.7) k/uL BUN (9-20) mg/dL Glucose 194 H (74-99) mg/dL POC Glucose (mg/dL) 148 H 166 H (75-99) mg/dL Mycoplasma pneumon IgG (<=0.90) INDEX Microbiology - Last 24 Hours (Table) 05/31/20 18:00 Blood Culture Gram Stain - Final Blood Blood Culture - Final Coagulase Negative Staph Diphtheroid species 06/01/20 20:44 Blood Culture Gram Stain - Preliminary Blood 06/01/20 20:44 Blood Culture - Final Blood 05/31/20 15:07 Blood Culture - Preliminary Blood No Growth after 72 hours
--- NOTE | 2020-06-04 17:19 | P.DS ---
Providers Date of admission: 05/31/20 20:04 Expected date of discharge: 06/04/20 Attending physician: Rafiq Mendoza Consults: 05/31/20 20:09 Consult Physician Routine Consulting Provider: Shyann Howard Consult Reason/Comments: covid?? Do you want consulting provider notified?: Yes Consult Physician Stat Consulting Provider: Jed Samano Consult Reason/Comments: Pneumonia Do you want consulting provider notified?: Yes 05/31/20 20:10 Consult Physician Routine Consulting Provider: Jed Samano Consult Reason/Comments: pneumonia Do you want consulting provider notified?: Yes Primary care physician: Rafiq Mendoza Hospital Course: 35-year-old -Wel[place] male was admitted to the hospital due to shortness of breath, cough, fever, and generalized malaise. Patient extensive diagnostic workup in the emergency department revealing bilateral lower lobe infiltrates indicated of of pneumonia with clinical signs and symptoms. Consulted infectious disease and pulmonary critical care for recommendations and treatment plan. Patient received broad-spectrum IV antibiotics, steroids, and vitamins to maximize therapy. Patient had elevated blood pressure, added him hydrazine 10 mg PO daily for patients regimen. Patient arm stable from a medical standpoint. Assessment: Pneumonia hypertension diabetes type II mellitus [id number] obesity chronic pain four code Health Concerns: Medication compliance Pertinent Studies: cta chest cxr Procedures: none noted Patient Condition at Discharge: Fair Plan - Discharge Summary Discharge Rx Participant: Yes New Discharge Prescriptions: New Levofloxacin [Levaquin] 750 mg PO DAILY 7 Days #7 tab hydrALAZINE HCL [Apresoline] 10 mg PO QID #90 tab hydrALAZINE HCL 10 mg PO DAILY #30 tablet Continue amLODIPine [Norvasc] 10 mg PO DAILY Cyclobenzaprine [Flexeril] 10 mg PO BID Testosterone Cypionate [Depo-Testosterone] 300 mg IM Q14D Losartan Potassium 100 mg PO DAILY Furosemide [Lasix] 20 mg PO DAILY PRN PRN Reason: Edema Atorvastatin [Lipitor] 40 mg PO HS ARIPiprazole [Abilify] 10 mg PO HS traZODone HCL 150 mg PO HS Metoprolol Tartrate [Lopressor] 50 mg PO BID Cholecalciferol [Vitamin D3 (25 Mcg = 1000 Iu)] 2,000 unit PO DAILY metFORMIN HCL [Glucophage] 1,000 mg PO BID ALPRAZolam [Xanax] 1 mg PO BID PRN PRN Reason: Anxiety ALPRAZolam [Xanax] 1 mg PO HS Albuterol Sulfate [Proair Hfa] 1 - 2 puff INHALATION RT-Q4H PRN PRN Reason: Shortness Of Breath diphenhydrAMINE [Benadryl] 100 mg PO HS Discontinued Cefdinir 300 mg PO Q12H Discharge Medication List amLODIPine [Norvasc] 10 mg PO DAILY 02/04/16 [History] Cyclobenzaprine [Flexeril] 10 mg PO BID 06/29/18 [History] ARIPiprazole [Abilify] 10 mg PO HS 08/06/19 [History] Atorvastatin [Lipitor] 40 mg PO HS 08/06/19 [History] Furosemide [Lasix] 20 mg PO DAILY PRN 08/06/19 [History] Losartan Potassium 100 mg PO DAILY 08/06/19 [History] Testosterone Cypionate [Depo-Testosterone] 300 mg IM Q14D 08/06/19 [History] ALPRAZolam [Xanax] 1 mg PO BID PRN 05/31/20 [History] ALPRAZolam [Xanax] 1 mg PO HS 05/31/20 [History] Albuterol Sulfate [Proair Hfa] 1 - 2 puff INHALATION RT-Q4H PRN 05/31/20 [History] Cholecalciferol [Vitamin D3 (25 Mcg = 1000 Iu)] 2,000 unit PO DAILY 05/31/20 [History] Metoprolol Tartrate [Lopressor] 50 mg PO BID 05/31/20 [History] diphenhydrAMINE [Benadryl] 100 mg PO HS 05/31/20 [History] metFORMIN HCL [Glucophage] 1,000 mg PO BID 05/31/20 [History] traZODone HCL 150 mg PO HS 05/31/20 [History] Levofloxacin [Levaquin] 750 mg PO DAILY 7 Days #7 tab 06/03/20 [Rx] hydrALAZINE HCL 10 mg PO DAILY #30 tablet 06/04/20 [Rx] hydrALAZINE HCL [Apresoline] 10 mg PO QID #90 tab 06/04/20 [Rx] Follow up Appointment(s)/Referral(s): Rafiq Mendoza MD [Primary Care Provider] - 06/07/20 11:30 am () Ruby Pugh MD [STAFF PHYSICIAN] - 07/09/20 9:15 am Patient Instructions/Handouts: Hydralazine (By mouth), Levofloxacin (By mouth), Hypertension (DC), Pneumonia (DC), Shortness of Breath (DC) Discharge Disposition: HOME SELF-CARE
== END 2020-06-04 13:03 | disposition home or self-care (01) | DRG 871 ==
LOC: EC 13:49 → 4SSUR 20:04 → 6NMEDSUR 06-01 13:05
PROVIDERS: ADMIT Family Medicine; ATTEND Family Medicine
PROC: 5A09357 Assistance with Respiratory Ventilation, Less than 24 Consecutive Hours, Continuous Positive Airway Pressure (ICD-10-PCS; principal; 2020-05-31)
DX: A40.9 Streptococcal sepsis, unspecified (principal); J13 Pneumonia due to Streptococcus pneumoniae; J96.01 Acute respiratory failure with hypoxia; J84.9 Interstitial pulmonary disease, unspecified; Z68.43 Body mass index [BMI] 50.0-59.9, adult; J98.11 Atelectasis; D75.89 Other specified diseases of blood and blood-forming organs; E11.9 Type 2 diabetes mellitus without complications; E66.01 Morbid (severe) obesity due to excess calories; E78.5 Hyperlipidemia, unspecified; F32.9 Major depressive disorder, single episode, unspecified; F41.9 Anxiety disorder, unspecified; G89.29 Other chronic pain; I11.9 Hypertensive heart disease without heart failure; J42 Unspecified chronic bronchitis; K21.9 Gastro-esophageal reflux disease without esophagitis; Z20.822 Contact with and (suspected) exposure to COVID-19; Z79.84 Long term (current) use of oral hypoglycemic drugs; Z79.899 Other long term (current) drug therapy; Z87.01 Personal history of pneumonia (recurrent); G47.33 Obstructive sleep apnea (adult) (pediatric); Z99.89 Dependence on other enabling machines and devices; Z87.09 Personal history of other diseases of the respiratory system; Z87.891 Personal history of nicotine dependence; I44.7 Left bundle-branch block, unspecified; K44.9 Diaphragmatic hernia without obstruction or gangrene; Z88.1 Allergy status to other antibiotic agents; Z91.030 Bee allergy status
CPT/HCPCS: 36415; 71045; 71046; 71275; 80053; 80202; 82728; 83605; 83615; 83735; 84145; 84484; 85025; 85379; 85610; 85730; 86140; 86738; 87040; 87449; 87502; 87635; 93005; 94640; 94660; 96365; 96367; 96375; 96376; 99285

== ENCOUNTER → 2020-05-31 | Outpatient (CLI) | payer OTHER | END | disposition home or self-care (01) | LOC: LABWHC1 13:20 | PROVIDERS: ATTEND Nurse Practitioner | DX: Z03.89 Encounter for observation for other suspected diseases and conditions ruled out (principal) | CPT/HCPCS: U0003; C9803 ==

== ENCOUNTER 2020-08-26 11:00 | Inpatient (IN) | payer OTHER ==
[2020-08-26] MEDS ORDERED: methylPREDNISolone SOD SUCCI 125 MG/2 ML VIAL IV STA (11:22)
[2020-08-26] MEDS ORDERED: ALBUTEROL NEBULIZED 2.5 MG/3 ML INHALATION STA (11:22)
[2020-08-26] MEDS ORDERED: IPRATROPIUM 0.5 MG/2.5 ML NEBU INHALATION STA (11:22)
--- NOTE | 2020-08-26 11:27 | ED ---
General Adult HPI - General Chief complaint: Shortness of Breath Stated complaint: STEVE Time Seen by Provider: 08/26/20 11:05 Source: patient, RN notes reviewed, old records reviewed Mode of arrival: ambulatory Limitations: no limitations - History of Present Illness Initial comments: This is a 35-year-old male who has a past medical history significant for asthma. Patient states she's also been tested recently for: A was negative. Patient states he comes in today because since Sunday he's had difficulty breathing is gotten progressively worse. Patient states today he just couldn't handle it anymore and he came to the emergency department. Patient denies any fever chills. Patient denies chest pain or palpitations. Patient denies coughing up any sputum. Patient denies any swelling to the legs or calf tenderness. Patient denies any heart issues. Patient denies any lightheadedness or dizziness. - Related Data Home Medications Medication Instructions Recorded Confirmed amLODIPine [Norvasc] 10 mg PO DAILY 02/04/16 08/26/20 Cyclobenzaprine [Flexeril] 10 mg PO BID 06/29/18 08/26/20 ARIPiprazole [Abilify] 10 mg PO HS 08/06/19 08/26/20 Atorvastatin [Lipitor] 40 mg PO HS 08/06/19 08/26/20 Furosemide [Lasix] 20 mg PO DAILY PRN 08/06/19 08/26/20 Losartan Potassium 100 mg PO DAILY 08/06/19 08/26/20 Testosterone Cypionate 300 mg IM Q14D 08/06/19 08/26/20 [Depo-Testosterone] ALPRAZolam [Xanax] 1 mg PO BID PRN 05/31/20 08/26/20 ALPRAZolam [Xanax] 1 mg PO HS 05/31/20 08/26/20 Albuterol Sulfate [Proair Hfa] 1 - 2 puff INHALATION RT-Q4H PRN 05/31/20 08/26/20 Cholecalciferol [Vitamin D3 (25 50 mcg PO DAILY 05/31/20 08/26/20 Mcg = 1000 Iu)] diphenhydrAMINE [Benadryl] 100 mg PO HS 05/31/20 08/26/20 metFORMIN HCL [Glucophage] 1,000 mg PO BID 05/31/20 08/26/20 traZODone HCL 150 mg PO HS 05/31/20 08/26/20 Glimepiride [Amaryl] 1 mg PO BID 08/26/20 08/26/20 Metoprolol Tartrate [Lopressor] 25 mg PO BID 08/26/20 08/26/20 hydrOXYzine pamoate [Vistaril] 25 - 50 mg PO DAILY PRN 08/26/20 08/26/20 Allergies Allergy/AdvReac Type Severity Reaction Status Date / Time erythromycin base Allergy Unknown Verified 08/26/20 12:03 Review of Systems ROS Statement: Those systems with pertinent positive or pertinent negative responses have been documented in the HPI. ROS Other: All systems not noted in ROS Statement are negative. Past Medical History Past Medical History: Asthma, Diabetes Mellitus, Hyperlipidemia, Hypertension, Osteoarthritis (OA), Pneumonia Additional Past Medical History / Comment(s): NIDDM type II, EZEQUIEL with Cpap use- pt has difficulty tolerating, L carpal tunnel syndrome, chronic low back pain, athrtitis bilateral hands, asthma as a child, bronchitis, LBBB, hiatal hernia at , antral polyp, hemorrhoids, obesity History of Any Multi-Drug Resistant Organisms: None Reported Past Surgical History: No Surgical Hx Reported Additional Past Surgical History / Comment(s): EGD, colonoscopy 10 years ago Past Anesthesia/Blood Transfusion Reactions: No Reported Reaction Past Psychological History: Anxiety, Depression Smoking Status: Former smoker Past Alcohol Use History: None Reported Past Drug Use History: None Reported - Past Family History Father History Unknown: Yes Additional Family Medical History / Comment(s): Pt has never met his father. Mother Additional Family Medical History / Comment(s): Mother is a 2 ppd smoker. Pt does not know her medical hx. General Exam - General Exam Comments Initial Comments: GENERAL: Patient is well-developed and well-nourished. Patient is nontoxic and well- hydrated and is in moderate respiratory distress. Patient is also very diaphoretic ENT: Neck is soft and supple. No significant lymphadenopathy is noted. Oropharynx is clear. Moist mucous membranes. Neck has full range of motion without eliciting any pain. EYES: The sclera were anicteric and conjunctiva were pink and moist. Extraocular movements were intact and pupils were equal round and reactive to light. Eyelids were unremarkable. PULMONARY: Patient is tachypneic and the breath sounds are diminished with some expiratory wheezing CARDIOVASCULAR: There is a regular rate and rhythm without any murmurs gallops or rubs. ABDOMEN: Soft and nontender with normal bowel sounds. SKIN: Skin is clear with no lesions or rashes and otherwise unremarkable. NEUROLOGIC: Patient is alert and oriented x3. Cranial nerves II through XII are grossly intact. Motor and sensory are also intact. Normal speech, volume and content. Symmetrical smile. MUSCULOSKELETAL: Normal extremities with adequate strength and full range of motion. No lower extremity swelling or edema. No calf tenderness. LYMPHATICS: No significant lymphadenopathy is noted PSYCHIATRIC: Normal psychiatric evaluation. Limitations: no limitations Course Vital Signs 08/26/20 08/26/20 08/26/20 11:07 11:28 11:37 Temperature 98.3 F Pulse Rate 117 H 118 H 121 H Respiratory 38 H 80 H Rate Blood Pressure 144/65 O2 Sat by Pulse 49 L 94 L Oximetry 08/26/20 08/26/20 08/26/20 11:52 11:54 12:50 Temperature Pulse Rate 123 H 123 H 121 H Respiratory 80 H 70 H Rate Blood Pressure O2 Sat by Pulse 75 L 68 L Oximetry 08/26/20 08/26/20 13:32 13:49 Temperature Pulse Rate 121 H 123 H Respiratory 80 H 68 H Rate Blood Pressure 107/80 O2 Sat by Pulse 73 L 71 L Oximetry Procedures - Intubation Sedative: Versed Paralytic: Succinylcholine Laryngoscope: Huffman Size: 3 ET Tube Size: 8 Tube Secured Location: teeth Tube Placement Confirmation: visualized tube passing through cords, equal breath sounds bilaterally, no breath sounds over epigastrium, confirmation by capnometry Patient Tolerated Procedure: well Intubation Complications: none Medical Decision Making - Medical Decision Making EKG shows sinus tachycardia at 117 bpm RI interval is 186 QRS is 100 QT interval 322 QTC is 449. EKG shows T-wave inversion in lead 3. No ST segment elevation is noted Patient was placed on BiPAP immediately. Patient's ABG showed a pH of 7.4 pCO2 of 36 pO2 of 33.6 bicarb 22.9 and a O2 sat of 64%. I spoke with Dr. Samano and he wanted the patient intubated however patient refused to be intubated. Chest x-ray shows diffuse pneumonia. Patient is positive for COVID. - Lab Data Result diagrams: 08/26/20 11:28 08/26/20 11:28 Lab Results 08/26/20 08/26/20 08/26/20 Range/Units 11:28 11:28 11:28 WBC 11.5 H (3.8-10.6) k/uL RBC 7.02 H (4.30-5.90) m/uL Hgb 17.1 (13.0-17.5) gm/dL Hct 54.3 H (39.0-53.0) % MCV 77.3 L (80.0-100.0) fL MCH 24.4 L (25.0-35.0) pg MCHC 31.6 (31.0-37.0) g/dL RDW 16.8 H (11.5-15.5) % Plt Count 257 (150-450) k/uL MPV 9.5 Neutrophils % 89 % Lymphocytes % 7 % Monocytes % 3 % Eosinophils % 0 % Basophils % 0 % Neutrophils # 10.2 H (1.3-7.7) k/uL Lymphocytes # 0.9 L (1.0-4.8) k/uL Monocytes # 0.3 (0-1.0) k/uL Eosinophils # 0.0 (0-0.7) k/uL Basophils # 0.0 (0-0.2) k/uL Hypochromasia Moderate Anisocytosis Slight Microcytosis Slight PT 11.2 (9.0-12.0) sec INR 1.1 (<1.2) APTT 27.6 (22.0-30.0) sec D-Dimer 0.28 (<0.60) mg/L FEU ABG pH (7.35-7.45) ABG pCO2 (35-45) mmHg ABG pO2 (83-108) mmHg ABG HCO3 (21-25) mmol/L ABG Total CO2 (19-24) mmol/L ABG O2 Saturation (94-97) % ABG Base Excess mmol/L Jeovanny Test Sodium 142 (137-145) mmol/L Potassium 5.0 (3.5-5.1) mmol/L Chloride 107 (98-107) mmol/L Carbon Dioxide 18 L (22-30) mmol/L Anion Gap 17 mmol/L BUN 29 H (9-20) mg/dL Creatinine 1.25 (0.66-1.25) mg/dL Est GFR (CKD-EPI)AfAm 86 (>60 ml/min/1.73 sqM) Est GFR (CKD-EPI)NonAf 74 (>60 ml/min/1.73 sqM) Glucose 131 H (74-99) mg/dL Plasma Lactic Acid Estevan (0.7-2.0) mmol/L Calcium 9.0 (8.4-10.2) mg/dL Magnesium 2.3 (1.6-2.3) mg/dL Total Bilirubin 0.9 (0.2-1.3) mg/dL AST 52 (17-59) U/L ALT 31 (4-49) U/L Alkaline Phosphatase 149 H (38-126) U/L Troponin I (0.000-0.034) ng/mL NT-Pro-B Natriuret Pep pg/mL Total Protein 7.6 (6.3-8.2) g/dL Albumin 4.0 (3.5-5.0) g/dL Coronavirus (PCR) (Not Detectd) 08/26/20 08/26/20 08/26/20 Range/Units 11:28 11:28 11:28 WBC (3.8-10.6) k/uL RBC (4.30-5.90) m/uL Hgb (13.0-17.5) gm/dL Hct (39.0-53.0) % MCV (80.0-100.0) fL MCH (25.0-35.0) pg MCHC (31.0-37.0) g/dL RDW (11.5-15.5) % Plt Count (150-450) k/uL MPV Neutrophils % % Lymphocytes % % Monocytes % % Eosinophils % % Basophils % % Neutrophils # (1.3-7.7) k/uL Lymphocytes # (1.0-4.8) k/uL Monocytes # (0-1.0) k/uL Eosinophils # (0-0.7) k/uL Basophils # (0-0.2) k/uL Hypochromasia Anisocytosis Microcytosis PT (9.0-12.0) sec INR (<1.2) APTT (22.0-30.0) sec D-Dimer (<0.60) mg/L FEU ABG pH (7.35-7.45) ABG pCO2 (35-45) mmHg ABG pO2 (83-108) mmHg ABG HCO3 (21-25) mmol/L ABG Total CO2 (19-24) mmol/L ABG O2 Saturation (94-97) % ABG Base Excess mmol/L Jeovanny Test Sodium (137-145) mmol/L Potassium (3.5-5.1) mmol/L Chloride (98-107) mmol/L Carbon Dioxide (22-30) mmol/L Anion Gap mmol/L BUN (9-20) mg/dL Creatinine (0.66-1.25) mg/dL Est GFR (CKD-EPI)AfAm (>60 ml/min/1.73 sqM) Est GFR (CKD-EPI)NonAf (>60 ml/min/1.73 sqM) Glucose (74-99) mg/dL Plasma Lactic Acid Estevan 3.3 H* (0.7-2.0) mmol/L Calcium (8.4-10.2) mg/dL Magnesium (1.6-2.3) mg/dL Total Bilirubin (0.2-1.3) mg/dL AST (17-59) U/L ALT (4-49) U/L Alkaline Phosphatase (38-126) U/L Troponin I 0.019 (0.000-0.034) ng/mL NT-Pro-B Natriuret Pep pg/mL Total Protein (6.3-8.2) g/dL Albumin (3.5-5.0) g/dL Coronavirus (PCR) Detected A (Not Detectd) 08/26/20 08/26/20 Range/Units 11:28 12:47 WBC (3.8-10.6) k/uL RBC (4.30-5.90) m/uL Hgb (13.0-17.5) gm/dL Hct (39.0-53.0) % MCV (80.0-100.0) fL MCH (25.0-35.0) pg MCHC (31.0-37.0) g/dL RDW (11.5-15.5) % Plt Count (150-450) k/uL MPV Neutrophils % % Lymphocytes % % Monocytes % % Eosinophils % % Basophils % % Neutrophils # (1.3-7.7) k/uL Lymphocytes # (1.0-4.8) k/uL Monocytes # (0-1.0) k/uL Eosinophils # (0-0.7) k/uL Basophils # (0-0.2) k/uL Hypochromasia Anisocytosis Microcytosis PT (9.0-12.0) sec INR (<1.2) APTT (22.0-30.0) sec D-Dimer (<0.60) mg/L FEU ABG pH 7.41 (7.35-7.45) ABG pCO2 36 (35-45) mmHg ABG pO2 34 L* (83-108) mmHg ABG HCO3 23 (21-25) mmol/L ABG Total CO2 24 (19-24) mmol/L ABG O2 Saturation 63.9 L (94-97) % ABG Base Excess -1.8 mmol/L Jeovanny Test Yes Sodium (137-145) mmol/L Potassium (3.5-5.1) mmol/L Chloride (98-107) mmol/L Carbon Dioxide (22-30) mmol/L Anion Gap mmol/L BUN (9-20) mg/dL Creatinine (0.66-1.25) mg/dL Est GFR (CKD-EPI)AfAm (>60 ml/min/1.73 sqM) Est GFR (CKD-EPI)NonAf (>60 ml/min/1.73 sqM) Glucose (74-99) mg/dL Plasma Lactic Acid Estevan (0.7-2.0) mmol/L Calcium (8.4-10.2) mg/dL Magnesium (1.6-2.3) mg/dL Total Bilirubin (0.2-1.3) mg/dL AST (17-59) U/L ALT (4-49) U/L Alkaline Phosphatase (38-126) U/L Troponin I (0.000-0.034) ng/mL NT-Pro-B Natriuret Pep 29 pg/mL Total Protein (6.3-8.2) g/dL Albumin (3.5-5.0) g/dL Coronavirus (PCR) (Not Detectd) Critical Care Time Critical Care Time: Yes Total Critical Care Time: 35 Disposition Clinical Impression: Pneumonia due to COVID-19 virus, Respiratory distress Disposition: ADMITTED IP TO THIS HOSP Referrals: Asad Espinosa MD [Primary Care Provider] - 1-2 days Time of Disposition: 13:46
[2020-08-26 11:43] LABS: Anisocytosis Slight; Basophils % (A) 0 %; Eosinophils % (A) 0 %; HCT 54.3 % (39.0-53.0); HGB 17.1 gm/dL (13.0-17.5); Hypochromasia Moderate; Lymphocytes # (A) 0.9 k/uL (1.0-4.8); Lymphocytes % (A) 7 %; MCH 24.4 pg (25.0-35.0); MCHC 31.6 g/dL (31.0-37.0); MCV 77.3 fL (80.0-100.0); Mean Platelet Volume 9.5; Microcytosis Slight; Monocytes # (A) 0.3 k/uL (0-1.0); Monocytes % (A) 3 %; Neutrophils # (A) 10.2 k/uL (1.3-7.7); Neutrophils % (A) 89 %; Platelet Count 257 k/uL (150-450); RDW 16.8 % (11.5-15.5); WBC 11.5 k/uL (3.8-10.6)
[2020-08-26] MEDS ORDERED: LORazepam 2 MG/ML INJ IV STA (11:49)
[2020-08-26 12:10] LABS: Total Bilirubin 0.9 mg/dL (0.2-1.3); Total Protein 7.6 g/dL (6.3-8.2)
[2020-08-26 12:12] LABS: RBC 7.02 m/uL (4.30-5.90)
[2020-08-26 12:26] LABS: D-Dimer 0.28 mg/L FEU (<0.60); INR 1.1 (<1.2); Partial Thromboplastin Time 27.6 sec (22.0-30.0); Prothrombin Time 11.2 sec (9.0-12.0)
--- NOTE | 2020-08-26 12:28 | XR ---
EXAMINATION TYPE: XR chest 1V portable DATE OF EXAM: 08/26/2020 COMPARISON: 06/02/2020 INDICATION: Short of breath difficulty breathing TECHNIQUE: Single frontal view of the chest is obtained. FINDINGS: The heart size is normal. The pulmonary vasculature is normal. Patchy infiltrates are present bilaterally are nonspecific and can be related to atypical pneumonia. IMPRESSION: 1. Patchy bilateral infiltrates which can be compatible with atypical pneumonia
[2020-08-26] MEDS ORDERED: DEXAMETHASONE SOD PHOSPHATE 10 MG/ML 1 ML VIAL IV STA (12:31)
[2020-08-26 12:32] LABS: Magnesium 2.3 mg/dL (1.6-2.3)
[2020-08-26 13:07] LABS: ABG Base Excess -1.8 mmol/L; ABG HCO3 23 mmol/L (21-25); ABG Oxygen Saturation 63.9 % (94-97); ABG PCO2 36 mmHg (35-45); ABG PH 7.41 (7.35-7.45); ABG TCO2 24 mmol/L (19-24); Allen Test Performed? Yes
[2020-08-26 13:08] LABS: ABG PO2 34 mmHg (83-108)
[2020-08-26] MEDS: MIDAZOLAM 1 MG/ML 5 ML VIAL IV STA ×2 (13:57→14:43)
[2020-08-26] MEDS ORDERED: NALOXONE 0.4 MG/ML 1 ML VIAL IV PRN (14:03)
[2020-08-26] MEDS: PROPOFOL 10 MG/ML 20 ML VIAL IV STA ×3 (14:05→14:15)
[2020-08-26] MEDS ORDERED: SUCCINYLCHOLINE CHLORIDE VIAL 200 MG/10 ML VIAL IV STA (14:35)
[2020-08-26] MEDS ORDERED: PROPOFOL 10 MG/ML 20 ML VIAL IV ONE (14:46)
--- NOTE | 2020-08-26 15:07 | XR ---
EXAMINATION TYPE: XR chest 1V portable DATE OF EXAM: 08/26/2020 COMPARISON: 08/26/2020 INDICATION: Post intubation, difficulty breathing TECHNIQUE: Single frontal view of the chest is obtained. FINDINGS: Endotracheal tube enters the right main bronchus 1.8 cm. Endotracheal tube should be pulled back at l east 4 cm. The heart size is normal. The pulmonary vasculature is normal. There are large consolidations within the bilateral lungs. Findings are worsening over the interval IMPRESSION: 1. Endotracheal tube tip 1.8 cm within the right mainstem bronchus. This should be pulled back 4 cm. Report was called to the emergency room. The emergency room is aware of the findings endotracheal tub e is already pulled back.
[2020-08-26] MEDS ORDERED: propofoL 100 ML IV ONE (15:27)
[2020-08-26 15:31] LABS: ABG Base Excess -5.2 mmol/L; ABG HCO3 22 mmol/L (21-25); ABG Oxygen Saturation 61.4 % (94-97); ABG PCO2 49 mmHg (35-45); ABG PH 7.26 (7.35-7.45); ABG TCO2 23 mmol/L (19-24); Allen Test Performed? Yes
[2020-08-26 15:34] LABS: ABG PO2 38 mmHg (83-108)
[2020-08-26 15:37] LABS: Glucose,Whole Blood 191 mg/dL (75-99)
[2020-08-26] MEDS ORDERED: CISATRACURIUM 2 MG/ML 5 ML VIAL IV ONE (15:46)
[2020-08-26] MEDS ORDERED: SODIUM CHLORIDE 0.9% 1,000 ML IV ONE ×2 (15:52→22:09)
[2020-08-26] MEDS ORDERED: CISATRACURIUM 200 MG in SODIUM CHLORIDE 0.9% 180 ML IV SCH (16:00)
--- NOTE | 2020-08-26 16:23 | XR ---
History EXAMINATION TYPE: XR chest 1V portable DATE OF EXAM: 08/26/2020 COMPARISON: 08/26/2020 HISTORY: Tube placement TECHNIQUE: Single frontal view of the chest is obtained. FINDINGS: Endotracheal tube is appropriately placed. NG tube is seen coursing into the stomach. Diffuse airspac e infiltrates persist throughout both lung guillen. The cardiac silhouette size is within normal limits. The osseous structures are intact. IMPRESSION: 1. Diffuse airspace infiltrates persist throughout both lung guillen.
[2020-08-26] MEDS ORDERED: TOCILIZUMAB 800 MG in SODIUM CHLORIDE 0.9% 80 ML IV ONE (17:09)
--- NOTE | 2020-08-26 17:13 | P.CNPUL ---
History of Present Illness Consult date: 08/26/20 Requesting physician: Asad Espinosa Reason for consult: dyspnea, abnormal CXR/CT Chief complaint: Shortness of breath, cough, congestion History of present illness: This is a morbidly obese 35-year-old -[place] male patient with a history of obstructive sleep apnea with an AHI of 20 to be on CPAP in the outpatient setting but admits to not wearing it often. He also has a history of hypertension, diabetes Samm, chronic bronchial asthma, chronic bronchitis, anxiety/depression, hyperlipidemia, previous episodes of pneumonia most recently admitted and seen by our group in May 2020. He was treated for community- acquired pneumonia. CoVID 19 was negative. Legionella screen was negative. No pulmonary embolism. He had been doing fairly well until recently when he was developing increasing shortness of breath, cough and congestion. Previous CoVID screen was again negative according to the patient. He came into the emergency room this morning with worsening shortness of breath and significant difficulty in breathing. His CoVID screen is positive. Chest x-ray shows significant patchy bilateral infiltrates compatible with the atypical pneumonia. His initial O2 saturation on room air was 49%. He was placed on BiPAP only improving his saturations in the 70s and low 80s. He was seen and evaluated in consultation in the emergency room. He is in significant respiratory distress. He was subsequently intubated and placed on mechanical ventilator and transferred to the intensive care unit. White count 11.5. Hemoglobin 17.1. Lymphocytes 0.9. Sodium 142. Potassium 5.0. Creatinine 1.25. Initial vent settings are assist-control with a rate of 20, tidal volume 650, FiO2 100% and a PEEP of 10. Follow-up blood gases revealed a PaO2 of 37, P CO2 48, pH 7.26. The patient was breathing above the vent still. He was on propofol at 60 mcg/kg/m. Initiated on Nimbex at 1 mcg/kg/m. Vent changes consisted of increase in the rate of 30, decrease in the tidal volume to 500, continuing 100% FiO2 and increasing the PEEP to 16. Review of Systems ROS unobtainable: due to endotracheal tube Past Medical History Past Medical History: Asthma, Diabetes Mellitus, Hyperlipidemia, Hypertension, Osteoarthritis (OA), Pneumonia Additional Past Medical History / Comment(s): NIDDM type II, EZEQUIEL with Cpap use- pt has difficulty tolerating, L carpal tunnel syndrome, chronic low back pain, athrtitis bilateral hands, asthma as a child, bronchitis, LBBB, hiatal hernia at , antral polyp, hemorrhoids, obesity History of Any Multi-Drug Resistant Organisms: None Reported Past Surgical History: No Surgical Hx Reported Additional Past Surgical History / Comment(s): EGD, colonoscopy 10 years ago Past Anesthesia/Blood Transfusion Reactions: No Reported Reaction Past Psychological History: Anxiety, Depression Smoking Status: Former smoker Past Alcohol Use History: None Reported Past Drug Use History: None Reported - Past Family History Father History Unknown: Yes Additional Family Medical History / Comment(s): Pt has never met his father. Mother Additional Family Medical History / Comment(s): Mother is a 2 ppd smoker. Pt does not know her medical hx. Medications and Allergies Home Medications Medication Instructions Recorded Confirmed Type amLODIPine [Norvasc] 10 mg PO DAILY 02/04/16 08/26/20 History Cyclobenzaprine [Flexeril] 10 mg PO BID 06/29/18 08/26/20 History ARIPiprazole [Abilify] 10 mg PO HS 08/06/19 08/26/20 History Atorvastatin [Lipitor] 40 mg PO HS 08/06/19 08/26/20 History Furosemide [Lasix] 20 mg PO DAILY PRN 08/06/19 08/26/20 History Losartan Potassium 100 mg PO DAILY 08/06/19 08/26/20 History Testosterone Cypionate 300 mg IM Q14D 08/06/19 08/26/20 History [Depo-Testosterone] ALPRAZolam [Xanax] 1 mg PO BID PRN 05/31/20 08/26/20 History ALPRAZolam [Xanax] 1 mg PO HS 05/31/20 08/26/20 History Albuterol Sulfate [Proair Hfa] 1 - 2 puff INHALATION RT-Q4H PRN 05/31/20 08/26/20 History Cholecalciferol [Vitamin D3 (25 50 mcg PO DAILY 05/31/20 08/26/20 History Mcg = 1000 Iu)] diphenhydrAMINE [Benadryl] 100 mg PO HS 05/31/20 08/26/20 History metFORMIN HCL [Glucophage] 1,000 mg PO BID 05/31/20 08/26/20 History traZODone HCL 150 mg PO HS 05/31/20 08/26/20 History Glimepiride [Amaryl] 1 mg PO BID 08/26/20 08/26/20 History Metoprolol Tartrate [Lopressor] 25 mg PO BID 08/26/20 08/26/20 History hydrOXYzine pamoate [Vistaril] 25 - 50 mg PO DAILY PRN 08/26/20 08/26/20 History Allergies Allergy/AdvReac Type Severity Reaction Status Date / Time erythromycin base Allergy Unknown Verified 08/26/20 12:03 Physical Exam Vitals: Vital Signs Temp Pulse Resp BP Pulse Ox 08/26/20 16:20 106 H 118/66 85 L 08/26/20 16:10 106 H 96/66 83 L 08/26/20 16:00 107 H 70 H 95/56 78 L 08/26/20 15:50 108 H 82 H 95/56 74 L 08/26/20 15:40 109 H 54 H 129/73 68 L 08/26/20 15:33 97.7 F 114 H 82 H 45 L 08/26/20 15:01 114 H 50 H 101/59 64 L 08/26/20 14:50 115 H 50 H 127/70 65 L 08/26/20 14:30 118 H 60 H 131/63 67 L 08/26/20 13:58 120 H 55 H 132/80 55 L 08/26/20 13:49 123 H 68 H 107/80 71 L 08/26/20 13:32 121 H 80 H 73 L 08/26/20 12:50 121 H 70 H 68 L 08/26/20 11:54 123 H 80 H 75 L 08/26/20 11:52 123 H 08/26/20 11:37 121 H 08/26/20 11:28 118 H 80 H 94 L 08/26/20 11:07 98.3 F 117 H 38 H 144/65 49 L Intake and Output 08/26/20 08/26/20 08/26/20 06:59 14:59 22:59 Intake Total 5.715 94.285 Output Total 200 Balance 5.715 -105.715 Intake: Intake, IV Titration 5.715 94.285 Amount propofoL 1,000 mg In 5.715 94.285 Empty Bag 1 bag @ Titrate IV .Q0M [facility] Rx#: [id number] Output: Urine 200 Other: Weight 190.509 kg GENERAL EXAM: Intubated, sedated, paralyzed, morbidly obese 35-year-old - [place] gentleman. HEAD: Normocephalic. EYES: [place] reaction of pupils, equal size. NOSE: Clear with pink turbinates. THROAT: No erythema or exudates. NECK: No masses, no JVD. CHEST: No chest wall deformity. LUNGS: Equal air entry with rhonchi and coarse crackles bilaterally. CVS: S1 and S2 normal with no audible murmur, regular rhythm. ABDOMEN: No hepatosplenomegaly, normal bowel sounds, no guarding or rigidity. SPINE: No scoliosis or deformity SKIN: No rashes CENTRAL NERVOUS SYSTEM: Sedated. Tone is normal in all 4 extremities. EXTREMITIES: There is no peripheral edema. No clubbing, no cyanosis. Peripheral pulses are intact. Results - Laboratory Findings CBC and BMP: 08/26/20 11:28 08/26/20 11:28 ABG ABG pH 7.26 (7.35-7.45) L 08/26/20 15:14 ABG pCO2 49 mmHg (35-45) H 08/26/20 15:14 ABG pO2 38 mmHg (83-108) L* 08/26/20 15:14 ABG O2 Saturation 61.4 % (94-97) L 08/26/20 15:14 PT/INR, D-dimer PT 11.2 sec (9.0-12.0) 08/26/20 11:28 INR 1.1 (<1.2) 08/26/20 11:28 D-Dimer 0.28 mg/L FEU (<0.60) 08/26/20 11:28 Abnormal lab findings: Abnormal Labs 08/26/20 08/26/20 08/26/20 11:28 11:28 11:28 WBC 11.5 H RBC 7.02 H Hct 54.3 H MCV 77.3 L MCH 24.4 L RDW 16.8 H Neutrophils # 10.2 H Lymphocytes # 0.9 L ABG pH ABG pCO2 ABG pO2 ABG O2 Saturation Carbon Dioxide 18 L BUN 29 H Glucose 131 H POC Glucose (mg/dL) Plasma Lactic Acid [place] 3.3 H* Alkaline Phosphatase 149 H Coronavirus (PCR) 08/26/20 08/26/20 08/26/20 11:28 12:47 15:14 WBC RBC Hct MCV MCH RDW Neutrophils # Lymphocytes # ABG pH 7.26 L ABG pCO2 49 H ABG pO2 34 L* 38 L* ABG O2 Saturation 63.9 L 61.4 L Carbon Dioxide BUN Glucose POC Glucose (mg/dL) Plasma Lactic Acid [place] Alkaline Phosphatase Coronavirus (PCR) Detected A 08/26/20 15:32 WBC RBC Hct MCV MCH RDW Neutrophils # Lymphocytes # ABG pH ABG pCO2 ABG pO2 ABG O2 Saturation Carbon Dioxide BUN Glucose POC Glucose (mg/dL) 191 H Plasma Lactic Acid [place] Alkaline Phosphatase Coronavirus (PCR) - Diagnostic Findings Chest x-ray: image reviewed Assessment and Plan Assessment: 1 Acute hypoxemic respiratory failure secondary to acute CoVID 19 pneumonia requiring intubation mechanical ventilatory support on 08/26/2020 shortly after arrival to the ER. 2 Obstructive sleep apnea with an AHI of 20, on CPAP in the outpatient setting 3 Morbid obesity with a BMI of 57 kg/m 4 Hypertension 5 Hyperlipidemia 6 Diabetes mellitus, type II 7 History of chronic bronchial asthma 8 Previous history of pneumonias 9 Lifetime nonsmoker 10 Anxiety/depression Plan: The patient was seen and evaluated by Dr. Samano Chest x-ray, labs, ABGs reviewed Currently intubated, sedated, paralyzed Condition is critical at this point Beyond the oxygen requirements for Remdesivir Initiate tocilizumab Initiate convalescent plasma Lovenox, IV Solu-Medrol, vitamin supplements May need to be considered for ECMO Prognosis is guarded Follow-up chest x-ray, ABGs We'll continue to follow and make further recommendations based on his clinical status I, the cosigning physician, performed a history & physical examination of the patient. Lungs sounds scattered rhonchi, crackles. Maintaining O2 saturations in the 80s on 100% FiO2 and a PEEP of 10. I discussed the assessment and plan of care with my nurse practitioner, Cathy Greenwood. I attest to the above consultation as dictated by her. Time with Patient: Greater than 30
[2020-08-26] MEDS ORDERED: PANTOPRAZOLE 40 MG/10 ML VIAL IVP SCH (17:15)
[2020-08-26] MEDS ORDERED: ENOXAPARIN 40 MG/0.4 ML SYRINGE SQ SCH (17:15)
[2020-08-26] MEDS ORDERED: ASCORBIC ACID 500 MG TAB PO SCH (17:15)
[2020-08-26] MEDS: ARTIFICIAL TEARS-HYPROMELLOSE DROPS 15 ML BTL BOTH EYES SCH ×3 (17:55→23:38)
[2020-08-26] MEDS: methylPREDNISolone SOD SUCCI 125 MG/2 ML VIAL IV SCH ×2 (17:58→23:42)
[2020-08-26] MEDS: fentaNYL (PF) 1,000 MCG in SODIUM CHLORIDE 0.9% 80 ML IV SCH ×2 (18:14→23:51)
--- NOTE | 2020-08-26 18:14 | XR ---
EXAMINATION: XR chest 1V confirm line [facility] DATE AND TIME: 08/26/2020 6:03 PM CLINICAL INDICATION: PHH; CENTRAL LINE PLACEMENT TECHNIQUE: Portable AP semiupright technique COMPARISON: 08/26/2020 radiograph 4:06 PM FINDINGS: Since the prior study, a right IJ central line is in place, with its tip superimposed over the distal SVC. There is no evidence of pneumothorax. Pleural spaces are negative as seen. ET tube tip is similar in appearance, superimposed over the mid trachea at the level of the head of t he clavicles. NG tube is present, its tip cannot be seen as it courses distally to the film. There is redemonstration of the marked bilateral airspace filling opacities seen throughout the upper and mid and lower lung zones bilaterally, left greater than right. No definite new lung parenchymal process. Cardiomediastinal silhouette, bones and soft tissues are unremarkable. IMPRESSION: Post right IJ catheter placement CXR.
[2020-08-26] MEDS ORDERED: NOREPINEPHRINE 4 MG in SODIUM CHLORIDE 0.9% 250 ML IV SCH (18:15)
[2020-08-26 18:16] LABS: ABG Base Excess -4.4 mmol/L; ABG HCO3 24 mmol/L (21-25); ABG Oxygen Saturation 88.4 % (94-97); ABG PCO2 60 mmHg (35-45); ABG PH 7.21 (7.35-7.45); ABG PO2 69 mmHg (83-108); ABG TCO2 25 mmol/L (19-24); Allen Test Performed? Yes
[2020-08-26 18:22] LABS: C Reactive Protein 82.5 mg/L (<10.0)
--- NOTE | 2020-08-26 18:38 | HP ---
HISTORY AND PHYSICAL 35-year-old male, history of obstructive sleep apnea, who wears CPAP as an outpatient, but has been noncompliant with that with a history of hypertension, diabetes mellitus, COPD, chronic bronchial asthma, chronic bronchitis, anxiety, depression, dyslipidemia, recent pneumonia. He was admitted at this time with cough, congestion, shortness of breath. Positive Covid. Chest x-ray shows bilateral patchy infiltrates compatible with atypical pneumonia with Covid positive saturating on the BiPAP 70s and low 80s. Seen in the emergency room. He was placed on mechanical ventilator. Sent to the ICU where he is at this time. Hemoglobin 17.1, creatinine 1.25. He is on Propofol, Nimbex, ventilator with Pulmonary Dr. Samano. PAST HISTORY: Asthma, diabetes, hypertension, dyslipidemia, osteoarthritis, pneumonia, history of anxiety, depression. Former smoker. FAMILY HISTORY: Father unknown. Mother 2 pack-a-day smoker. MEDICATIONS: Home medicines: Norvasc 10 mg daily, Abilify 10 mg daily, Lipitor 40 daily, Lasix 20 mg daily. Losartan 100 mg daily, Flexeril 10 mg b.i.d., testosterone 300 mg every 14 days. Xanax 1 mg t.i.d., vitamin D3. ProAir HFA, metformin 1000 b.i.d., trazodone 150 q.h.s., Amaryl 1 mg b.i.d., metoprolol tartrate 25 b.i.d., hydroxyzine 25-50 daily, Benadryl 100 q.h.s. ALLERGIES: ERYTHROMYCIN. PHYSICAL EXAMINATION: He is resting comfortably on the vent. Pulse is in the mid to high 120s, temp 98.3, blood pressure 118 to 140s over 50s to 60s, O2 saturation is low. He is 85% on the ventilator. He is sedated, morbidly obese, 35-year-old male resting comfortably on vent, obese. BMI is over 40. Heart S1, S2. Lungs decreased breath sounds. SKIN no rashes. Spine: No scoliosis. EXTREMITIES: No edema. Peripheral pulses intact. ASSESSMENT: 1. Acute respiratory failure. 2. Lactic acidosis secondary to acute Covid 19 pneumonia requiring intubation. 3. Obstructive sleep apnea. 4. Morbid obesity. 5. Hypertension. 6. Dyslipidemia. 7. Diabetes mellitus. 8. Chronic obstructive asthma. 9. Previous history of pneumonia. 10.Lifetime nonsmoker. 11.Anxiety, depression. Prognosis guarded. Put him on Covid treatments, ventilator treatments. Continue vitamins; Solu-Medrol, Lovenox, possibly transfer for ECMO. Prognosis extremely guarded. Please see further orders. MMODL / IJN: [id number] /
[2020-08-26] MEDS ORDERED: CHLORHEXIDINE GLUCONATE 15 ML CUP MUCOUS MEM SCH (21:00)
--- NOTE | 2020-08-26 21:07 | P.PN ---
Progress Note - Text Progress Note Date: 08/26/20 discussed patient's condition with the [facility] ecmo team.they recommended higher peep up to 20 for now.repeat ABG ,they are yet to decide whether to accept transfer. will continue to remain in contact with them.Hopefully they will accept him for transfer patt
[2020-08-26 21:53] LABS: ABG PCO2 56 mmHg (35-45); ABG PH 7.21 (7.35-7.45)
[2020-08-26 21:54] LABS: ABG Base Excess -5.3 mmol/L; ABG HCO3 23 mmol/L (21-25); ABG PO2 84 mmHg (83-108); ABG TCO2 24 mmol/L (19-24)
[2020-08-26] MEDS ORDERED: SODIUM BICARB 8.4% 50 ML SYR (1 MEQ/ML) IV STA (22:08)
[2020-08-26 22:24] VITALS: TEMP 99.2
[2020-08-26] MEDS ORDERED: DEXTROSE 5% IN WATER 1,000 ML with SODIUM BICARB (1 MEQ/ML) 150 ML IV SCH (23:00)
[2020-08-27] MEDS ORDERED: SODIUM BICARB 8.4% 50 ML SYR (1 MEQ/ML) IV STA (00:32)
[2020-08-27] MEDS ORDERED: INSULIN REGULAR 100 UNIT/ML VIAL IV ONE (00:33)
[2020-08-27] MEDS ORDERED: CALCIUM CHLORIDE 100 MG/ML 10 ML SYRINGE IVP STA (00:34)
[2020-08-27 02:19] VITALS: BP 129/78; RESP 83
[2020-08-27 02:31] VITALS: PULSE 108
--- NOTE | 2020-08-27 06:39 | PCN ---
PROCEDURE NOTE PROCEDURE PERFORMED: Placement of a right internal jugular triple-lumen catheter. PREOPERATIVE DIAGNOSIS: Acute hypoxic respiratory failure secondary to COVID-19 pneumonitis. POSTOPERATIVE DIAGNOSIS: Acute hypoxic respiratory failure secondary to COVID-19 pneumonitis. PROCEDURE IN DETAIL: This line was placed on an emergent basis. Patient was placed in a supine position, the area of the right cervical region was prepared in a sterile fashion and drapes were applied. The area behind the posterior belly of the sternocleidomastoid was anesthetized locally with lidocaine. Then using the posterior approach, the right internal jugular vein was cannulated easily and a guidewire was placed. The area around the guidewire was dilated. Then a triple-lumen catheter was inserted over the guidewire and the guidewire was removed. Good blood flow in the 3 different ports of the triple-lumen catheter. The line was secured using 3.0 silk sutures. There was no evidence of any immediate complication. Chest x-ray showed adequate placement of the line and no complications. MMODL / IJN: [id number] /
--- NOTE | 2020-08-27 06:39 | PCN ---
PROCEDURE NOTE PROCEDURE PERFORMED: Placement of a right radial arterial line. PREOPERATIVE DIAGNOSIS: Acute hypoxic respiratory failure secondary to COVID-19 pneumonitis. POSTOPERATIVE DIAGNOSIS: Acute hypoxic respiratory failure secondary to COVID-19 pneumonitis. ANESTHESIA: None deployed. PROCEDURE: The right wrist was prepared in a sterile fashion and drapes were applied. The right radial artery was palpated, cannulated easily and a guidewire was placed. A Cook catheter was inserted over the guidewire, and the guidewire was removed. Good blood flow, good waveform noted. No evidence of any complications. Line was secured using 3.0 silk sutures. MMODL / IJN: [id number] /
[2020-08-27] MEDS ORDERED: DEXAMETHASONE SOD PHOSPHATE 10 MG/ML 1 ML VIAL IV SCH (09:00)
== END 2020-08-27 03:11 | disposition short-term general hospital (02) | DRG 208 ==
LOC: EC 11:00 → 2SICU 14:04
PROVIDERS: ADMIT Family Medicine; ATTEND Family Medicine
PROC: 0BH17EZ Insertion of Endotracheal Airway into Trachea, Via Natural or Artificial Opening (ICD-10-PCS; principal; 2020-08-26)
PROC: 5A1935Z Respiratory Ventilation, Less than 24 Consecutive Hours (ICD-10-PCS; principal; 2020-08-26)
PROC: XW033H5 Introduction of Tocilizumab into Peripheral Vein, Percutaneous Approach, New Technology Group 5 (ICD-10-PCS; 2020-08-26)
PROC: 0D9670Z Drainage of Stomach with Drainage Device, Via Natural or Artificial Opening (ICD-10-PCS; 2020-08-26)
PROC: 3E043XZ Introduction of Vasopressor into Central Vein, Percutaneous Approach (ICD-10-PCS; 2020-08-26)
PROC: 5A09357 Assistance with Respiratory Ventilation, Less than 24 Consecutive Hours, Continuous Positive Airway Pressure (ICD-10-PCS; 2020-08-26)
PROC: XW13325 Transfusion of Convalescent Plasma (Nonautologous) into Peripheral Vein, Percutaneous Approach, New Technology Group 5 (ICD-10-PCS; 2020-08-26)
PROC: 4A133J1 Monitoring of Arterial Pulse, Peripheral, Percutaneous Approach (ICD-10-PCS; 2020-08-26)
PROC: 03HY32Z Insertion of Monitoring Device into Upper Artery, Percutaneous Approach (ICD-10-PCS; 2020-08-26)
PROC: 4A133B1 Monitoring of Arterial Pressure, Peripheral, Percutaneous Approach (ICD-10-PCS; 2020-08-26)
PROC: 02HV33Z Insertion of Infusion Device into Superior Vena Cava, Percutaneous Approach (ICD-10-PCS; 2020-08-26)
DX: U07.1 COVID-19 (principal); J12.82 Pneumonia due to coronavirus disease 2019; J96.01 Acute respiratory failure with hypoxia; J44.0 Chronic obstructive pulmonary disease with (acute) lower respiratory infection; Z68.43 Body mass index [BMI] 50.0-59.9, adult; E87.2 Acidosis; E66.01 Morbid (severe) obesity due to excess calories; E11.9 Type 2 diabetes mellitus without complications; G47.33 Obstructive sleep apnea (adult) (pediatric); K44.9 Diaphragmatic hernia without obstruction or gangrene; I44.7 Left bundle-branch block, unspecified; E78.5 Hyperlipidemia, unspecified; I10 Essential (primary) hypertension; F41.9 Anxiety disorder, unspecified; F32.9 Major depressive disorder, single episode, unspecified; G56.02 Carpal tunnel syndrome, left upper limb; G89.29 Other chronic pain; M54.5 Low back pain; M19.042 Primary osteoarthritis, left hand; M19.041 Primary osteoarthritis, right hand; Z91.19 Patient's noncompliance with other medical treatment and regimen; Z79.84 Long term (current) use of oral hypoglycemic drugs; Z79.890 Hormone replacement therapy; Z79.899 Other long term (current) drug therapy; Z87.19 Personal history of other diseases of the digestive system; Z86.16 Personal history of COVID-19; Z87.891 Personal history of nicotine dependence; Z88.1 Allergy status to other antibiotic agents
CPT/HCPCS: 31500; 36415; 36600; 71045; 80053; 82805; 83605; 83615; 83735; 83880; 84484; 85025; 85379; 85610; 85730; 86140; 86850; 86900; 86901; 87070; 87205; 87635; 94003; 94660; 96374; 96375; 99291

== ENCOUNTER → 2021-02-10 | Outpatient (CLI) | payer OTHER ==
[2021-02-11 04:49] LABS: Basophils # (A) 0.07 X 10*3/uL (0.00-0.10); Basophils % (A) 0.6 %; Eosinophils # (A) 0.26 X 10*3/uL (0.04-0.35); Eosinophils % (A) 2.2 %; HCT 46.9 % (39.6-50.0); HGB 14.1 g/dL (13.0-17.0); Lymphocytes # (A) 1.96 X 10*3/uL (0.90-5.00); Lymphocytes % (A) 16.7 %; MCH 21.8 pg (27.0-32.0); MCHC 30.1 g/dL (32.0-37.0); MCV 72.4 fL (80.0-97.0); Microcytosis (M) 2+; Monocytes # (A) 0.43 X 10*3/uL (0.20-1.00); Monocytes % (A) 3.7 %; Neutrophils # (A) 8.95 X 10*3/uL (1.80-7.70); Neutrophils % (A) 76.3 %; Platelet Count 316 X 10*3/uL (140-440); RBC 6.48 X 10*6/uL (4.40-5.60); RDW 19.1 % (11.5-14.5); WBC 11.73 X 10*3/uL (4.50-10.00)
[2021-02-11 17:30] LABS: Potassium 3.9 mmol/L (3.5-5.5)
[2021-02-11 19:43] LABS: African American GFR (CKD) 111.7 (60.0-200.0); Anion Gap 19.4 mmol/L (4.00-12.00); Carbon Dioxide 19.6 mmol/L (21.6-31.8); Non-African American GFR(CKD) 96.4 (60.0-200.0)
== END | disposition home or self-care (01) ==
LOC: LABWHC1 16:21
PROVIDERS: ATTEND Family Medicine
DX: I10 Essential (primary) hypertension (principal); B89 Unspecified parasitic disease
CPT/HCPCS: 36415; 80051; 82565; 84520; 85025

== ENCOUNTER → 2021-04-11 | Outpatient (CLI) | payer OTHER | LOC: LABWHC1 15:06 | PROVIDERS: ATTEND Family Medicine | DX: U07.1 COVID-19 (principal); B89 Unspecified parasitic disease | CPT/HCPCS: 36415; 86769 ==

== ENCOUNTER 2021-08-02 18:08 | Emergency (ER) | payer OTHER ==
[2021-08-02 18:59] VITALS: BP 142/93; PULSE 113; RESP 22; TEMP 98.4
--- NOTE | 2021-08-02 19:25 | ED ---
General Adult HPI - General Chief complaint: Neuro Symptoms/Deficit Stated complaint: Left side weakness, Possible stroke Time Seen by Provider: 08/02/21 19:10 Source: patient Mode of arrival: ambulatory Limitations: no limitations - History of Present Illness Initial comments: Dictation was produced using Trellise dictation software. please excuse any grammatical, word or spelling errors. Chief Complaint: 36-year-old male presents with left facial weakness History of Present Illness: 36-year-old male presents emergency department for couple days of left facial weakness. Patient states that he is having difficulty closing his left eye. He also notices weakness to his left lower face. Patient was recently hospitalized for COVID-19. He is accompanied by his fiance who is in the medical field. She wanted to bring into the emergency room to make sure he did have a stroke. Patient denies any history of stroke however he does have extensive family history of vascular disease. Patient has a numbness and paresthesias to the extremities. He has no pain. The ROS documented in this emergency department record has been reviewed and confirmed by me. Those systems with pertinent positive or negative responses have been documented in the HPI. All other systems are other negative and/or noncontributory. PHYSICAL EXAM: General Impression: Alert and oriented x3, not in acute distress HEENT: Normocephalic atraumatic, extra-ocular movements intact, pupils equal and reactive to light bilaterally, mucous membranes moist. Cardiovascular: Heart regular rate and rhythm Chest: Able to complete full sentences, no retractions, no tachypnea Abdomen: abdomen soft, non-tender, non-distended, no organomegaly Musculoskeletal: Pulses present and equal in all extremities, no peripheral edema Motor: no focal deficits noted Neurological: Facial nerve palsy, he has periorbital left eye weakness and left facial droop with smiling. No focal motor or sensory deficits noted Skin: Intact with no visualized rashes Psych: Normal affect and mood ED course: 36-year-old male with clinical presentation consistent with Sutherland palsy. Runs upon arrival within acceptable limits. Signs and symptoms of facial nerve palsy does not have any other neurologic deficits. No suspicion for central nervous process. Patient counseled heavily on eye care. Patient given prescription for steroids and antivirals. He is also given eyedrops and erythromycin ophthalmic ointment. Counseled on eye care - Related Data Home Medications Medication Instructions Recorded Confirmed amLODIPine [Norvasc] 10 mg PO DAILY 02/04/16 08/26/20 Cyclobenzaprine [Flexeril] 10 mg PO BID 06/29/18 08/26/20 ARIPiprazole [Abilify] 10 mg PO HS 08/06/19 08/26/20 Atorvastatin [Lipitor] 40 mg PO HS 08/06/19 08/26/20 Furosemide [Lasix] 20 mg PO DAILY PRN 08/06/19 08/26/20 Losartan Potassium 100 mg PO DAILY 08/06/19 08/26/20 Testosterone Cypionate 300 mg IM Q14D 08/06/19 08/26/20 [Depo-Testosterone] ALPRAZolam [Xanax] 1 mg PO BID PRN 05/31/20 08/26/20 ALPRAZolam [Xanax] 1 mg PO HS 05/31/20 08/26/20 Albuterol Sulfate [Proair Hfa] 1 - 2 puff INHALATION RT-Q4H PRN 05/31/20 08/26/20 Cholecalciferol [Vitamin D3 (25 50 mcg PO DAILY 05/31/20 08/26/20 Mcg = 1000 Iu)] diphenhydrAMINE [Benadryl] 100 mg PO HS 05/31/20 08/26/20 metFORMIN HCL [Glucophage] 1,000 mg PO BID 05/31/20 08/26/20 traZODone HCL 150 mg PO HS 05/31/20 08/26/20 Glimepiride [Amaryl] 1 mg PO BID 08/26/20 08/26/20 Metoprolol Tartrate [Lopressor] 25 mg PO BID 08/26/20 08/26/20 hydrOXYzine pamoate [Vistaril] 25 - 50 mg PO DAILY PRN 08/26/20 08/26/20 Previous Rx's Medication Instructions Recorded Artificial Tears-Hypromellose 1 drops LEFT EYE Q1H #10 ml 08/02/21 [Artificial Tear Drops] Erythromycin Ophth Oint [Romycin 1 applic LEFT EYE DAILY #1 gm 08/02/21 Ophth Oint] predniSONE 80 mg PO DAILY 7 Days #14 tab 08/02/21 valACYclovir HCL [Valtrex] 1,000 mg PO DAILY 7 Days #7 tablet 08/02/21 Allergies Allergy/AdvReac Type Severity Reaction Status Date / Time erythromycin base Allergy Unknown Verified 08/02/21 18:58 Review of Systems ROS Statement: Those systems with pertinent positive or pertinent negative responses have been documented in the HPI. ROS Other: All systems not noted in ROS Statement are negative. Past Medical History Past Medical History: Asthma, Diabetes Mellitus, Hyperlipidemia, Hypertension, Osteoarthritis (OA), Pneumonia Additional Past Medical History / Comment(s): NIDDM type II, EZEQUIEL with Cpap use- pt has difficulty tolerating, L carpal tunnel syndrome, chronic low back pain, athrtitis bilateral hands, asthma as a child, bronchitis, LBBB, hiatal hernia at , antral polyp, hemorrhoids, obesity History of Any Multi-Drug Resistant Organisms: None Reported Past Surgical History: No Surgical Hx Reported Additional Past Surgical History / Comment(s): EGD, colonoscopy 10 years ago Past Anesthesia/Blood Transfusion Reactions: No Reported Reaction Past Psychological History: Anxiety, Depression Smoking Status: Former smoker Past Alcohol Use History: None Reported Past Drug Use History: None Reported - Past Family History Father History Unknown: Yes Additional Family Medical History / Comment(s): Pt has never met his father. Mother Additional Family Medical History / Comment(s): Mother is a 2 ppd smoker. Pt does not know her medical hx. General Exam Limitations: no limitations Course Vital Signs 08/02/21 18:54 Temperature 98.4 F Pulse Rate 113 H Respiratory 22 Rate Blood Pressure 142/93 O2 Sat by Pulse 98 Oximetry Disposition Clinical Impression: Sutherland palsy Disposition: HOME SELF-CARE Condition: Fair Instructions (If sedation given, give patient instructions): Sutherland Palsy (ED) Additional Instructions: Cornea eye protection Artificial tears qhr while patient is awake Ophthalmic ointment at night Eye should be taped shut at night Protective eye glasses or goggles Prescriptions: Artificial Tears-Hypromellose [Artificial Tear Drops] 1 drops LEFT EYE Q1H #10 ml predniSONE 80 mg PO DAILY 7 Days #14 tab Erythromycin Ophth Oint [Romycin Ophth Oint] 1 applic LEFT EYE DAILY #1 gm valACYclovir HCL [Valtrex] 1,000 mg PO DAILY 7 Days #7 tablet Is patient prescribed a controlled substance at d/c from ED?: No Referrals: Asad Espinosa MD [Primary Care Provider] - 1-2 days
== END 2021-08-02 20:46 | disposition home or self-care (01) ==
LOC: EC 18:08
DX: G51.0 Bell's palsy (principal); J45.909 Unspecified asthma, uncomplicated; E11.9 Type 2 diabetes mellitus without complications; E78.5 Hyperlipidemia, unspecified; I10 Essential (primary) hypertension; M19.90 Unspecified osteoarthritis, unspecified site; F41.9 Anxiety disorder, unspecified; F32.A Depression, unspecified; Z79.84 Long term (current) use of oral hypoglycemic drugs; Z87.891 Personal history of nicotine dependence
CPT/HCPCS: 99283

== ENCOUNTER → 2021-09-06 | Outpatient (CLI) | payer OTHER ==
--- NOTE | 2021-09-06 16:12 | XR ---
EXAMINATION TYPE: XR lumbosacral spine min 4V DATE OF EXAM: 09/06/2021 Comparison: 08/27/2012 Clinical History: 36-year-old male M54.50 Findings: 5 lumbar type vertebral bodies. Some facet arthropathy lower lumbar spine. Somewhat short appearance to the pedicles of the lower lumbar spine could reflect an underlying congenital spinal canal narrowi ng. Mild degenerative disc disease characterized by disc height loss at L5-S1. Otherwise, vertebral b rajiv heights are preserved and alignment is maintained. Impression: 1. Possible underlying congenital spinal canal narrowing in the lower lumbar spine given short appear ance to the pedicles. 2. Mild degenerative disc disease L5-S1. Mild facet arthropathy lower lumbar spine.
== END | disposition home or self-care (01) ==
LOC: RADXRMAIN 13:33
PROVIDERS: ATTEND Family Medicine
DX: M51.37 Other intervertebral disc degeneration, lumbosacral region (principal); M47.816 Spondylosis without myelopathy or radiculopathy, lumbar region
CPT/HCPCS: 72110

== ENCOUNTER 2023-02-15 10:35 | Emergency (ER) | payer OTHER ==
[2023-02-15 11:03] VITALS: RESP 18; TEMP 97.4
--- NOTE | 2023-02-15 13:31 | XR ---
EXAMINATION TYPE: XR chest 2V DATE OF EXAM: 02/15/2023 COMPARISON: 08/26/2020 HISTORY: Chest pain TECHNIQUE: Frontal and lateral views of the chest are obtained. FINDINGS: There is no focal air space opacity. No evidence for pneumothorax. No pleural effusion. The cardiac silhouette size is within normal limits. The osseous structures are grossly intact. IMPRESSION: 1. No acute cardiopulmonary process.
[2023-02-15] MEDS ORDERED: KETOROLAC 15 MG/ML 1 ML VIAL IM STA (14:07)
--- NOTE | 2023-02-15 14:10 | ED ---
General Adult HPI - General Chief complaint: Weakness Stated complaint: Syncope Time Seen by Provider: 02/15/23 12:05 Source: patient Mode of arrival: ambulatory Limitations: no limitations - History of Present Illness Initial comments: This is a 37-year-old male with a past medical history including diabetes and hypertension presents emergency department for increasing fatigue. The patient stated that he had a cough over the last 1 week and was exposed to somebody with COVID-19 4 days ago. The patient stated that because of the continued lethargy he came to the emergency department for evaluation. On arrival, the patient denied any fevers and chills and was resting comfortably. - Related Data Home Medications Medication Instructions Recorded Confirmed amLODIPine [Norvasc] 10 mg PO DAILY 02/04/16 08/26/20 Cyclobenzaprine [Flexeril] 10 mg PO BID 06/29/18 08/26/20 ARIPiprazole [Abilify] 10 mg PO HS 08/06/19 08/26/20 Atorvastatin [Lipitor] 40 mg PO HS 08/06/19 08/26/20 Furosemide [Lasix] 20 mg PO DAILY PRN 08/06/19 08/26/20 Losartan Potassium 100 mg PO DAILY 08/06/19 08/26/20 Testosterone Cypionate 300 mg IM Q14D 08/06/19 08/26/20 [Depo-Testosterone] ALPRAZolam [Xanax] 1 mg PO BID PRN 05/31/20 08/26/20 ALPRAZolam [Xanax] 1 mg PO HS 05/31/20 08/26/20 Albuterol Sulfate [Proair Hfa] 1 - 2 puff INHALATION RT-Q4H PRN 05/31/20 08/26/20 Cholecalciferol [Vitamin D3 (25 50 mcg PO DAILY 05/31/20 08/26/20 Mcg = 1000 Iu)] diphenhydrAMINE [Benadryl] 100 mg PO HS 05/31/20 08/26/20 metFORMIN HCL [Glucophage] 1,000 mg PO BID 05/31/20 08/26/20 traZODone HCL 150 mg PO HS 05/31/20 08/26/20 Glimepiride [Amaryl] 1 mg PO BID 08/26/20 08/26/20 Metoprolol Tartrate [Lopressor] 25 mg PO BID 08/26/20 08/26/20 hydrOXYzine pamoate [Vistaril] 25 - 50 mg PO DAILY PRN 08/26/20 08/26/20 Previous Rx's Medication Instructions Recorded Artificial Tears-Hypromellose 1 drops LEFT EYE Q1H #10 ml 08/02/21 [Artificial Tear Drops] Erythromycin Ophth Oint [Romycin 1 applic LEFT EYE DAILY #1 gm 08/02/21 Ophth Oint] predniSONE 80 mg PO DAILY 7 Days #14 tab 08/02/21 valACYclovir HCL [Valtrex] 1,000 mg PO DAILY 7 Days #7 tablet 08/02/21 Allergies Allergy/AdvReac Type Severity Reaction Status Date / Time erythromycin base Allergy Unknown Verified 02/15/23 10:57 Review of Systems ROS Statement: Those systems with pertinent positive or pertinent negative responses have been documented in the HPI. ROS Other: All systems not noted in ROS Statement are negative. Past Medical History Past Medical History: Asthma, Diabetes Mellitus, Hyperlipidemia, Hypertension, Osteoarthritis (OA), Pneumonia Additional Past Medical History / Comment(s): NIDDM type II, EZEQUIEL with Cpap use- pt has difficulty tolerating, L carpal tunnel syndrome, chronic low back pain, athrtitis bilateral hands, asthma as a child, bronchitis, LBBB, hiatal hernia at , antral polyp, hemorrhoids, obesity History of Any Multi-Drug Resistant Organisms: None Reported Past Surgical History: No Surgical Hx Reported Additional Past Surgical History / Comment(s): EGD, colonoscopy 10 years ago Past Anesthesia/Blood Transfusion Reactions: No Reported Reaction Past Psychological History: Anxiety, Depression Smoking Status: Former smoker Past Alcohol Use History: None Reported Past Drug Use History: None Reported - Past Family History Father History Unknown: Yes Additional Family Medical History / Comment(s): Pt has never met his father. Mother Additional Family Medical History / Comment(s): Mother is a 2 ppd smoker. Pt does not know her medical hx. General Exam Limitations: no limitations General appearance: alert, in no apparent distress, obese Head exam: Present: atraumatic, normocephalic, normal inspection Eye exam: Present: normal appearance, PERRL Pupils: Present: normal accommodation ENT exam: Present: normal exam, normal oropharynx, mucous membranes moist Neck exam: Present: normal inspection, full ROM Respiratory exam: Present: normal lung sounds bilaterally. Absent: respiratory distress, wheezes, decreased breath sounds Cardiovascular Exam: Present: regular rate, normal rhythm, normal heart sounds GI/Abdominal exam: Present: soft, normal bowel sounds Extremities exam: Present: normal inspection, full ROM Back exam: Present: normal inspection, full ROM Neurological exam: Present: alert, oriented X3, CN II-XII intact Psychiatric exam: Present: normal affect, normal mood Skin exam: Present: warm, dry Course Vital Signs 02/15/23 10:57 Temperature 97.4 F L Pulse Rate 92 Respiratory 18 Rate Blood Pressure 170/113 O2 Sat by Pulse 94 L Oximetry Medical Decision Making - Medical Decision Making Was pt. sent in by a medical professional or institution (, CRISTIAN, CARPET TECHNICIAN, urgent care, hospital, or correction...) When possible be specific @ -No Did you speak to anyone other than the patient for history (EMS, parent, family, police, friend...)? What history was obtained from this source @ -No Did you review nursing and triage notes (agree or disagree)? Why? @ -I reviewed and agree with nursing and triage notes Were old charts reviewed (outside hosp., previous admission, EMS record, old EKG, old radiological studies, urgent care reports/EKG's, correction records)? Report findings @ -No old charts were reviewed Differential Diagnosis (chest pain, altered mental status, abdominal pain women, abdominal pain men, vaginal bleeding, weakness, fever, dyspnea, syncope, headache, dizziness, GI bleed, back pain, seizure, CVA, palpatations, mental health)? @ -Respiratory infection, COVID-19, pneumonia EKG interpreted by me (3pts min.). @ -None X-rays interpreted by me (1pt min.). @ -Chest x-ray was obtained and was interpreted by myself showing no acute process. CT interpreted by me (1pt min.). @ -None done U/S interpreted by me (1pt. min.). @ -None done What testing was considered but not performed or refused? (CT, X-rays, U/S, labs)? Why? @ -None What meds were considered but not given or refused? Why? @ -None Did you discuss the management of the patient with other professionals (professionals i.e. , CRISTIAN, CARPET TECHNICIAN, lab, RT, psych nurse, social economist, operations boardman, teacher, correctional officer, case specialist)? Give summary @ -No Was smoking cessation discussed for >3mins.? @ -No Was critical care preformed (if so, how long)? @ -No Were there social determinants of health that impacted care today? How? (Homelessness, low income, unemployed, alcoholism, drug addiction, transportation, low edu. Level, literacy, decrease access to med. care, assisted, rehab)? @ -No Was there de-escalation of care discussed even if they declined (Discuss DNR or withdrawal of care, Hospice)? DNR status @ -No What co-morbidities impacted this encounter? (DM, HTN, Smoking, COPD, CAD, Cancer, CVA, ARF, Chemo, Hep., AIDS, mental health diagnosis, sleep apnea, morbid obesity)? @ -Hypertension, diabetes Was patient admitted / discharged? Hospital course, mention meds given and route, prescriptions, significant lab abnormalities, going to OR and other pertinent info. @ -The patient was seen and evaluated emergency department. Physical exam, the patient was resting in bed without any acute distress. Vital signs admission were stable. Due to the nature the patient's complaints, laboratory workup including a COVID-19, influenza and RSV swabs were obtained. X-ray of the chest was also obtained. All workup was negative and the patient likely had a URI as a cause of his symptoms. The patient was advised to continue to follow-up with his primary care physician for further workup and evaluation and to report back to the emergency department if his pain or symptoms became acutely worse. The patient was agreeable to this and all his questions were answered. The patient was discharged home in stable condition. Undiagnosed new problem with uncertain prognosis? @ -No Drug Therapy requiring intensive monitoring for toxicity (Heparin, Nitro, Insulin, Cardizem)? @ -No Were any procedures done? @ -No Diagnosis/symptom? @ -Upper respiratory infection Acute, or Chronic, or Acute on Chronic? @ -Acute Uncomplicated (without systemic symptoms) or Complicated (systemic symptoms)? @ -Uncompliacted Side effects of treatment? @ -No Exacerbation, Progression, or Severe Exacerbation? @ -No Poses a threat to life or bodily function? How? (Chest pain, [place], [place], pneumonia, PE, COPD, DKA, ARF, appy, cholecystitis, CVA, Diverticulitis, Homicidal, Suicidal, threat to staff... and all critical care pts) @ -No - Lab Data Lab Results 02/15/23 Range/Units 12:30 Influenza Type A (PCR) Not Detected (Not Detectd) Influenza Type B (PCR) Not Detected (Not Detectd) RSV (PCR) Not Detected (Not Detectd) SARS-CoV-2 (PCR) Not Detected (Not Detectd) Disposition Clinical Impression: URI (upper respiratory infection) Disposition: HOME SELF-CARE Condition: Stable Instructions (If sedation given, give patient instructions): Upper Respiratory Infection (DC) Is patient prescribed a controlled substance at d/c from ED?: No Referrals: Asad Espinosa MD [Primary Care Provider] - 1-2 days Time of Disposition: 13:00
[2023-02-15 14:57] VITALS: BP 166/116; PULSE 88
== END 2023-02-15 14:54 | disposition home or self-care (01) ==
LOC: EC 10:35
DX: J06.9 Acute upper respiratory infection, unspecified (principal); E11.9 Type 2 diabetes mellitus without complications; E78.5 Hyperlipidemia, unspecified; I10 Essential (primary) hypertension; J45.909 Unspecified asthma, uncomplicated; F41.9 Anxiety disorder, unspecified; F32.A Depression, unspecified; Z79.84 Long term (current) use of oral hypoglycemic drugs; Z79.899 Other long term (current) drug therapy; Z87.891 Personal history of nicotine dependence; Z20.822 Contact with and (suspected) exposure to COVID-19; Z88.1 Allergy status to other antibiotic agents
CPT/HCPCS: 87636; 71046; 99285; 96372; J1885

== ENCOUNTER → 2024-02-15 | Outpatient (CLI) | payer OTHER ==
[2024-02-15 20:09] LABS: HCT 49.8 % (39.6-50.0); HGB 15.9 g/dL (13.0-17.0); MCH 26.5 pg (27.0-32.0); MCHC 31.9 g/dL (32.0-37.0); Mean Platelet Volume 11.5 FL (9.5-12.2); NRBC Per 100 WBC 0 X 10*3/uL (0.00-0.01); Platelet Count 348 X 10*3/uL (140-440); RDW 14.6 % (11.5-14.5); WBC 12.93 X 10*3/uL (4.50-10.00)
[2024-02-15 20:20] LABS: ALT 27 U/L (10-49); AST 21 U/L (14-35); Albumin 4.1 g/dL (3.8-4.9); Albumin/Globulin Ratio 1.28 Ratio (1.60-3.17); Alkaline Phosphatase 135 U/L (41-126); Blood Urea Nitrogen 19.2 mg/dL (9.0-27.0); Calcium 9.3 mg/dL (8.7-10.3); Chloride 104 mmol/L (96-109); Chol/HDL Ratio 5.54 Ratio; Globulin 3.2 g/dL (1.6-3.3); Glucose 87 mg/dL (70-110); LDL Cholesterol,Calculated 148.8 mg/dL (0.0-131.0); Potassium 4.5 mmol/L (3.5-5.5); Sodium 139 mmol/L (135-145); Total Bilirubin 0.8 mg/dL (0.3-1.2); Total Protein 7.3 g/dL (6.2-8.2)
== END | disposition home or self-care (01) ==
LOC: LABWHC1 15:31
PROVIDERS: ATTEND Family Medicine
DX: I10 Essential (primary) hypertension (principal); B89 Unspecified parasitic disease; Z79.899 Other long term (current) drug therapy
CPT/HCPCS: 36415; 80053; 80061; 83036; 84443; 85027

== ENCOUNTER → 2024-09-10 | Outpatient (CLI) | payer OTHER ==
--- NOTE | 2024-09-10 09:37 | US ---
EXAMINATION TYPE: US abdomen complete DATE OF EXAM: 09/10/2024 COMPARISON: NONE CLINICAL INDICATION: Male, 39 years old with history of R10.84 GENERALIZED ABDOMINAL PAIN; Generalize d abdomen pain. TECHNIQUE: Grayscale and color Doppler imaging of the abdomen was performed. FINDINGS: EXAM MEASUREMENTS: Liver Length: 17.8 cm Gallbladder Wall: 0.2 cm CBD: 0.5 cm, color Doppler imaging was utilized to isolate the common bile duct for measurement. Spleen: 8.2 cm Right Kidney: 11.6 x 6.4 x 6.1 cm Left Kidney: 10.8 x 5.0 x 6.0 cm Pancreas: Tail obscured by overlying bowel gas. Portions seen appear echogenic. Liver: Upper limits of normal in size. No dilated ducts, masses or cysts. Gallbladder: Echogenic focus seen = 0.9 cm Evidence for sonographic Matute's sign: neg CBD: wnl Spleen: wnl Right Kidney: wnl, No hydronephrosis, calculi or masses seen Left Kidney: Upper mid anechoic lesion - 2.3 x 1.6 x 2.1 cm Upper IVC: wnl Abd Aorta: limited visualization due to bowel gas and body habitus The liver is homogenous. The intrahepatic portion of the IVC is within normal limits. Limited visual ization of the abdominal aorta due to overlying bowel gas and patient body habitus. Gallstone is iden tified measuring up to 0.9 cm. No wall thickening or surrounding fluid. Negative sonographic Matute s ign. Common bile duct is unremarkable. The visualized portions of the pancreas are homogenous and ec hogenic. The spleen is unremarkable. Kidneys are symmetric and free of hydronephrosis. No right tila al lesion identified. Upper left mid kidney simple cyst measuring up to 2.3 cm. No follow-up recommen ded. IMPRESSION: 1. No ultrasound evidence for acute process. 2. Cholelithiasis without ultrasound evidence for acute cholecystitis. 2. Simple left renal cyst. [facility], , 09/10/2024 9:35 AM
== END | disposition home or self-care (01) ==
LOC: RADUSWWP 08:22
PROVIDERS: ATTEND Family Medicine
DX: K80.20 Calculus of gallbladder without cholecystitis without obstruction (principal); N28.1 Cyst of kidney, acquired
CPT/HCPCS: 76700